=== PATIENT | female | born 1965 | race Caucasian/White ===

== ENCOUNTER 2021-08-15 10:28 | Day surgery (SDC) | payer MEDICARE, MEDICAID, SELFPAY ==
--- NOTE | 2021-08-14 10:44 | P.CONAN_ITS ---
Documented by User: Aidee Howard NP 08/14/21 10:45 HPI - Anesthesia Eval Consult details Narrative: 56yo F for Colonoscopy prison resident, Guardian for consents Overstim/loud noises can cause stress induced seizures PMFSH Active Problems Active Problems: All Active Problems (Updated 07/19/21 @ 14:20 by Magdalena Garrett RN) Cervical cancer screening (Acute) Adult general medical exam (Acute) Paronychia (Acute) Paronychia of fourth toe of left foot (Acute) Seizures (Acute) Anxiety (Acute) Chronic idiopathic constipation (Acute) Difficult bowel movements (Acute) Screening for breast cancer (Acute) Screening for colon cancer (Acute) Screening for diabetes mellitus (Acute) Screening for hyperlipidemia (Acute) Incontinence of urine in female (Acute) Conjunctivitis (Acute) Mentally challenged (Acute) Status epilepticus (Acute) Past Medical History Medical History Anxiety Chronic idiopathic constipation Conjunctivitis COVID-19 vaccine series completed Difficult bowel movements Incontinence of urine in female Mentally challenged Resides in extermination supervisor care facility Screening for breast cancer Screening for colon cancer Screening for diabetes mellitus Screening for hyperlipidemia Seizures Status epilepticus Family History Family History Father No problems noted. Mother Diabetes Cancer Surgical History Surgical History H/O tooth extraction Social History Social History Household Members Other:: resides in longterm Housing: Other Housing Other:: longterm Are you a primary career technical education teacher to a significant other at home: No Do you presently have visiting nurse or other home services: Yes (as above noted) Alcohol intake: never Patient Tobacco Use Status: Never used Tobacco e-Cigarette/Vaping Use: Never Used Second Hand Smoke Exposure: No Use of substances other than those prescribed or required for medical reasons: No Are you DNR?: No Advance Directives: No Advance Directives Information Provided: Yes service: No Current occupational status: disabled Meds Allergies Allergy/AdvReac Type Severity Reaction Status Date / Time No Known Allergies Allergy Verified 05/31/21 10:54 Home Medications Medication Instructions Recorded Confirmed Last Taken Type clonazepam 1 mg tablet 1 mg PO BEDTIME 03/20/20 07/19/21 Unknown History lamotrigine 200 mg tablet 200 mg PO BID 03/20/20 07/19/21 Unknown History phenobarbital 97.2 mg tablet 97.2 mg PO BEDTIME 03/20/20 07/19/21 Unknown History lacosamide 100 mg tablet (Vimpat) 100 mg PO BID 03/21/20 07/19/21 08/15/21 08:00 History fluoxetine 10 mg capsule 10 mg PO QAM 10/02/20 07/19/21 Unknown History lorazepam 0.5 mg tablet 0.5 mg PO BEDTIME PRN 10/02/20 07/19/21 Unknown History perampanel 2 mg tablet 2 mg PO BEDTIME 10/02/20 07/19/21 Unknown History Exam Exam Date and Time: August 14, 2021 1044 Assessment and Plan Assessment Anesthesia Assessment: Chart Reviewed Documented by User: Karlos Mojica MD 08/15/21 15:49 PMFSH Past Medical History Medical History Anxiety Chronic idiopathic constipation Conjunctivitis COVID-19 vaccine series completed Difficult bowel movements Incontinence of urine in female Mentally challenged Resides in extermination supervisor care facility Screening for breast cancer Screening for colon cancer Screening for diabetes mellitus Screening for hyperlipidemia Seizures Status epilepticus Family History Family History Father No problems noted. Mother Diabetes Cancer Family history of problems with anesthesia: No Surgical History Surgical History H/O tooth extraction History of Problems with Anesthesia: No Social History Social History Household Members Other:: resides in longterm Housing: Other Housing Other:: longterm Are you a primary career technical education teacher to a significant other at home: No Do you presently have visiting nurse or other home services: Yes (as above noted) Alcohol intake: never Patient Tobacco Use Status: Never used Tobacco e-Cigarette/Vaping Use: Never Used Second Hand Smoke Exposure: No Use of substances other than those prescribed or required for medical reasons: No Are you DNR?: No Advance Directives: No Advance Directives Information Provided: Yes service: No Current occupational status: disabled Meds Allergies Allergy/AdvReac Type Severity Reaction Status Date / Time No Known Allergies Allergy Verified 05/31/21 10:54 Home Medications Medication Instructions Recorded Confirmed Last Taken Type clonazepam 1 mg tablet 1 mg PO BEDTIME 03/20/20 07/19/21 Unknown History lamotrigine 200 mg tablet 200 mg PO BID 03/20/20 07/19/21 Unknown History phenobarbital 97.2 mg tablet 97.2 mg PO BEDTIME 03/20/20 07/19/21 Unknown History lacosamide 100 mg tablet (Vimpat) 100 mg PO BID 03/21/20 07/19/21 08/15/21 08:00 History fluoxetine 10 mg capsule 10 mg PO QAM 10/02/20 07/19/21 Unknown History lorazepam 0.5 mg tablet 0.5 mg PO BEDTIME PRN 10/02/20 07/19/21 Unknown History perampanel 2 mg tablet 2 mg PO BEDTIME 10/02/20 07/19/21 Unknown History Exam Airway Mallampati Class: IV (Patient not coperative for a proper airway exam ) Loose/Missing/Broken Teeth: Yes (NO teeth ) Heart: S1, S2 Lungs: b/l breath sounds Assessment and Plan Assessment Anesthesia Assessment: Anesthesia Plan Discussed Final Anesthetic Review Family History of Problems with Anesthesia: No History of Problems with Anesthesia: No NPO: Yes ASA Class: III Final Preanesthetic Review: Meds/Allgs Chart Reviewed, Consent Obtained/Reviewed and Anes Risks/Benef Reviewed Patient Risk: High Procedure Risk: Intermediate Anesthetic Plan Anesthetic Plan: MAC: Disposition: Standard PACU
[2021-08-15 11:23] VITALS: BP 126/72; PULSE 98; RESP 18; TEMP 36.6; O2SAT 98; BMI 20.1
[2021-08-15] MEDS: Lactated Ringers 1,000 ML 100 ML IVCONT (11:33)
[2021-08-15 12:35] VITALS: BP 111/51; PULSE 103; RESP 17; TEMP 36.5; O2SAT 98
--- NOTE | 2021-08-15 12:36 | P.BOP_ITS ---
Brief Operative Note Date of Service: 08/15/21 Pre-op diagnosis: Screening Post-op diagnosis: other (Colon polyps) Procedure: Colonoscopy to the cecum and TI with hot snare polypectomy x 2 Surgeon: Yusuf Barraza Anesthesia: MAC Was an Set Up Mechanic Automatic Line used for this Procedure?: No Estimated blood loss (mL): 0 Pathology: other (A. Cecal polyps x 2) Condition: stable Disposition: PACU
[2021-08-15 12:50] VITALS: BP 110/80; PULSE 90; RESP 16; TEMP 35.9; O2SAT 99
--- NOTE | 2021-08-16 00:37 | OP_ITS ---
SURGEON: Yusuf Barraza MD INDICATIONS: The patient presents for evaluation of colorectal cancer screening. Full consent has been obtained from her legal guardian, her brother, Buzz, including risks of bleeding and perforation. PREOPERATIVE DIAGNOSIS: Colorectal cancer screening. POSTOPERATIVE DIAGNOSIS: PROCEDURE PERFORMED: ESTIMATED BLOOD LOSS: COMPLICATIONS: ANESTHESIA: Monitored anesthesia care. ASSISTANTS: SPECIMENS: PROCEDURES: Colonoscopy to cecum and terminal ileum with hot snare polypectomy. POSTOPERATIVE DIAGNOSES: Colorectal cancer screening, colon polyps, diverticulosis, and internal hemorrhoids. DESCRIPTION OF PROCEDURE: The patient was placed in the left lateral decubitus position. The digital rectal exam revealed no abnormalities. The Olympus video pediatric colonoscope was entered into the rectum and advanced easily to the cecum. Once in the cecum, I did identify cecal pouch with appendiceal orifice and a normal-appearing ileocecal valve. The terminal ileum was cannulated and appeared normal. The scope was withdrawn back in the colon. The entire cecum was well visualized. In the cecum, there was an approximately 12 mm polyp and a 5 mm polyp. These were both removed with a hot snare polypectomy and recovered by suction. Both polypectomy sites appeared clean, without any sign of residual polyp nor bleeding. The remainder of the cecum appeared normal. The scope was then slowly withdrawn assessing all mucosal surfaces carefully. Preparation was excellent. I did not visualize any other polyps, colitis, or angiodysplasia. There was a mild amount of sigmoid diverticulosis. In the rectum, scope was retroflexed visualizing internal hemorrhoids, but no other pathology. The rectal mucosa appeared normal. The scope was straightened and withdrawn from the patient. She tolerated the procedure well and was returned to the recovery area in stable condition. IMPRESSION: 1. Colon polyps. 2. Diverticulosis. 3. Internal hemorrhoids. PLAN: The results of the pathology will be checked. Assuming these are tubular adenoma, I would recommend a followup colonoscopy in 3 years for further surveillance. She will otherwise see me on a p.r.n. basis. Instructions have been given that she should not use any aspirin and NSAIDs for 1 week. This has been discussed with her brother. MD MILLA Feng/GEOFF / [id number]
== END 2021-08-15 14:31 | disposition home or self-care (01) ==
PROVIDERS: PCP Internal Medicine; Visit Provider Internal Medicine
PROC: 0DJD8ZZ Inspection of Lower Intestinal Tract, Via Natural or Artificial Opening Endoscopic (ICD-10-PCS; CPT 45378; principal; 2021-08-15 11:20)
DX: Z12.11 Encounter for screening for malignant neoplasm of colon (principal); D12.0 Benign neoplasm of cecum; K57.30 Diverticulosis of large intestine without perforation or abscess without bleeding; K64.8 Other hemorrhoids; K59.00 Constipation, unspecified; R41.9 Unspecified symptoms and signs involving cognitive functions and awareness; G40.901 Epilepsy, unspecified, not intractable, with status epilepticus; Z79.899 Other long term (current) drug therapy
CPT/HCPCS: 45385; 88305; J2370

== ENCOUNTER 2021-11-13 14:00 | Outpatient (REF) | payer MEDICARE, MEDICAID, SELFPAY | END 2021-11-13 14:01 | disposition home or self-care (01) | LOC: HO.MAMMO 14:00 | PROVIDERS: PCP Internal Medicine; Visit Provider Internal Medicine | DX: Z13.89 Encounter for screening for other disorder (principal) ==

== ENCOUNTER 2022-11-21 15:57 | Outpatient (AMB) | payer MEDICARE, MEDICAID, SELFPAY ==
--- NOTE | 2022-11-21 16:44 | MHC.PC.OV ---
Vital Signs 11/21/22 16:45 Height 4 ft 8 in Weight 118 lb BMI 26.5 BP 118/72 Blood Pressure Location Rt brachial Position Sitting Pulse 99 Pulse Source Pulse Oximeter Pulse Oximetry (%) 97 Oxygen Delivery Method Room Air Intake Visit Reasons: [place] 11/12/22, fall on knees Intake Note: Patient is here to follow-up after a visit the emergency department at [facility] on 11/12/22 Soil Sampler Required: No Operating Theatre Technician: Present Accompanied by: staff Allergies No Known Allergies Allergy (Verified 11/21/22 16:52) Medication List - Last Reconciled 11/22/22 by Mago Baker MD clonazepam 1 mg PO BEDTIME diaper,brief,adult,disposable As directed fluoxetine 10 mg PO QAM Gait belt As directed lacosamide (Vimpat) 100 mg PO BID lamotrigine 200 mg PO BID miscellaneous medical supply HOSPITAL BED WITH MATTRESS perampanel 2 mg PO BEDTIME phenobarbital 97.2 mg PO BEDTIME Tobacco use date assessed: 11/21/22 Dental Screening Dental Screen Date: 11/21/22 Did you have a dental visit in the last 12 months?: Yes Did you have a dental problem in the last 6 months where you did not have access to dental care?: No Was dental information given to patient?: Patient has dentist HPI HPI Comments History of Present Illness Details This is a 57-year-old female mentally challenged with seizures and anxiety that comes today accompanied by staff member from her home due to any injury that happened 11/12/2022 and had to go to ER. Patient fell on her knees. Does not seem to be in pain or has any gait abnormality. Seizures stable with medications and this is follow by Neurology. Anxiety stable with benzodiazepines. No acute complaint. [facility] Medical History (Updated 11/22/22 @ 10:03 by Mago Baker MD) Anxiety Chronic idiopathic constipation Conjunctivitis COVID-19 vaccine series completed Difficult bowel movements Incontinence of urine in female Mentally challenged Resides in [facility] care facility Screening for breast cancer Screening for colon cancer Screening for diabetes mellitus Screening for hyperlipidemia Seizures Status epilepticus Surgical History H/O tooth extraction Family History Father No problems noted. Mother Diabetes Cancer Social History Household Members Other:: resides in skilled nursing Housing: Other Housing Other:: skilled nursing Are you a primary managed care coordinator to a significant other at home: No Do you presently have visiting nurse or other home services: Yes (as above noted) Alcohol intake: never Patient Tobacco Use Status: Never used Tobacco e-Cigarette/Vaping Use: Never Used Second Hand Smoke Exposure: No service: No Current occupational status: disabled Cognitive needs: No Hearing needs: No Vision needs: No Questionnaire Thrive Questionnaire Date Thrive assessed: 08/01/22 JAMES-7 AMB Questionnaire JAMES-7 Date JAMES - 7 assessed: 08/01/22 Source: Developed by Drs. Yusuf Landin, Abi Gallardo, Deyvi Lomeli and colleagues, with an educational javi from [employer]. Review of Systems Const All systems reviewed & are unremarkable except as noted in HPI and below Eyes Reports no additional complaints, Denies change in vision and Denies other visual disturbances Card Denies chest pain at rest, Denies chest pain with activity, Denies edema, Denies irregular heart rhythm, Denies claudication, Denies dyspnea, Denies dyspnea on exertion, Denies orthopnea, Denies paroxysmal nocturnal dyspnea and Denies slow heart rate Resp Denies cough, Denies dyspnea and Denies dyspnea on exertion GI Denies abdominal pain, Denies change in bowel habits, Denies excessive flatus, Denies nausea and Denies vomiting Denies urinary incontinence, Denies urinary hesitancy and Denies urinary urgency Musc Denies abnormal gait, Denies atrophy, Denies deformity and Denies limited range of motion Skin/Breast Denies bleeding lesions, Denies changing lesions and Denies rash Neuro Denies abnormal gait and Denies lack of coordination Physical exam (Primary Care) Vital Signs: Last Vital Signs Pulse 99 11/21/22 16:45 BP 118/72 11/21/22 16:45 Pulse Ox 97 11/21/22 16:45 Oxygen Delivery Method Room Air 11/21/22 16:45 BMI result Body Mass Index 26.5 Tobacco/Smoking Status: Tobacco use Status Tobacco use date assessed 11/21/22 11/21/22 16:45 Patient Tobacco Use Status Never used Tobacco 11/21/22 16:45 e-Cigarette/Vaping Use Never Used 11/21/22 16:45 Thrive Assessment: Date of Thrive Assessment Date Thrive assessed 08/01/22 11/21/22 16:45 Eyes General: appearance normal, both eyes and all related structures Eyelids: Yes eyelids normal Conjunctivae: conjunctivae normal Neck Neck: Yes normal visual inspection and Yes supple Resp Effort & Inspection: normal respiratory effort Auscultation: clear to auscultation bilaterally Cardio Jugular venous distension: no JVD Rate: regular rate Rhythm: regular rhythm Heart sounds: S1 normal heart sound present and S2 normal heart sound present Extrem General: Yes full ROM Assessment and Plan Assessment & Plan (1) Knee injury: Code(s): S89.90XA - Unspecified injury of unspecified lower leg, initial encounter Plan: Continue walking as before and doing her daily activities. (2) Seizures: Comment: last seizure 06/26/21-full body tremors-lasted 10 seconds Code(s): R56.9 - Unspecified convulsions Plan: Continue Vimpat and phenobarbital. Follow-up with Neurology. (3) Anxiety: Code(s): F41.9 - Anxiety disorder, unspecified Plan: Continue benzodiazepines. Orders: Orders Comprehensive [place]. Panel Fast 11/21/22 R56.9 - Unspecified convulsions Lipid Panel 11/21/22 Z00.00 - Encounter for general adult medical examination without abnormal findings Complete Blood Count Auto Diff 11/21/22 R56.9 - Unspecified convulsions Coding Level of Care Code Est Pt Level 3 (80572) Diagnoses Knee injury S89.90XA Seizures R56.9 Anxiety F41.9 Time Spent (min) 19
[2022-11-21 16:45] VITALS: BP 118/72; PULSE 99; O2SAT 97; BMI 26.5
== END 2022-11-21 16:58 | disposition home or self-care (01) ==
PROVIDERS: PCP Internal Medicine; Visit Provider Internal Medicine
DX: S89.90XA Unspecified injury of unspecified lower leg, initial encounter (principal); R56.9 Unspecified convulsions; F41.9 Anxiety disorder, unspecified
CPT/HCPCS: 99213

== ENCOUNTER 2022-12-17 09:59 | Outpatient (AMB) | payer MEDICARE, MEDICAID, SELFPAY ==
--- NOTE | 2022-12-17 10:08 | MHC.PC.OV ---
Vital Signs 12/17/22 10:09 Height 4 ft 8 in Weight 118 lb 9 oz BMI 26.6 BP 120/80 Blood Pressure Location Lt brachial Position Sitting Pulse 113 H Pulse Source Pulse Oximeter Pulse Oximetry (%) 95 Oxygen Delivery Method Room Air Intake Visit Reasons: physical exam Intake Note: Patient is here today for a physical. Graphic Design Intern Required: No Accompanied by: Crystal-Custodial Allergies No Known Allergies Allergy (Verified 12/17/22 10:28) Medication List - Last Reconciled 12/17/22 by Mago Baker MD clonazepam 1 mg PO BEDTIME diaper,brief,adult,disposable As directed fluoxetine 10 mg PO QAM Gait belt As directed lacosamide (Vimpat) 100 mg PO BID lamotrigine 200 mg PO BID miscellaneous medical supply HOSPITAL BED WITH MATTRESS perampanel 2 mg PO BEDTIME phenobarbital 97.2 mg PO BEDTIME Tobacco use date assessed: 11/21/22 Dental Screening Dental Screen Date: 12/17/22 Did you have a dental visit in the last 12 months?: No Did you have a dental problem in the last 6 months where you did not have access to dental care?: No Was dental information given to patient?: No HPI HPI Comments History of Present Illness Details This is a 57-year-old female with seizures that comes for her physical exam accompanied by 1 of the staff members from the home that she lives. Patient has developmental delay and keeps repeating same phrases such as hi, how are you? and good job . Seizures has happen the past month and last 10-20 seconds. This is follow by Neurology. Last colonoscopy was 2021 showing tubular adenoma. No acute complaint. [facility] Medical History Anxiety Chronic idiopathic constipation Conjunctivitis COVID-19 vaccine series completed Difficult bowel movements Incontinence of urine in female Mentally challenged Resides in terminal worker care facility Screening for breast cancer Screening for colon cancer Screening for diabetes mellitus Screening for hyperlipidemia Seizures Status epilepticus Surgical History H/O tooth extraction Family History Father No problems noted. Mother Diabetes Cancer Social History Household Members Other:: resides in prison Housing: Other Housing Other:: prison Are you a primary nurse healthcare manager to a significant other at home: No Do you presently have visiting nurse or other home services: Yes (as above noted) Alcohol intake: never Patient Tobacco Use Status: Never used Tobacco e-Cigarette/Vaping Use: Never Used Second Hand Smoke Exposure: No service: No Current occupational status: disabled Cognitive needs: No Hearing needs: No Vision needs: No Questionnaire Thrive Questionnaire Date Thrive assessed: 08/01/22 JAMES-7 AMB Questionnaire JAMES-7 Date JAMES - 7 assessed: 08/01/22 Source: Developed by Drs. Yusuf Landin, Abi Gallardo, Deyvi Lomeli and colleagues, with an educational javi from [employer]. Review of Systems Const All systems reviewed & are unremarkable except as noted in HPI and below Eyes Reports no additional complaints, Denies change in vision and Denies other visual disturbances Card Denies chest pain at rest, Denies chest pain with activity, Denies edema, Denies irregular heart rhythm, Denies claudication, Denies dyspnea, Denies dyspnea on exertion, Denies orthopnea, Denies paroxysmal nocturnal dyspnea and Denies slow heart rate Resp Denies cough, Denies dyspnea and Denies dyspnea on exertion GI Denies abdominal pain, Denies change in bowel habits, Denies excessive flatus, Denies nausea and Denies vomiting Denies urinary incontinence, Denies urinary hesitancy and Denies urinary urgency Musc Denies abnormal gait, Denies atrophy, Denies deformity and Denies limited range of motion Skin/Breast Denies bleeding lesions, Denies changing lesions and Denies rash Neuro Denies abnormal gait and Denies lack of coordination Physical exam (Primary Care) Vital Signs: Last Vital Signs Pulse 113 H 12/17/22 10:09 BP 120/80 12/17/22 10:09 Pulse Ox 95 12/17/22 10:09 Oxygen Delivery Method Room Air 12/17/22 10:09 BMI result Body Mass Index 26.6 Tobacco/Smoking Status: Tobacco use Status Tobacco use date assessed 11/21/22 12/17/22 10:09 Patient Tobacco Use Status Never used Tobacco 12/17/22 10:09 e-Cigarette/Vaping Use Never Used 12/17/22 10:09 Thrive Assessment: Date of Thrive Assessment Date Thrive assessed 08/01/22 12/17/22 10:09 Eyes General: appearance normal, both eyes and all related structures Eyelids: Yes eyelids normal Conjunctivae: conjunctivae normal Neck Neck: Yes normal visual inspection and Yes supple Resp Effort & Inspection: normal respiratory effort Auscultation: clear to auscultation bilaterally Cardio Jugular venous distension: no JVD Rate: regular rate Rhythm: regular rhythm Heart sounds: S1 normal heart sound present and S2 normal heart sound present Extrem General: Yes full ROM Assessment and Plan Assessment & Plan (1) Adult general medical exam: Code(s): Z00.00 - Encounter for general adult medical examination without abnormal findings Plan: Repeat in a year. (2) Seizures: Comment: last seizure 06/26/21-full body tremors-lasted 10 seconds Code(s): R56.9 - Unspecified convulsions Plan: Continue phenobarbial and lamictal. Follow up with neurology. Orders: Orders Comprehensive [place]. Panel Fast Today Z00.00 - Encounter for general adult medical examination without abnormal findings Lipid Panel Today Z00.00 - Encounter for general adult medical examination without abnormal findings Complete Blood Count Auto Diff Today R56.9 - Unspecified convulsions Phenobarbital Today R56.9 - Unspecified convulsions Lamotrigine Lamictal Today R56.9 - Unspecified convulsions Coding Level of Care Code Est Pt Prev Care 40-64y(04126) Diagnoses Adult general medical exam Z00.00 Seizures R56.9 Time Spent (min) 33
[2022-12-17 10:09] VITALS: BP 120/80; PULSE 113; O2SAT 95; BMI 26.6
== END 2022-12-17 10:40 | disposition home or self-care (01) ==
PROVIDERS: PCP Internal Medicine; Visit Provider Internal Medicine
DX: Z00.00 Encounter for general adult medical examination without abnormal findings (principal); R56.9 Unspecified convulsions
CPT/HCPCS: 99396

== ENCOUNTER 2022-12-19 08:45 | Outpatient (REF) | payer MEDICARE, MEDICAID, SELFPAY ==
[2022-12-19 09:00] LABS: MANUAL DIFF FLAG NO
[2022-12-19 09:47] LABS: Basophils Percent Auto 0.5 % (0-2); Eosinophils Absolute Auto 0.1 X10*3/uL (0.0-0.4); Eosinophils Percent Auto 1.4 % (0-4); Hematocrit 40.7 % (37.0-47.0); Hemoglobin 13.6 g/dl (12.0-16.0); Imm Gran Abs Auto 0.01 X10*3/uL (0.00-0.03); Imm Gran Pct Auto 0.1 % (0.0-0.4); Lymphocytes Absolute Auto 2.9 X10*3/uL (1.2-4.9); Lymphocytes Percent Auto 36.8 % (20-40); Mean Corpuscular HGB Conc 33.4 g/dl (31.0-35.0); Mean Corpuscular Hemoglobin 31.8 pg (27.0-33.0); Mean Corpuscular Volume 95.1 fL (80.0-98.0); Mean Platelet Volume 10.1 fL (9.4-12.3); Monocytes Absolute Auto 0.5 X10*3/uL (0.1-1.2); Monocytes Percent Auto 6.2 % (2-11); Neutrophils Absolute Auto 4.3 x10*3/uL (2.0-8.3); Platelet Count 328 X10*3/uL (160-400); Red Blood Count 4.28 X10*6/uL (4.20-5.50); White Blood Count 7.9 X10*3/uL (4.8-10.8)
[2022-12-19 10:33] LABS: Alanine Aminotransferase < 5 U/L (0-31); Albumin Level 4.2 g/dL (3.5-5.0); Alkaline Phosphatase 134 U/L (39-117); Anion Gap 15 (12-20); Aspartate Amino Transferase 19 U/L (5-31); Bilirubin Total 0.3 mg/dL (0.0-1.0); Blood Urea Nitrogen 12 mg/dL (9-16); Calcium 9.5 mg/dL (8.4-10.2); Carbon Dioxide 24 mmol/L (22-29); Chloride 106 mmol/L (96-108); Cholesterol 343 mg/dL (<200); Estimated Glomerular Filt Rate 49; Glucose Fasting 84 mg/dL (60-99); HDL Cholesterol 61 mg/dL (>40); LDL Cholesterol Calculated 263 mg/dL (<100); Potassium 4.3 mmol/L (3.3-5.1); Sodium 141 mmol/L (135-145); Total Protein 7.2 g/dL (6.5-8.0); Triglycerides 95 mg/dL (<150)
[2022-12-24 04:49] LABS: Lamotrigine Lamictal 7.2 mcg/mL (2.5-15.0)
== END 2022-12-19 08:46 | disposition home or self-care (01) ==
LOC: HO.LAB 08:45
PROVIDERS: PCP Internal Medicine; Visit Provider Internal Medicine
DX: Z00.00 Encounter for general adult medical examination without abnormal findings (principal); R56.9 Unspecified convulsions; Z79.899 Other long term (current) drug therapy
CPT/HCPCS: 36415; 80053; 80061; 80175; 80184; 85025

== ENCOUNTER 2023-02-03 11:08 | Outpatient (AMB) | payer MEDICARE, MEDICAID, SELFPAY ==
--- NOTE | 2023-02-03 11:10 | A.OFFPC_ITS ---
Vital Signs 3 02/03/23 11:11 Height 4 ft 8 in Weight 53.07 kg BMI 26.2 BP 122/82 Blood Pressure Location Lt brachial Position Sitting Intake Visit Reasons: ed 01/07/2023 fall & hit head Intake Note: Patient here for [facility] follow up 01/07/23 fall, hit head Disc Inspector Required: No Accompanied by: staff Allergies No Known Allergies Allergy (Verified 02/03/23 11:13) Tobacco use date assessed: 11/21/22 Dental Screening Dental Screen Date: 02/03/23 Did you have a dental visit in the last 12 months?: No Did you have a dental problem in the last 6 months where you did not have access to dental care?: No Was dental information given to patient?: Patient declined HPI HPI Comments 2 History of Present Illness0 Details 57-year-old female past medical history significant for status epilepticus, mental delay,anxiety, chronic idiopathic constipation. Patient of Dr. Sanches presents today for emergency room follow-up patient was being helped to bathroom by fdc staff she was sitting on the toilet she became over stimulated striking the back of her head on a railing. Patient was evaluated and [facility] Emergency Room. Patient was neurologically her baseline denies any seizure activity, no acute injury or hematoma noted to occiptal region. Patient reports today with fdc staff, fdc staff patient. For see report that patient jumped up from the couch this week and in her usual behavior and fell to the ground striking her left frontal region overhead, patient was evaluated a number [facility] Emergency Room again no acute injury does have lightened ecchymosis noted to left frontal region. Denied any loss of consciousness, seizure activity, per fdc staff patient neurologically at her baseline. During this appointment fdc staff noted that patient has left eye is clear appears red with for which she just started developing today and concerned over possible pinkeye. Will send erythromycin ointment for this. [facility]LY [facility], [facility] Medical History Anxiety Chronic idiopathic constipation Conjunctivitis COVID-19 vaccine series completed Difficult bowel movements Incontinence of urine in female Mentally challenged Resides in detention care facility Screening for breast cancer Screening for colon cancer Screening for diabetes mellitus Screening for hyperlipidemia Seizures Status epilepticus Surgical History H/O tooth extraction Family History Father No problems noted. Mother Diabetes Cancer Social History Household Members Other:: resides in fdc Housing: Other Housing Other:: fdc Are you a primary overnight caregiver to a significant other at home: No Do you presently have visiting nurse or other home services: Yes (as above noted) Alcohol intake: never Patient Tobacco Use Status: Never used Tobacco e-Cigarette/Vaping Use: Never Used Second Hand Smoke Exposure: No service: No Current occupational status: disabled Cognitive needs: No Hearing needs: No Vision needs: No Questionnaire Thrive Questionnaire Date Thrive assessed: 08/01/22 JAMES-7 AMB Questionnaire JAMES-7 Date JAMES - 7 assessed: 08/01/22 Source: Developed by Drs. Yusuf Landin, Abi Gallardo, Deyvi Lomeli and colleagues, with an educational javi from [employer]. Review of Systems Const Denies chills, Denies fatigue, Denies fever(s) and Denies poor appetite Eyes Denies no additional complaints ENT Reports Normal hearing present Card Denies chest pain, Denies syncope, Denies rapid heart rate and Denies dyspnea Resp Denies cough and Denies dyspnea GI Denies change in stool character, Denies constipation, Denies diarrhea, Denies nausea and Denies vomiting Denies urinary frequency, Denies dysuria and Denies urinary urgency Neuro Reports Normal hearing present, Denies confusion and Denies syncope Psych Denies confusion Endo Denies fatigue Physical exam (Primary Care) Vital Signs: Last Vital Signs BP 122/82 02/03/23 11:11 BMI result Body Mass Index 26.2 Tobacco/Smoking Status: Tobacco use Status Tobacco use date assessed 11/21/22 02/03/23 11:17 Patient Tobacco Use Status Never used Tobacco 02/03/23 11:17 e-Cigarette/Vaping Use Never Used 02/03/23 11:17 Thrive Assessment: Date of Thrive Assessment Date Thrive assessed 08/01/22 02/03/23 11:17 Const General: No confusion Orientation/consciousness: No confusion HENMT Head: Yes normocephalic and Yes atraumatic Head images: 2 1. lighting ecchymosis and scabbed superficial abrasion 0.25cmx0.25cm. Eyes Conjunctivae: conjunctivae normal Chest Chest palpation & inspection: normal inspection of the chest Resp Effort & Inspection: normal respiratory effort Auscultation: clear to auscultation bilaterally, no crackles, no rhonchi and no wheezes Cardio Rate: regular rate Rhythm: regular rhythm Heart sounds: S1 normal heart sound present and S2 normal heart sound present GI Inspection: Yes normal to inspection Neuro General: No confusion Cranial nerves: Yes Normal hearing present Extrem General: No edema Office Procedures Flu Questionnaire Does the patient have a severe egg allergy?: No Does the patient have severe life threatening allergies?: No Does the patient have a fever or illness today?: No Has the patient ever had Guillain-[place] Syndrome?: No Has the patient ever had any past reaction to a flu shot?: No Immunizations flu vacc [id number] 6mos up(PF) 60 mcg(15 mcgx4)/0.5 mL IM syringe Performing Provider: JAY Sumner Performing Location: [facility] Administered by: KIM Michelle on 02/03/23 11:46 2 Dose Route Admin Location Dispensed Lot Number Expiration Date [employer] Faculty Member 0.5 mL IM Left Deltoid 0.5 mL [id number] 10/12/23 [id number] [employer] 2 VIS Given Date VIS Provided VIS Publication Date 02/03/23 Single Vaccine 20 Eligibility Eligibility Date Funding Source Not [facility] Eligible 02/03/23 Private Assessment and Plan Assessment & Plan (1) Gait instability: Code(s): R26.81 - Unsteadiness on feet Plan: Referral entered to physical therapy given recent falls for gait instability. (2) Left conjunctivitis: Code(s): H10.9 - Unspecified conjunctivitis Plan: Erythromycin q.i.d. x7 days sent to patient's pharmacy. (3) Seizures: Comment: last seizure 06/26/21-full body tremors-lasted 10 seconds Code(s): R56.9 - Unspecified convulsions Plan: Continue on current medications. Continue to follow with Dr. Lovett Orders: Orders 2 PT Evaluation and Treatment Today R26.81 - Unsteadiness on feet Influenza [id number] Immunization Today Z23 - Encounter for immunization Medications: New 2 erythromycin x 7 days 0.5 inches ophthalmic (eye) QID 3.5 grams 0RF H10.9 - Unspecified conjunctivitis, R26.81 - Unsteadiness on feet Coding Level of Care Code Est Pt Level 4 (83903) Diagnoses Gait instability R26.81 Left conjunctivitis H10.9 Seizures R56.9
[2023-02-03 11:11] VITALS: BP 122/82; BMI 26.2
== END 2023-02-03 11:42 | disposition home or self-care (01) ==
PROVIDERS: PCP Internal Medicine; Visit Provider Nurse Practitioner Family
DX: Z23 Encounter for immunization (principal); R26.81 Unsteadiness on feet; R56.9 Unspecified convulsions; H10.32 Unspecified acute conjunctivitis, left eye
CPT/HCPCS: 90471; 90686; 99214

== ENCOUNTER 2023-02-19 12:32 | Outpatient (AMB) | payer MEDICARE, MEDICAID, SELFPAY ==
[2023-02-19 12:34] VITALS: BP 100/60; PULSE 94; O2SAT 98; BMI 25.4
--- NOTE | 2023-02-19 12:34 | MHC.PC.OV ---
Vital Signs 02/19/23 12:34 Height 4 ft 8 in Weight 113 lb 4 oz BMI 25.4 BP 100/60 Blood Pressure Location Lt brachial Position Sitting Pulse 94 Pulse Source Pulse Oximeter Pulse Oximetry (%) 98 Oxygen Delivery Method Room Air Intake Visit Reasons: Wing 02/04 hit head on back of toilet Emergency Planner Required: No Accompanied by: Self / Same As Patient Allergies No Known Allergies Allergy (Verified 02/19/23 12:53) Medication List - Last Reconciled 02/19/23 by Maximus Lanza MD clonazepam 1 mg PO BEDTIME diaper,brief,adult,disposable As directed erythromycin 0.5 inches ophthalmic (eye) QID fluoxetine 10 mg PO QAM Gait belt As directed lacosamide (Vimpat) 100 mg PO BID lamotrigine 200 mg PO BID miscellaneous medical supply HOSPITAL BED WITH MATTRESS perampanel 2 mg PO BEDTIME phenobarbital 97.2 mg PO BEDTIME polyethylene glycol 3350 (Miralax) 17 grams PO DAILY PRN 30 days Tobacco use date assessed: 02/19/23 Dental Screening Dental Screen Date: 02/19/23 Did you have a dental visit in the last 12 months?: No Did you have a dental problem in the last 6 months where you did not have access to dental care?: No Was dental information given to patient?: Patient has dentist HPI Wing 02/04 hit head on back of toilet HPI Details Patient was brought in today by longterm staff for her [facility] follow up She reportedly hit the back of her head on the toilet when she slipped while they were trying to help her get down onto the toilet back on 02/04/2023 Patient apparently sustained a superficial laceration injury over her occipital scalp area but after being examined in the ER, was determined that she did not require any wound closure as the injury was very syperficial and small alf staff states that patient has been doing well since her ER visit without any acute issues She denies any headaches or dizziness Denies any chest pains, no SOB No nausea/vomiting, no abdominal pain and no change in bowel habits noted FOR[facility] Medical History (Updated 02/19/23 @ 13:22 by Maximus Lanza MD) Obsessive compulsive disorder Chronic static encephalopathy Epilepsy 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 Mother Diabetes Cancer Social History Household Members Other:: resides in longterm Housing: Other Housing Other:: longterm Are you a primary field care advocate to a significant other at home: No Do you presently have visiting nurse or other home services: Yes (as above noted) Alcohol intake: never Patient Tobacco Use Status: Never used Tobacco e-Cigarette/Vaping Use: Never Used Second Hand Smoke Exposure: No service: No Current occupational status: disabled Cognitive needs: No Hearing needs: No Vision needs: No Questionnaire PHQ-9 Over the last 2 weeks, how often have you been bothered by any of the following problems? 1. Little interest or pleasure in doing things: not at all 2. Feeling down, depressed, or hopeless: not at all 3. Trouble falling or staying asleep, or sleeping too much: not at all 4. Feeling tired or having little energy: not at all 5. Poor appetite or overeating: not at all 6. Feeling bad about yourself - or that you are a failure or have let yourself or your family down: not at all 7. Trouble concentrating on things, such as reading the newspaper or watching television: not at all 8. Moving or speaking so slowly that other people could have noticed. Or the opposite - being so fidgety or restless that you have been moving around a lot more than usual: not at all 9. Thoughts that you would be better off or of hurting yourself in some way: not at all Total score: 0 Depression Screening Interpretation: Negative Depression Screening Done: Yes 20698 - PHQ-9 Billing: Yes Source: Developed by Drs. Yusuf Landin, Abi Gallardo, Deyvi Lomeli and colleagues, with an educational javi from [employer]. Thrive Questionnaire Date Thrive assessed: 02/19/23 I am a: Patient What is your living situation today?: I have a steady place to live Within the past 12 months, did the food you bought not last and you didn't have the money to get more?: Never true Within the past 12 months, did you worry whether your food would run out before you got money to buy more?: Never true Do you have trouble paying for medicines?: No Do you have trouble getting transportation to medical appointments?: No Do you have trouble paying your heating and electricity bill?: No Do you have trouble taking care of your child, family member or friend?: No Do you have trouble with day-to-day activities such as bathing, preparing meals, shopping, managing finances, etc.?: No Are you currently unemployed and looking for a job?: No Are you interested in more education?: No Please select the resources that you would like help with: None Currently or been in a relationship where the following occur: no concerns reported AUDIT C Alcohol Use Questionnaire (AUDIT-C) 1. How often do you have a drink containing alcohol?: Never Total Score: 0 Score Reviewed/Action Taken: Yes JAMES-7 AMB Questionnaire JAMES-7 Date JAMES - 7 assessed: 02/19/23 Feeling nervous, anxious, or on edge: 0 = Not at all Not being able to stop or control worryin = Not at all Worrying too much about different things: 0 = Not at all Trouble relaxin = Not at all Being so restless that it is hard to sit still: 0 = Not at all Becoming easily annoyed or irritable: 0 = Not at all Feeling afraid as if something awful might happen: 0 = Not at all Total JAMES-7 score (0-4 normal; 5-9 mild; 10-14 moderate; 15-21 severe): 0 Source: Developed by Drs. Yusuf Landin, Abi Gallardo, Deyvi Lomeli and colleagues, with an educational javi from [employer]. Review of Systems Const Denies fatigue, Denies fever(s) and Denies headache(s) ENT Denies dysphagia, Denies dizziness, Denies headache(s), Denies neck pain, Denies odynophagia and Denies sore throat Card Denies chest pain, Denies palpitations and Denies dyspnea Resp Denies cough and Denies dyspnea GI Denies abdominal pain, Denies constipation, Denies dysphagia, Denies diarrhea, Denies nausea, Denies odynophagia and Denies vomiting Denies difficulty voiding, Denies nocturia and Denies dysuria Musc Denies neck pain Skin/Breast Denies rash Neuro Denies dizziness and Denies headache(s) Endo Denies fatigue and Denies palpitations Physical exam (Primary Care) Vital Signs: Last Vital Signs Pulse 94 02/19/23 12:34 BP 100/60 02/19/23 12:34 Pulse Ox 98 02/19/23 12:34 Oxygen Delivery Method Room Air 02/19/23 12:34 BMI result Body Mass Index 25.4 Tobacco/Smoking Status: Tobacco use Status Tobacco use date assessed 02/19/23 02/19/23 12:41 Patient Tobacco Use Status Never used Tobacco 02/19/23 12:41 e-Cigarette/Vaping Use Never Used 02/19/23 12:41 PHQ-9: PHQ-9 Score PHQ-9: Total score 0 02/19/23 12:41 Depression Screening Interpretation: Negative Thrive Assessment: Date of Thrive Assessment Date Thrive assessed 02/19/23 02/19/23 12:41 Currently or been in a relationship where the following occur: no concerns reported Const General: no acute distress and alert HENMT Other: The superficial laceration over her occipital scalp area appears well-healed Head: No scalp tenderness Neck Neck: Yes no lymphadenopathy and Yes supple Resp Auscultation: clear to auscultation bilaterally, no rales and no wheezes Cardio Rate: regular rate Rhythm: regular rhythm Heart sounds: no murmurs GI Palpation (GI): Soft to palpation, nontender and No hepatosplenomegaly present Extrem General: Yes no clubbing, cyanosis or edema Assessment and Plan Assessment & Plan (1) Status post fall: Code(s): Z91.81 - History of falling Plan: Patient has Hx of frequent falls due to gait instability Have reinforced fall precautions to her longterm staff (2) Occipital scalp laceration: Code(s): S01.01XA - Laceration without foreign body of scalp, initial encounter Qualifiers: Encounter type: sequela Qualified Code(s): S01.01XS - Laceration without foreign body of scalp, sequela Plan: Injury was superficial and after examination by ER staff, was determined to NOT require wound closure Her occipital scalp wound currently appears completely healed with no other issues (3) Epilepsy: Code(s): G40.909 - Epilepsy, unspecified, not intractable, without status epilepticus Qualifiers: Epilepsy type: unspecified Intractability: not intractable Status epilepticus: without status epilepticus Qualified Code(s): G40.909 - Epilepsy, unspecified, not intractable, without status epilepticus Plan: No seizures recently Continue Vimpat 100 mg BID, Lamotrigine 200 mg BID, Phenobarbital 97.2 mg Q HS and Fycompa 2 mg Q HS Follow up with neurology as scheduled (4) Chronic static encephalopathy: Code(s): G93.49 - Other encephalopathy Plan: Patient currently resides in a longterm and has assistance with most of her ADLs and medication management (5) Obsessive compulsive disorder: Code(s): F42.9 - Obsessive-compulsive disorder, unspecified Qualifiers: Obsessive-compulsive disorder type: unspecified Qualified Code(s): F42.9 - Obsessive-compulsive disorder, unspecified Plan: Continue Fluoxetine 10 mg QD and Clonazepam 1 mg Q HS Follow up with neurology (Dr. Lovett) as scheduled Plan To return as scheduled on 12/23/2023 for her annual physical examination with her PCP Coding Level of Care Code Est Pt Level 3 (84210) Diagnoses Status post fall Z91.81 Laceration of occipital scalp, sequela S01.01XS Encounter type: sequela Nonintractable epilepsy without status epilepticus, unspecified epilepsy type G40.909 Epilepsy type: unspecified Intractability: not intractable Status epilepticus: without status epilepticus Chronic static encephalopathy G93.49 Obsessive-compulsive disorder, unspecified type F42.9 Obsessive-compulsive disorder type: unspecified
== END 2023-02-19 13:10 | disposition home or self-care (01) ==
PROVIDERS: PCP Internal Medicine; Visit Provider Internal Medicine
DX: Z91.81 History of falling (principal); S01.01XS Laceration without foreign body of scalp, sequela; G40.909 Epilepsy, unspecified, not intractable, without status epilepticus; G93.49 Other encephalopathy; F42.9 Obsessive-compulsive disorder, unspecified
CPT/HCPCS: 99213

== ENCOUNTER 2023-04-01 08:05 | Outpatient (AMB) | payer MEDICARE, MEDICAID, SELFPAY ==
--- NOTE | 2023-04-01 08:08 | A.OFFPC_ITS ---
Vital Signs 04/01/23 08:09 Height 4 ft 8 in Weight 111 lb BMI 24.9 BP 122/80 Blood Pressure Location Lt brachial Position Sitting Intake Visit Reasons: [facility]/03-19/ Hit head Intake Note: Patient here for [facility] ED follow up 03/19 Hit Head Commercial Stripper Required: No Accompanied by: Staff Allergies No Known Allergies Allergy (Verified 04/01/23 08:22) Medication List - Last Reconciled 04/01/23 by Mago Baker MD clonazepam 1 mg PO BEDTIME diaper,brief,adult,disposable As directed erythromycin 0.5 inches ophthalmic (eye) QID fluoxetine 10 mg PO QAM Gait belt As directed lacosamide (Vimpat) 100 mg PO BID lactulose 20 grams (30 mL) PO ONCE lamotrigine 200 mg PO BID miscellaneous medical supply HOSPITAL BED WITH MATTRESS perampanel 2 mg PO BEDTIME phenobarbital 97.2 mg PO BEDTIME polyethylene glycol 3350 (Miralax) 17 grams PO DAILY PRN 30 days Tobacco use date assessed: 02/19/23 Dental Screening Dental Screen Date: 04/01/23 Did you have a dental visit in the last 12 months?: No Did you have a dental problem in the last 6 months where you did not have access to dental care?: No Was dental information given to patient?: Patient declined HPI HPI Comments History of Present Illness Details This is a 58-year-old female with seizures, chronic idiopathic constipation and anxiety that comes accompanied by staff member from the home that she lives has hospital discharge follow-up due to close head injury with discharge date 03/19/2023. She was seen at [facility] after hitting herself in the head in the right and left side. She is mentally challenged and is used to hit her head. No loss of consciousness. She has her usual self. Seizures well control with phenobarbital and Vimpat. Constipation stable with lactulose as needed. Anxiety stable with clonazepam. No head tenderness on palpation. [facility] Medical History (Updated 04/01/23 @ 08:30 by Mago Baker MD) Obsessive compulsive disorder Chronic static encephalopathy Epilepsy Resides in intermediate manager care facility COVID-19 vaccine series completed Seizures Anxiety Chronic idiopathic constipation Difficult bowel movements Screening for breast cancer Screening for colon cancer Screening for diabetes mellitus Screening for hyperlipidemia Incontinence of urine in female Conjunctivitis Mentally challenged Status epilepticus Surgical History H/O tooth extraction Family History Father No problems noted. Mother Diabetes Cancer Social History Household Members Other:: resides in alf Housing: Other Housing Other:: alf Are you a primary home care physical therapist to a significant other at home: No Do you presently have visiting nurse or other home services: Yes (as above noted) Alcohol intake: never Patient Tobacco Use Status: Never used Tobacco e-Cigarette/Vaping Use: Never Used Second Hand Smoke Exposure: No service: No Current occupational status: disabled Cognitive needs: No Hearing needs: No Vision needs: No Questionnaire Thrive Questionnaire Date Thrive assessed: 02/19/23 JAMES-7 AMB Questionnaire JAMES-7 Date JAMES - 7 assessed: 02/19/23 Source: Developed by Drs. Yusuf Landin, Abi Gallardo, Deyvi Lomeli and colleagues, with an educational javi from [employer]. Review of Systems Const All systems reviewed & are unremarkable except as noted in HPI and below Eyes Reports no additional complaints, Denies change in vision and Denies other visual disturbances Card Denies chest pain at rest, Denies chest pain with activity, Denies edema, Denies irregular heart rhythm, Denies claudication, Denies dyspnea, Denies dyspnea on exertion, Denies orthopnea, Denies paroxysmal nocturnal dyspnea and Denies slow heart rate Resp Denies cough, Denies dyspnea and Denies dyspnea on exertion GI Denies abdominal pain, Denies change in bowel habits, Denies excessive flatus, Denies nausea and Denies vomiting Denies urinary incontinence, Denies urinary hesitancy and Denies urinary urgency Musc Denies abnormal gait, Denies atrophy, Denies deformity and Denies limited range of motion Skin/Breast Denies bleeding lesions, Denies changing lesions and Denies rash Neuro Denies abnormal gait, Denies behavioral changes and Denies lack of coordination Psych Denies behavioral changes Physical exam (Primary Care) Vital Signs: Last Vital Signs BP 122/80 04/01/23 08:09 BMI result Body Mass Index 24.9 Tobacco/Smoking Status: Tobacco use Status Tobacco use date assessed 02/19/23 04/01/23 08:14 Patient Tobacco Use Status Never used Tobacco 04/01/23 08:14 e-Cigarette/Vaping Use Never Used 04/01/23 08:14 Thrive Assessment: Date of Thrive Assessment Date Thrive assessed 02/19/23 04/01/23 08:14 Eyes General: appearance normal, both eyes and all related structures Eyelids: Yes eyelids normal Conjunctivae: conjunctivae normal Neck Neck: Yes normal visual inspection and Yes supple Resp Effort & Inspection: normal respiratory effort Auscultation: clear to auscultation bilaterally Cardio Jugular venous distension: no JVD Rate: regular rate Rhythm: regular rhythm Heart sounds: S1 normal heart sound present and S2 normal heart sound present Neuro General: no focal motor deficits Extrem General: Yes full ROM Assessment and Plan Assessment & Plan (1) Hospital discharge follow-up: Code(s): Z09 - Encounter for follow-up examination after completed treatment for conditions other than malignant neoplasm Plan: Discharge date 03/19/2023 due to closed head injury. No head tenderness on palpation at the moment. No loss of consciousness. (2) Head injury: Code(s): S09.90XA - Unspecified injury of head, initial encounter Qualifiers: Encounter type: subsequent encounter Qualified Code(s): S09.90XD - Unspecified injury of head, subsequent encounter Plan: No head tenderness. No loss of consciousness. Been her usual self. (3) Seizures: Comment: last seizure 06/26/21-full body tremors-lasted 10 seconds Code(s): R56.9 - Unspecified convulsions Plan: Continue phenobarbital and Vimpat. (4) Anxiety: Code(s): F41.9 - Anxiety disorder, unspecified Plan: Continue clonazepam. (5) Chronic idiopathic constipation: Code(s): K59.04 - Chronic idiopathic constipation Plan: Continue MiraLax and lactulose as needed for constipation. Coding Level of Care Code TCM Mod MDM <= 14 Days Diagnoses Hospital discharge follow-up Z09 Injury of head, subsequent encounter S09.90XD Encounter type: subsequent encounter Seizures R56.9 Anxiety F41.9 Chronic idiopathic constipation K59.04 Time Spent (min) 22
[2023-04-01 08:09] VITALS: BP 122/80; BMI 24.9
== END 2023-04-01 08:29 | disposition home or self-care (01) ==
PROVIDERS: PCP Internal Medicine; Visit Provider Internal Medicine
DX: S09.90XA Unspecified injury of head, initial encounter (principal); R56.9 Unspecified convulsions; F41.9 Anxiety disorder, unspecified; K59.04 Chronic idiopathic constipation
CPT/HCPCS: 99214

== ENCOUNTER 2023-04-29 13:12 | Outpatient (AMB) | payer MEDICARE, MEDICAID, SELFPAY ==
--- NOTE | 2023-04-29 13:12 | A.OFFPC_ITS ---
Intake Visit Reasons: ED Follow up/wing Head [phone] Wind Energy Mechanic Required: No Accompanied by: caregiver Allergies No Known Allergies Allergy (Verified 04/29/23 13:54) Medication List - Last Reconciled 04/29/23 by Mago Baker MD clonazepam 1 mg PO BEDTIME diaper,brief,adult,disposable As directed fluoxetine 10 mg PO QAM Gait belt As directed lacosamide (Vimpat) 100 mg PO BID lamotrigine 200 mg PO BID miscellaneous medical supply HOSPITAL BED WITH MATTRESS perampanel 2 mg PO BEDTIME phenobarbital 97.2 mg PO BEDTIME polyethylene glycol 3350 (Miralax) 17 grams PO DAILY PRN 30 days Tobacco use date assessed: 04/29/23 Dental Screening Dental Screen Date: 04/29/23 Did you have a dental visit in the last 12 months?: No Did you have a dental problem in the last 6 months where you did not have access to dental care?: No Was dental information given to patient?: No HPI HPI Comments History of Present Illness Details This is a 58-year-old female with seizures, chronic idiopathic constipation, developmental delay and anxiety that has tele health visit by video for hospital discharge follow-up with discharge date 04/24/2023 from [facility] due to a fall in which she hit her head but did not loss any consciousness. Had a head CT which was normal as per historian which is a staff member. Does not has any new neurological deficit. Seizures stable and has not had 1 in over a month and this is follow by Neurology. Constipation well controlled with medications. Anxiety also stable with benzodiazepines and follow by Psychiatry. [facility] Medical History (Updated 04/29/23 @ 14:17 by Mago Baker MD) Obsessive compulsive disorder Chronic static encephalopathy Epilepsy Resides in detention care facility COVID-19 vaccine series completed Seizures Anxiety Chronic idiopathic constipation Difficult bowel movements Screening for breast cancer Screening for colon cancer Screening for diabetes mellitus Screening for hyperlipidemia Incontinence of urine in female Conjunctivitis Mentally challenged Status epilepticus Surgical History H/O tooth extraction Family History Father No problems noted. Mother Diabetes Cancer Social History Household Members Other:: resides in [facility] Housing: Other Housing Other:: [facility] Are you a primary care consultant to a significant other at home: No Do you presently have visiting nurse or other home services: Yes (as above noted) Alcohol intake: never Patient Tobacco Use Status: Never used Tobacco e-Cigarette/Vaping Use: Never Used Second Hand Smoke Exposure: No service: No Current occupational status: disabled Cognitive needs: No Hearing needs: No Vision needs: No Questionnaire PHQ-9 Over the last 2 weeks, how often have you been bothered by any of the following problems? 1. Little interest or pleasure in doing things: not at all 2. Feeling down, depressed, or hopeless: not at all 3. Trouble falling or staying asleep, or sleeping too much: not at all 4. Feeling tired or having little energy: not at all 5. Poor appetite or overeating: not at all 6. Feeling bad about yourself - or that you are a failure or have let yourself or your family down: not at all 7. Trouble concentrating on things, such as reading the newspaper or watching television: not at all 8. Moving or speaking so slowly that other people could have noticed. Or the opposite - being so fidgety or restless that you have been moving around a lot more than usual: not at all 9. Thoughts that you would be better off or of hurting yourself in some way: not at all Total score: 0 Depression Screening Interpretation: Negative Depression Screening Done: Yes 25464 - PHQ-9 Billing: Yes Source: Developed by Drs. Yusuf Landin, Abi Gallardo, Deyvi Lomeli and colleagues, with an educational javi from [employer]. Thrive Questionnaire Date Thrive assessed: 04/29/23 I am a: Patient What is your living situation today?: I have a steady place to live Within the past 12 months, did the food you bought not last and you didn't have the money to get more?: Never true Within the past 12 months, did you worry whether your food would run out before you got money to buy more?: Never true Do you have trouble paying for medicines?: No Do you have trouble getting transportation to medical appointments?: No Do you have trouble paying your heating and electricity bill?: No Do you have trouble taking care of your child, family member or friend?: No Do you have trouble with day-to-day activities such as bathing, preparing meals, shopping, managing finances, etc.?: No Are you currently unemployed and looking for a job?: No Are you interested in more education?: No Please select the resources that you would like help with: None AUDIT C Alcohol Use Questionnaire (AUDIT-C) 1. How often do you have a drink containing alcohol?: Never Total Score: 0 Score Reviewed/Action Taken: Yes JAMES-7 AMB Questionnaire JAMES-7 Date JAMES - 7 assessed: 04/29/23 Feeling nervous, anxious, or on edge: 0 = Not at all Not being able to stop or control worryin = Not at all Worrying too much about different things: 0 = Not at all Trouble relaxin = Not at all Being so restless that it is hard to sit still: 0 = Not at all Becoming easily annoyed or irritable: 0 = Not at all Feeling afraid as if something awful might happen: 0 = Not at all Total JAMES-7 score (0-4 normal; 5-9 mild; 10-14 moderate; 15-21 severe): 0 Source: Developed by Drs. Yusuf Landin, Abi Gallardo, Deyvi Lomeli and colleagues, with an educational javi from [employer]. JAMES-7 Assessment Billing JAMES-7 Assessment Tool: JAMES-7 Assessment 13385 Review of Systems Const All systems reviewed & are unremarkable except as noted in HPI and below Eyes Reports no additional complaints, Denies change in vision and Denies other visual disturbances Card Denies chest pain at rest, Denies chest pain with activity, Denies edema, Denies irregular heart rhythm, Denies claudication, Denies dyspnea, Denies dyspnea on exertion, Denies orthopnea, Denies paroxysmal nocturnal dyspnea and Denies slow heart rate Resp Denies cough, Denies dyspnea and Denies dyspnea on exertion GI Denies abdominal pain, Denies change in bowel habits, Denies excessive flatus, Denies nausea and Denies vomiting Denies urinary incontinence, Denies urinary hesitancy and Denies urinary urgency Musc Denies abnormal gait, Denies atrophy, Denies deformity and Denies limited range of motion Skin/Breast Denies bleeding lesions, Denies changing lesions and Denies rash Neuro Denies abnormal gait, Denies behavioral changes and Denies lack of coordination Psych Denies behavioral changes Physical exam (Primary Care) Tobacco/Smoking Status: Tobacco use Status Tobacco use date assessed 04/29/23 04/29/23 13:15 Patient Tobacco Use Status Never used Tobacco 04/29/23 13:15 e-Cigarette/Vaping Use Never Used 04/29/23 13:15 PHQ-9: PHQ-9 Score PHQ-9: Total score 0 04/29/23 13:59 Depression Screening Interpretation: Negative Thrive Assessment: Date of Thrive Assessment Date Thrive assessed 04/29/23 04/29/23 13:15 Const General: comfortable, alert and Physically active Telehealth Telehealth Location of provider rendering services: practice address Location of patient: address on file Patient Identification confirmed using: Name, : Yes Telehealth method: video (Iphone) Patient verbally consented to treatment: Yes Patient verbally consented to billing insurance company: Yes Patient informed of any privacy concerns related to visit: Yes Minutes spent on Phone/Video with Pt.: 15 Assessment and Plan Assessment & Plan (1) Hospital discharge follow-up: Code(s): Z09 - Encounter for follow-up examination after completed treatment for conditions other than malignant neoplasm Plan: Discharge date generally 03/03/2024 due to fall hitting her head. Head CT done with no no abnormality. Doing well. (2) Seizures: Comment: last seizure 06/26/21-full body tremors-lasted 10 seconds Code(s): R56.9 - Unspecified convulsions Plan: Continue phenobarbital and Vimpat. Follow-up with Neurology. (3) Chronic idiopathic constipation: Code(s): K59.04 - Chronic idiopathic constipation Plan: Continue MiraLax as needed. (4) Anxiety: Code(s): F41.9 - Anxiety disorder, unspecified Plan: Continue benzodiazepines as needed. Follow-up with psychiatry. Coding Level of Care Code Tele Est Pt Level 4 (98260) Diagnoses Hospital discharge follow-up Z09 Seizures R56.9 Chronic idiopathic constipation K59.04 Anxiety F41.9 Additional Codes JAMES-7 Assessment Billing - JAMES-7 Assessment Tool: JAMES-7 Assessment 29259 ([id number]) Time Spent (min) 15
== END 2023-04-29 15:00 | disposition home or self-care (01) ==
LOC: HO.HMGH 13:12
PROVIDERS: PCP Internal Medicine; Visit Provider Internal Medicine
DX: R56.9 Unspecified convulsions (principal); K59.04 Chronic idiopathic constipation; F41.9 Anxiety disorder, unspecified; Z09 Encounter for follow-up examination after completed treatment for conditions other than malignant neoplasm
CPT/HCPCS: 99214

== ENCOUNTER 2023-07-30 09:56 | Outpatient (AMB) | payer MEDICARE, MEDICAID, SELFPAY ==
--- NOTE | 2023-07-30 09:59 | AM.OFFWIN_ITS ---
Intake Vital Signs 3 07/30/23 10:01 Height 4 ft 8 in Weight 112 lb BMI 25.1 BP 122/74 Blood Pressure Location Lt brachial Position Sitting Pulse 76 Pulse Source Pulse Oximeter Pulse Oximetry (%) 98 Oxygen Delivery Method Room Air Intake Visit Reasons: EP ?Bite LT arm Patient Tobacco Use Status: Never used Tobacco Allergies No Known Allergies Allergy (Verified 07/30/23 10:02) Medication List - Last Reconciled 07/30/23 by Karina Lovett MD clonazepam 1 mg PO BEDTIME diaper,brief,adult,disposable As directed fluoxetine 10 mg PO QAM Gait belt As directed lacosamide (Vimpat) 100 mg PO BID lamotrigine 200 mg PO BID miscellaneous medical supply HOSPITAL BED WITH MATTRESS perampanel 2 mg PO BEDTIME phenobarbital 97.2 mg PO BEDTIME polyethylene glycol 3350 (Miralax) 17 grams PO DAILY PRN 30 days Do you need a note to return to daycare/school/sports/work: Yes HPI EP ?Bite LT arm 2 HPI0 Details Patient is 58-year-old female who lives in a long term , intellectually limited Came in with a children's zoo caretaker, staff has noticed redness on her left forearm anteriorly on Friday They feel that it has gotten slightly worse. There is no fever no chills no nausea vomiting On examination left forearm anterior aspect has patch of erythema There is no fluctuation there is no indication of any pus Staff has not noted any ticks Patient do go out sometimes with staff I am treating her with Augmentin b.i.d. for 7 days Instructions given to staff to keep an eye on the area if it gets worse they should come back. [facility] Medical History Obsessive compulsive disorder Chronic static encephalopathy Epilepsy Resides in bed bug exterminator care facility COVID-19 vaccine series completed Seizures Anxiety Chronic idiopathic constipation Difficult bowel movements Screening for breast cancer Screening for colon cancer Screening for diabetes mellitus Screening for hyperlipidemia Incontinence of urine in female Conjunctivitis Mentally challenged Status epilepticus Surgical History H/O tooth extraction Family History Father No problems noted. Mother Diabetes Cancer Social History Household Members Other:: resides in long term Housing: Other Housing Other:: long term Are you a primary youth care worker to a significant other at home: No Do you presently have visiting nurse or other home services: Yes (as above noted) Alcohol intake: never Patient Tobacco Use Status: Never used Tobacco e-Cigarette/Vaping Use: Never Used Second Hand Smoke Exposure: No service: No Current occupational status: disabled Cognitive needs: No Hearing needs: No Vision needs: No Review of Systems Const All systems reviewed & are unremarkable except as noted in HPI and below Physical Exam Vital Signs: Last Vital Signs Pulse 76 07/30/23 10:01 BP 122/74 07/30/23 10:01 Pulse Ox 98 07/30/23 10:01 Oxygen Delivery Method Room Air 07/30/23 10:01 BMI result Body Mass Index 25.1 Const General: no acute distress Resp Effort & Inspection: normal respiratory effort and able to speak in complete sentences Auscultation: clear to auscultation bilaterally Cardio Other: S1 S2 Extrem Elbow/forearm/wrist images: 2 1. Site of erythematous patch size of 5 in x 3 in Psych Mental Status: mental status grossly normal Assessment & Plan Assessment & Plan (1) Cellulitis of arm, left: Code(s): L03.114 - Cellulitis of left upper limb Plan Patient is 58-year-old female who lives in a long term , intellectually limited Came in with a children's zoo caretaker, staff has noticed redness on her left forearm anteriorly on Friday They feel that it has gotten slightly worse. There is no fever no chills no nausea vomiting On examination left forearm anterior aspect has patch of erythema There is no fluctuation there is no indication of any pus Staff has not noted any ticks Patient do go out sometimes with staff I am treating her with Augmentin b.i.d. for 7 days Instructions given to staff to keep an eye on the area if it gets worse they should come back. Medications: New 2 amoxicillin-pot clavulanate 875-125 mg 1 tab PO BID 14 tabs 0RF 7 days Coding Level of Care Code Est Pt Level 3 (88309) Diagnoses Cellulitis of arm, left L03.114
[2023-07-30 10:01] VITALS: BP 122/74; PULSE 76; O2SAT 98; BMI 25.1
== END 2023-07-30 10:47 | disposition home or self-care (01) ==
PROVIDERS: PCP Internal Medicine; Visit Provider Internal Medicine
DX: L03.114 Cellulitis of left upper limb (principal)
CPT/HCPCS: 99213

== ENCOUNTER 2023-09-10 15:22 | Outpatient (AMB) | payer MEDICARE, MEDICAID, SELFPAY ==
[2023-09-10 15:25] VITALS: BP 130/72; BMI 24.2
--- NOTE | 2023-09-10 15:25 | A.OFFPC_ITS ---
Vital Signs 09/10/23 15:25 Height 4 ft 8 in Weight 108 lb BMI 24.2 BP 130/72 Blood Pressure Location Lt brachial Position Sitting Intake Visit Reasons: Hit head Food Expeditor Required: No Accompanied by: staff Allergies No Known Allergies Allergy (Verified 09/10/23 15:38) Medication List - Last Reconciled 09/10/23 by Mago Baker MD clonazepam 1 mg PO BEDTIME diaper,brief,adult,disposable As directed fluoxetine 10 mg PO QAM Gait belt As directed lacosamide (Vimpat) 100 mg PO BID lamotrigine 200 mg PO BID miscellaneous medical supply HOSPITAL BED WITH MATTRESS perampanel 2 mg PO BEDTIME phenobarbital 97.2 mg PO BEDTIME polyethylene glycol 3350 (Miralax) 17 grams PO DAILY PRN 30 days Tobacco use date assessed: 04/29/23 Dental Screening Dental Screen Date: 04/29/23 HPI HPI Comments History of Present Illness Details This is a 58-year-old female with seizures, chronic idiopathic constipation, anxiety and mixed hyperlipidemia that comes today accompanied by staff member from the home that she lives for follow-up on her conditions. She has had 3 seizures this month and this is follow by neurologist. Constipation had seen stable with MiraLax as needed. Anxiety well controlled with SSRIs and this is follow by Psychiatry. She did had elevated cholesterol and triglycerides in her last lipid panel and this will be repeated. Denies any chest pain or shortness on breath. No acute complaints. [facility] Medical History (Updated 09/10/23 @ 16:59 by Maog Baker MD) Obsessive compulsive disorder Chronic static encephalopathy Epilepsy Resides in [facility] care facility COVID-19 vaccine series completed Seizures Anxiety Chronic idiopathic constipation Difficult bowel movements Screening for breast cancer Screening for colon cancer Screening for diabetes mellitus Screening for hyperlipidemia Incontinence of urine in female Conjunctivitis Mentally challenged Status epilepticus Surgical History H/O tooth extraction Family History Father No problems noted. Mother Diabetes Cancer Social History Household Members Other:: resides in shelter Housing: Other Housing Other:: shelter Are you a primary career technical education teacher to a significant other at home: No Do you presently have visiting nurse or other home services: Yes (as above noted) Alcohol intake: never Patient Tobacco Use Status: Never used Tobacco e-Cigarette/Vaping Use: Never Used Second Hand Smoke Exposure: No service: No Current occupational status: disabled Cognitive needs: No Hearing needs: No Vision needs: No Questionnaire Thrive Questionnaire Date Thrive assessed: 04/29/23 JAMES-7 AMB Questionnaire JAMES-7 Date JAMES - 7 assessed: 04/29/23 Source: Developed by Drs. Yusuf Landin, Abi Gallardo, Deyvi Lomeli and colleagues, with an educational javi from [employer]. Review of Systems Const All systems reviewed & are unremarkable except as noted in HPI and below Card Denies chest pain at rest, Denies chest pain with activity, Denies edema, Denies irregular heart rhythm, Denies claudication, Denies dyspnea, Denies dyspnea on exertion, Denies orthopnea, Denies paroxysmal nocturnal dyspnea and Denies slow heart rate Resp Denies cough, Denies dyspnea and Denies dyspnea on exertion Physical exam (Primary Care) Vital Signs: Last Vital Signs BP 130/72 09/10/23 15:25 BMI result Body Mass Index 24.2 Tobacco/Smoking Status: Tobacco use Status Tobacco use date assessed 04/29/23 09/10/23 15:35 Patient Tobacco Use Status Never used Tobacco 09/10/23 15:35 e-Cigarette/Vaping Use Never Used 09/10/23 15:35 Thrive Assessment: Date of Thrive Assessment Date Thrive assessed 04/29/23 09/10/23 15:35 Resp Effort & Inspection: normal respiratory effort Auscultation: clear to auscultation bilaterally Cardio Jugular venous distension: no JVD Rate: regular rate Rhythm: regular rhythm Heart sounds: S1 normal heart sound present and S2 normal heart sound present Extrem General: Yes full ROM Assessment and Plan Assessment & Plan (1) Seizures: Comment: last seizure 06/26/21-full body tremors-lasted 10 seconds Code(s): R56.9 - Unspecified convulsions Plan: Continue phenobarbital. Follow-up with Neurology. (2) Anxiety: Code(s): F41.9 - Anxiety disorder, unspecified Plan: Continue sertraline. Follow-up with psychiatry. (3) Chronic idiopathic constipation: Code(s): K59.04 - Chronic idiopathic constipation Plan: Continue MiraLax as needed. (4) Mixed hyperlipidemia: Code(s): E78.2 - Mixed hyperlipidemia Plan: Repeat lipid panel. Orders: Orders Phenobarbital 4 Months G40.909 - Epilepsy, unspecified, not intractable, without status epilepticus Complete Blood Count Auto Diff 4 Months G40.909 - Epilepsy, unspecified, not intractable, without status epilepticus Lipid Panel 4 Months E78.5 - Hyperlipidemia, unspecified Comprehensive [place]. Panel Fast 4 Months G40.909 - Epilepsy, unspecified, not intractable, without status epilepticus Coding Level of Care Code Est Pt Level 4 (39075) Complex EM visit Add On G2211 Diagnoses Seizures R56.9 Anxiety F41.9 Chronic idiopathic constipation K59.04 Mixed hyperlipidemia E78.2 Time Spent (min) 23
== END 2023-09-10 15:51 | disposition home or self-care (01) ==
PROVIDERS: PCP Internal Medicine; Visit Provider Internal Medicine
DX: R56.9 Unspecified convulsions (principal); F41.9 Anxiety disorder, unspecified; K59.04 Chronic idiopathic constipation; E78.2 Mixed hyperlipidemia
CPT/HCPCS: 99214; G2211

== ENCOUNTER 2023-11-11 16:32 | Outpatient (AMB) | payer MEDICARE, MEDICAID, SELFPAY ==
--- NOTE | 2023-11-11 16:43 | MHC.PC.OV ---
Vital Signs 11/11/23 16:46 Height 4 ft 8 in Weight 104 lb BMI 23.3 BP 120/72 Blood Pressure Location Rt brachial Position Sitting Intake Visit Reasons: weight loss Intake Note: Patient here for weight loss, loss of appetite, sleeping more, bug bit right arm Planer Off Bearer Required: No Accompanied by: staff Allergies No Known Allergies Allergy (Verified 11/11/23 17:00) Medication List - Last Reconciled 11/11/23 by Mago Baker MD clonazepam 1 mg PO BEDTIME diaper,brief,adult,disposable As directed diphenhydramine HCl (Banophen) 25 mg PO TID PRN fluoxetine 10 mg PO QAM Gait belt As directed lacosamide (Vimpat) 100 mg PO BID lactulose 10 grams (15 mL) PO BID PRN 10 days lamotrigine 200 mg PO BID levetiracetam 500 mg PO BID miscellaneous medical supply HOSPITAL BED WITH MATTRESS phenobarbital 97.2 mg PO BEDTIME polyethylene glycol 3350 (Miralax) 17 grams PO DAILY PRN 30 days Tobacco use date assessed: 04/29/23 Dental Screening Dental Screen Date: 04/29/23 HPI HPI Comments History of Present Illness Details This is a 58-year-old female with intellectual disability that comes today complaining of weight loss that started for about a month or 2 accompanied by daytime sleepiness and fatigue and tiredness. Has a decrease in appetite. No abdominal pain. No change in bowel or bladder habits. No fever. She is accompanied by staff member today which is the main historian due to patient not able to answer any questions. Has not had a seizure in over 2 weeks and this is follow by Neurology. Has chronic idiopathic constipation and has not had a bowel movement in 2 days and I did change MiraLax from p.r.n. to daily. Also has anxiety stable with SSRIs and this is follow by Psychiatry. [facility] Medical History (Updated 11/11/23 @ 17:13 by Mago Baker MD) Obsessive compulsive disorder Chronic static encephalopathy Epilepsy Resides in group home care facility COVID-19 vaccine series completed Seizures Anxiety Chronic idiopathic constipation Difficult bowel movements Screening for breast cancer Screening for colon cancer Screening for diabetes mellitus Screening for hyperlipidemia Incontinence of urine in female Conjunctivitis Mentally challenged Status epilepticus Surgical History H/O tooth extraction Family History Father No problems noted. Mother Diabetes Cancer Social History Household Members Other:: resides in intermediate Housing: Other Housing Other:: intermediate Are you a primary health care facilities inspector to a significant other at home: No Do you presently have visiting nurse or other home services: Yes (as above noted) Alcohol intake: never Patient Tobacco Use Status: Never used Tobacco e-Cigarette/Vaping Use: Never Used Second Hand Smoke Exposure: No service: No Current occupational status: disabled Cognitive needs: No Hearing needs: No Vision needs: No Questionnaire Thrive Questionnaire Date Thrive assessed: 04/29/23 JAMES-7 AMB Questionnaire JAMES-7 Date JAMES - 7 assessed: 04/29/23 Source: Developed by Drs. Yusuf Landin, Abi Gallardo, Deyvi Lomeli and colleagues, with an educational javi from [employer]. Review of Systems Const All systems reviewed & are unremarkable except as noted in HPI and below Reports daytime sleepiness, Reports fatigue and Reports weight loss Card Denies chest pain at rest, Denies chest pain with activity, Denies edema, Denies irregular heart rhythm, Denies claudication, Denies dyspnea, Denies dyspnea on exertion, Denies orthopnea, Denies paroxysmal nocturnal dyspnea and Denies slow heart rate Resp Denies cough, Denies dyspnea and Denies dyspnea on exertion GI Denies abdominal pain, Denies change in bowel habits, Denies excessive flatus, Denies nausea and Denies vomiting Denies urinary incontinence, Denies urinary hesitancy and Denies urinary urgency Musc Denies atrophy, Denies deformity and Denies limited range of motion Skin/Breast Denies bleeding lesions, Denies changing lesions and Denies rash Endo Reports fatigue Physical exam (Primary Care) Vital Signs: Last Vital Signs BP 120/72 11/11/23 16:46 BMI result Body Mass Index 23.3 Tobacco/Smoking Status: Tobacco use Status Tobacco use date assessed 04/29/23 11/11/23 16:44 Patient Tobacco Use Status Never used Tobacco 11/11/23 16:44 e-Cigarette/Vaping Use Never Used 11/11/23 16:44 Thrive Assessment: Date of Thrive Assessment Date Thrive assessed 04/29/23 11/11/23 16:44 Resp Effort & Inspection: normal respiratory effort Auscultation: clear to auscultation bilaterally Cardio Jugular venous distension: no JVD Rate: regular rate Rhythm: regular rhythm Heart sounds: S1 normal heart sound present and S2 normal heart sound present GI Inspection: Yes normal to inspection Palpation (GI): Soft to palpation and nontender Auscultation: normal bowel sounds Assessment and Plan Assessment & Plan (1) Weight loss: Code(s): R63.4 - Abnormal weight loss Plan: Labs ordered. (2) Seizures: Comment: last seizure 06/26/21-full body tremors-lasted 10 seconds Code(s): R56.9 - Unspecified convulsions Plan: Continue phenobarbital, Keppra and Lamictal. Follow-up with Neurology. (3) Chronic idiopathic constipation: Code(s): K59.04 - Chronic idiopathic constipation Plan: Change MiraLax from as needed to daily. (4) Anxiety: Code(s): F41.9 - Anxiety disorder, unspecified Plan: Continue SSRIs. Follow-up with psychiatry. Orders: Orders Vitamin D 25-OH Total Today E55.9 - Vitamin D deficiency, unspecified Vitamin B12 and Folate Today E53.8 - Deficiency of other specified B group vitamins Lipid Panel Today E78.5 - Hyperlipidemia, unspecified Complete Blood Count Auto Diff Today R63.4 - Abnormal weight loss Comprehensive [place]. Panel Fast Today R63.4 - Abnormal weight loss Thyroid Stimulating Hormone Today R63.4 - Abnormal weight loss Lamotrigine Lamictal Today R56.9 - Unspecified convulsions Levetiracetam Keppra Today R56.9 - Unspecified convulsions Phenobarbital Today R56.9 - Unspecified convulsions Coding Level of Care Code Est Pt Level 4 (65361) Complex EM visit Add On G2211 Diagnoses Weight loss R63.4 Seizures R56.9 Chronic idiopathic constipation K59.04 Anxiety F41.9 Time Spent (min) 24
[2023-11-11 16:46] VITALS: BP 120/72; BMI 23.3
== END 2023-11-11 17:10 | disposition home or self-care (01) ==
PROVIDERS: PCP Internal Medicine; Visit Provider Internal Medicine
DX: R63.4 Abnormal weight loss (principal); R56.9 Unspecified convulsions; K59.04 Chronic idiopathic constipation; F41.9 Anxiety disorder, unspecified
CPT/HCPCS: 99214; G2211

== ENCOUNTER 2023-11-14 10:46 | Outpatient (REF) | payer MEDICARE, MEDICAID, SELFPAY | END 2023-11-14 10:47 | disposition home or self-care (01) | LOC: HO.LAB 10:46 | PROVIDERS: PCP Internal Medicine; Visit Provider Internal Medicine | DX: Z13.89 Encounter for screening for other disorder (principal) ==

== ENCOUNTER 2023-11-17 13:26 | Outpatient (REF) | payer MEDICARE, MEDICAID, SELFPAY ==
[2023-11-17 13:44] LABS: MANUAL DIFF FLAG NO
[2023-11-17 14:27] LABS: Basophils Absolute Auto 0.1 X10*3/uL (0.0-0.2); Basophils Percent Auto 0.8 % (0-2); Eosinophils Absolute Auto 0.1 X10*3/uL (0.0-0.4); Eosinophils Percent Auto 1.7 % (0-4); Hematocrit 40.8 % (37.0-47.0); Hemoglobin 13.8 g/dl (12.0-16.0); Imm Gran Abs Auto 0.02 X10*3/uL (0.00-0.03); Imm Gran Pct Auto 0.3 % (0.0-0.4); Lymphocytes Absolute Auto 3.4 X10*3/uL (1.2-4.9); Lymphocytes Percent Auto 43.2 % (20-40); Mean Corpuscular HGB Conc 33.8 g/dl (31.0-35.0); Mean Corpuscular Hemoglobin 32.2 pg (27.0-33.0); Mean Corpuscular Volume 95.3 fL (80.0-98.0); Mean Platelet Volume 9.9 fL (9.4-12.3); Monocytes Absolute Auto 0.5 X10*3/uL (0.1-1.2); Monocytes Percent Auto 6.3 % (2-11); Neutrophils Absolute Auto 3.7 x10*3/uL (2.0-8.3); Neutrophils Percent Auto 47.7 % (45-73); Platelet Count 313 X10*3/uL (160-400); Red Blood Count 4.28 X10*6/uL (4.20-5.50); Red Cell Distribution Width 11.9 % (11.0-16.0); White Blood Count 7.8 X10*3/uL (4.8-10.8)
[2023-11-17 14:56] LABS: Alanine Aminotransferase 7 U/L (0-31); Albumin Level 4.5 g/dL (3.5-5.0); Alkaline Phosphatase 108 U/L (39-117); Anion Gap 16 (12-20); Aspartate Amino Transferase 20 U/L (5-31); Bilirubin Total 0.3 mg/dL (0.0-1.0); Blood Urea Nitrogen 14 mg/dL (9-16); Calcium 9.9 mg/dL (8.4-10.2); Carbon Dioxide 25 mmol/L (22-29); Chloride 106 mmol/L (96-108); Cholesterol 346 mg/dL (<200); Estimated Glomerular Filt Rate 52; Glucose Fasting 82 mg/dL (60-99); HDL Cholesterol 61 mg/dL (>40); LDL Cholesterol Calculated 261 mg/dL (<100); Sodium 143 mmol/L (135-145); Total Protein 7.6 g/dL (6.5-8.0); Triglycerides 122 mg/dL (<150)
[2023-11-17 15:12] LABS: Thyroid Stimulating Hormone 2.09 uIU/mL (0.32-4.0); Vitamin D 25-OH Total 17.4 ng/mL (>30)
[2023-11-17 15:21] LABS: Folate 11.3 ng/mL (> or = 4.0); Vitamin B12 502 pg/mL (200-900)
[2023-11-19 22:07] LABS: Levetiracetam Keppra 26.5 mcg/mL (6.0-46.0)
[2023-11-20 20:23] LABS: Lamotrigine Lamictal 7.8 mcg/mL (2.5-15.0)
== END 2023-11-17 13:27 | disposition home or self-care (01) ==
LOC: HO.LAB 13:26
PROVIDERS: PCP Internal Medicine; Visit Provider Internal Medicine
DX: Z00.00 Encounter for general adult medical examination without abnormal findings (principal); R56.9 Unspecified convulsions; R63.4 Abnormal weight loss; E55.9 Vitamin D deficiency, unspecified; E53.8 Deficiency of other specified B group vitamins
CPT/HCPCS: 36415; 80053; 80061; 80175; 80177; 80184; 82306; 82607; 82746; 84443; 85025

== ENCOUNTER 2023-12-23 10:06 | Outpatient (AMB) | payer MEDICARE, MEDICAID, SELFPAY ==
--- NOTE | 2023-12-23 10:08 | A.OFFPC_ITS ---
Vital Signs 12/23/23 10:12 Height 4 ft 8 in Weight 106 lb BMI 23.8 BP 122/76 Blood Pressure Location Lt brachial Position Sitting Intake Visit Reasons: pe Intake Note: Patient here for a physical exam Rehab Rn Required: No Accompanied by: staff Allergies No Known Allergies Allergy (Verified 12/23/23 10:24) Medication List - Last Reconciled 12/23/23 by Mago Baker MD atorvastatin 40 mg PO BEDTIME 90 days cholecalciferol (vitamin D3) 50 mcg PO DAILY 90 days clonazepam 1 mg PO BEDTIME diaper,brief,adult,disposable As directed diphenhydramine HCl (Banophen) 25 mg PO TID PRN fluoxetine 10 mg PO QAM Gait belt As directed lacosamide (Vimpat) 100 mg PO BID lactulose 10 grams (15 mL) PO BID PRN 10 days lamotrigine 200 mg PO BID levetiracetam 500 mg PO BID miscellaneous medical supply HOSPITAL BED WITH MATTRESS phenobarbital 97.2 mg PO BEDTIME polyethylene glycol 3350 (Miralax) 17 grams PO DAILY PRN 30 days Tobacco use date assessed: 04/29/23 Dental Screening Dental Screen Date: 12/23/23 Did you have a dental visit in the last 12 months?: No Did you have a dental problem in the last 6 months where you did not have access to dental care?: No Was dental information given to patient?: Patient declined HPI HPI Comments History of Present Illness Details This is a 58-year-old female with seizures that is mentally challenged and accompanied by staff member from the house that she lives in for her physical exam. Has not had a seizure in over a month and is follow by Neurology. 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 Not able to do mammograms or Pap smear. She can not answer any question. Staff members have noticed some and GERD and depression while being home and I will increase fluoxetine from 10 mg to 20 mg due to that matter. [facility] Medical History (Updated 12/23/23 @ 10:41 by Mago Baker MD) Obsessive compulsive disorder Chronic static encephalopathy Epilepsy Resides in skilled nursing care facility COVID-19 vaccine series completed Seizures Anxiety Chronic idiopathic constipation Difficult bowel movements Screening for breast cancer Screening for colon cancer Screening for diabetes mellitus Screening for hyperlipidemia Incontinence of urine in female Conjunctivitis Mentally challenged Status epilepticus Surgical History H/O tooth extraction Family History Father No problems noted. Mother Diabetes Cancer Social History Household Members Other:: resides in retirement Housing: Other Housing Other:: retirement Are you a primary health care marketing manager to a significant other at home: No Do you presently have visiting nurse or other home services: Yes (as above noted) Alcohol intake: never Patient Tobacco Use Status: Never used Tobacco e-Cigarette/Vaping Use: Never Used Second Hand Smoke Exposure: No service: No Current occupational status: disabled Cognitive needs: No Hearing needs: No Vision needs: No Questionnaire PHQ-9 Over the last 2 weeks, how often have you been bothered by any of the following problems? 1. Little interest or pleasure in doing things: not at all 2. Feeling down, depressed, or hopeless: not at all 3. Trouble falling or staying asleep, or sleeping too much: not at all 4. Feeling tired or having little energy: not at all 5. Poor appetite or overeating: several days 6. Feeling bad about yourself - or that you are a failure or have let yourself or your family down: not at all 7. Trouble concentrating on things, such as reading the newspaper or watching television: not at all 8. Moving or speaking so slowly that other people could have noticed. Or the opposite - being so fidgety or restless that you have been moving around a lot more than usual: not at all 9. Thoughts that you would be better off or of hurting yourself in some way: not at all Total score: 1 Depression Screening Interpretation: Positive Depression Screening Follow-up: Existing condition, Change in Medication and Follow-up Visit Requested Depression Screening Done: Yes 84615 - PHQ-9 Billing: Yes Source: Developed by Drs. Yusuf Landin, Abi Gallardo, Deyvi Lomeli and colleagues, with an educational javi from [employer]. Thrive Questionnaire Date Thrive assessed: 12/23/23 I am a: Parent/Caregiver What is your living situation today?: I have a steady place to live Within the past 12 months, did the food you bought not last and you didn't have the money to get more?: Never true Within the past 12 months, did you worry whether your food would run out before you got money to buy more?: Never true Do you have trouble paying for medicines?: No Do you have trouble getting transportation to medical appointments?: No Do you have trouble paying your heating and electricity bill?: No Do you have trouble taking care of your child, family member or friend?: No Do you have trouble with day-to-day activities such as bathing, preparing meals, shopping, managing finances, etc.?: No Are you currently unemployed and looking for a job?: No Are you interested in more education?: No Please select the resources that you would like help with: None Currently or been in a relationship where the following occur: No concerns reported THRIVE Score: 0 AUDIT C Alcohol Use Questionnaire (AUDIT-C) 1. How often do you have a drink containing alcohol?: Never Total Score: 0 Score Reviewed/Action Taken: No JAMES-7 AMB Questionnaire JAMES-7 Date JAMES - 7 assessed: 12/23/23 Feeling nervous, anxious, or on edge: 3 = Nearly every day Not being able to stop or control worryin = Not at all Worrying too much about different things: 0 = Not at all Trouble relaxin = Several days Being so restless that it is hard to sit still: 0 = Not at all Becoming easily annoyed or irritable: 3 = Nearly every day Feeling afraid as if something awful might happen: 0 = Not at all Total JAMES-7 score (0-4 normal; 5-9 mild; 10-14 moderate; 15-21 severe): 7 Source: Developed by Drs. Yusuf Landin, Abi Gallardo, Deyvi Lomeli and colleagues, with an educational javi from [employer]. JAMES-7 Assessment Billing JAMES-7 Assessment Tool: JAMES-7 Assessment 91115 Review of Systems Const All systems reviewed & are unremarkable except as noted in HPI and below Card Denies chest pain at rest, Denies chest pain with activity, Denies edema, Denies irregular heart rhythm, Denies claudication, Denies dyspnea, Denies dyspnea on exertion, Denies orthopnea, Denies paroxysmal nocturnal dyspnea and Denies slow heart rate Resp Denies cough, Denies dyspnea and Denies dyspnea on exertion GI Denies abdominal pain, Denies change in bowel habits, Denies excessive flatus, Denies nausea and Denies vomiting Denies urinary incontinence, Denies urinary hesitancy and Denies urinary urgency Musc Denies atrophy, Denies deformity and Denies limited range of motion Skin/Breast Denies bleeding lesions, Denies changing lesions and Denies rash Physical exam (Primary Care) Vital Signs: Last Vital Signs BP 122/76 12/23/23 10:12 BMI result Body Mass Index 23.8 BMI Assessment/Plan discussion: Low BMI Low, Plan discussed: lifestyle, increase calorie intake and dietary Tobacco/Smoking Status: Tobacco use Status Tobacco use date assessed 04/29/23 12/23/23 10:11 Patient Tobacco Use Status Never used Tobacco 12/23/23 10:11 e-Cigarette/Vaping Use Never Used 12/23/23 10:11 PHQ-9: PHQ-9 Score PHQ-9: Total score 1 12/23/23 10:31 Depression Screening Interpretation: Positive Depression Screening Follow-up: Existing condition, Change in Medication and Follow-up Visit Requested Thrive Assessment: Date of Thrive Assessment Date Thrive assessed 12/23/23 12/23/23 10:11 Currently or been in a relationship where the following occur: No concerns reported [facility] Head: Yes normal to inspection, Yes normocephalic and Yes atraumatic Ears: external ears normal Eyes General: appearance normal, both eyes and all related structures Eyelids: Yes eyelids normal Conjunctivae: conjunctivae normal Neck Neck: Yes normal visual inspection and Yes supple Resp Effort & Inspection: normal respiratory effort Auscultation: clear to auscultation bilaterally Cardio Jugular venous distension: no JVD Rate: regular rate Rhythm: regular rhythm Heart sounds: S1 normal heart sound present and S2 normal heart sound present GI Inspection: Yes normal to inspection Palpation (GI): Soft to palpation and nontender Auscultation: normal bowel sounds Skin General skin exam: no rashes or lesions noted Neuro General: no focal motor deficits Extrem General: Yes full ROM Assessment and Plan Assessment & Plan (1) Adult general medical exam: Code(s): Z00.00 - Encounter for general adult medical examination without abnormal findings Plan: Repeat in a year. (2) Seizures: Comment: last seizure 06/26/21-full body tremors-lasted 10 seconds Code(s): R56.9 - Unspecified convulsions Plan: Continue Keppra and phenobarbital. Follow-up with Neurology. Orders: Orders Comprehensive [place]. Panel Fast 6 Months E78.2 - Mixed hyperlipidemia Lipid Panel 6 Months E78.5 - Hyperlipidemia, unspecified Referrals Gastroenterology Referral D12.6 - Benign neoplasm of colon, unspecified Medications: New fluoxetine 20 mg PO DAILY 90 tabs 2RF 90 days Coding Level of Care Code Est Pt Prev Care 40-64y(36383) Diagnoses Adult general medical exam Z00.00 Seizures R56.9 Additional Codes JAMES-7 Assessment Billing - JAMES-7 Assessment Tool: JAMES-7 Assessment 55132 ([id number]) Time Spent (min) 30
[2023-12-23 10:12] VITALS: BP 122/76; BMI 23.8
== END 2023-12-23 10:42 | disposition home or self-care (01) ==
PROVIDERS: PCP Internal Medicine; Visit Provider Internal Medicine
DX: Z00.00 Encounter for general adult medical examination without abnormal findings (principal); R56.9 Unspecified convulsions; Z86.010 Personal history of colon polyps
CPT/HCPCS: 99396

== ENCOUNTER 2023-12-25 09:16 | Outpatient (REF) | payer MEDICARE, MEDICAID, SELFPAY ==
[2023-12-25 09:36] LABS: MANUAL DIFF FLAG NO
[2023-12-25 09:54] LABS: Basophils Absolute Auto 0.1 X10*3/uL (0.0-0.2); Basophils Percent Auto 0.9 % (0-2); Eosinophils Absolute Auto 0.2 X10*3/uL (0.0-0.4); Eosinophils Percent Auto 2.1 % (0-4); Hemoglobin 13.6 g/dl (12.0-16.0); Imm Gran Abs Auto 0.02 X10*3/uL (0.00-0.03); Imm Gran Pct Auto 0.3 % (0.0-0.4); Lymphocytes Absolute Auto 3.2 X10*3/uL (1.2-4.9); Lymphocytes Percent Auto 39.8 % (20-40); Mean Corpuscular HGB Conc 33.2 g/dl (31.0-35.0); Mean Corpuscular Hemoglobin 32.5 pg (27.0-33.0); Mean Corpuscular Volume 97.9 fL (80.0-98.0); Mean Platelet Volume 9.4 fL (9.4-12.3); Monocytes Absolute Auto 0.5 X10*3/uL (0.1-1.2); Monocytes Percent Auto 5.9 % (2-11); Platelet Count 337 X10*3/uL (160-400); Red Blood Count 4.19 X10*6/uL (4.20-5.50); Red Cell Distribution Width 12.3 % (11.0-16.0); White Blood Count 7.9 X10*3/uL (4.8-10.8)
[2023-12-25 10:53] LABS: Alanine Aminotransferase 16 U/L (0-31); Albumin Level 4.4 g/dL (3.5-5.0); Alkaline Phosphatase 134 U/L (39-117); Anion Gap 14 (12-20); Aspartate Amino Transferase 29 U/L (5-31); Bilirubin Total 0.3 mg/dL (0.0-1.0); Blood Urea Nitrogen 16 mg/dL (9-16); Calcium 9.6 mg/dL (8.4-10.2); Carbon Dioxide 27 mmol/L (22-29); Chloride 106 mmol/L (96-108); Cholesterol 216 mg/dL (<200); Estimated Glomerular Filt Rate 51; Glucose Fasting 86 mg/dL (60-99); HDL Cholesterol 64 mg/dL (>40); LDL Cholesterol Calculated 126 mg/dL (<100); Potassium 4.2 mmol/L (3.3-5.1); Sodium 143 mmol/L (135-145); Total Protein 7.6 g/dL (6.5-8.0); Triglycerides 134 mg/dL (<150)
== END 2023-12-25 09:17 | disposition home or self-care (01) ==
LOC: HO.LAB 09:16
PROVIDERS: PCP Internal Medicine; Visit Provider Internal Medicine
DX: G40.909 Epilepsy, unspecified, not intractable, without status epilepticus (principal); E78.5 Hyperlipidemia, unspecified
CPT/HCPCS: 36415; 80053; 80061; 80184; 85025

== ENCOUNTER 2024-01-22 15:44 | Outpatient (AMB) | payer MEDICARE, MEDICAID, SELFPAY ==
[2024-01-22 15:56] VITALS: BP 120/70; BMI 24.2
--- NOTE | 2024-01-22 15:56 | A.OFFPC_ITS ---
Vital Signs 01/22/24 15:56 Height 4 ft 8 in Weight 108 lb BMI 24.2 BP 120/70 Blood Pressure Location Lt brachial Position Sitting Intake Visit Reasons: Constipation PRN Consumer Education Specialist Required: No Accompanied by: staff Allergies No Known Allergies Allergy (Verified 01/22/24 16:09) Medication List - Last Reconciled 01/22/24 by Mago Baker MD atorvastatin 40 mg PO BEDTIME 90 days cholecalciferol (vitamin D3) 50 mcg PO DAILY 90 days clonazepam 1 mg PO BEDTIME diaper,brief,adult,disposable As directed diphenhydramine HCl (Banophen) 25 mg PO TID PRN fluoxetine 20 mg PO DAILY 90 days Gait belt As directed lacosamide (Vimpat) 100 mg PO BID lactulose 10 grams (15 mL) PO BID PRN 10 days lamotrigine 200 mg PO BID levetiracetam 500 mg PO BID miscellaneous medical supply HOSPITAL BED WITH MATTRESS phenobarbital 97.2 mg PO BEDTIME polyethylene glycol 3350 (Miralax) 17 grams PO DAILY PRN 30 days Tobacco use date assessed: 04/29/23 Dental Screening Dental Screen Date: 12/23/23 HPI HPI Comments History of Present Illness Details This is a 58-year-old male with chronic idiopathic constipation, seizures, dyslipidemia and low vitamin-D that comes today accompanied by staff member complaining of occasional constipation. She does use MiraLax as needed and needs lactulose when MiraLax does not work. Seizures happen stable and has not had a seizure in over a month. Cholesterol has improved with statins. On vitamin-D supplements for her low vitamin-D. No chest pain or shortness on breath. Patient is mentally challenged and is not able to answer any question. [facility] Medical History (Updated 01/23/24 @ 11:33 by Mago Baker MD) Obsessive compulsive disorder Chronic static encephalopathy Epilepsy Resides in [facility] facility COVID-19 vaccine series completed Seizures Anxiety Chronic idiopathic constipation Difficult bowel movements Screening for breast cancer Screening for colon cancer Screening for diabetes mellitus Screening for hyperlipidemia Incontinence of urine in female Conjunctivitis Mentally challenged Status epilepticus Surgical History H/O tooth extraction Family History Father No problems noted. Mother Diabetes Cancer Social History Household Members Other:: resides in fpc Housing: Other Housing Other:: fpc Are you a primary district manager primary care sales to a significant other at home: No Do you presently have visiting nurse or other home services: Yes (as above noted) Alcohol intake: never Patient Tobacco Use Status: Never used Tobacco e-Cigarette/Vaping Use: Never Used Second Hand Smoke Exposure: No service: No Current occupational status: disabled Cognitive needs: No Hearing needs: No Vision needs: No Questionnaire Thrive Questionnaire Date Thrive assessed: 12/16/23 I am a: Parent/Caregiver What is your living situation today?: I have a steady place to live Within the past 12 months, did the food you bought not last and you didn't have the money to get more?: Never true Within the past 12 months, did you worry whether your food would run out before you got money to buy more?: Never true Do you have trouble paying for medicines?: No Do you have trouble getting transportation to medical appointments?: No Do you have trouble paying your heating and electricity bill?: No Do you have trouble taking care of your child, family member or friend?: No Do you have trouble with day-to-day activities such as bathing, preparing meals, shopping, managing finances, etc.?: No Are you currently unemployed and looking for a job?: No Are you interested in more education?: No Please select the resources that you would like help with: None Currently or been in a relationship where the following occur: No concerns reported THRIVE Score: 0 JAMES-7 AMB Questionnaire JAMES-7 Date JAMES - 7 assessed: 12/23/23 Source: Developed by Drs. Yusuf Landin, Abi Gallardo, Deyvi Lomeli and colleagues, with an educational javi from [employer]. Review of Systems Const All systems reviewed & are unremarkable except as noted in HPI and below Card Denies chest pain at rest, Denies chest pain with activity, Denies edema, Denies irregular heart rhythm, Denies claudication, Denies dyspnea, Denies dyspnea on exertion, Denies orthopnea, Denies paroxysmal nocturnal dyspnea and Denies slow heart rate Resp Denies cough, Denies dyspnea and Denies dyspnea on exertion GI Denies abdominal pain, Denies change in bowel habits, Denies excessive flatus, Denies nausea and Denies vomiting Denies urinary incontinence, Denies urinary hesitancy and Denies urinary urgency Musc Denies atrophy, Denies deformity and Denies limited range of motion Skin/Breast Denies bleeding lesions, Denies changing lesions and Denies rash Physical exam (Primary Care) Vital Signs: Last Vital Signs BP 120/70 01/22/24 15:56 BMI result Body Mass Index 24.2 Tobacco/Smoking Status: Tobacco use Status Tobacco use date assessed 04/29/23 01/22/24 16:00 Patient Tobacco Use Status Never used Tobacco 01/22/24 16:00 e-Cigarette/Vaping Use Never Used 01/22/24 16:00 Thrive Assessment: Date of Thrive Assessment Date Thrive assessed 12/16/23 01/22/24 16:00 Currently or been in a relationship where the following occur: No concerns reported Resp Effort & Inspection: normal respiratory effort Auscultation: clear to auscultation bilaterally Cardio Jugular venous distension: no JVD Rate: regular rate Rhythm: regular rhythm Heart sounds: S1 normal heart sound present and S2 normal heart sound present Extrem General: Yes full ROM Office Procedures Flu Questionnaire Does the patient have a severe egg allergy?: No Immunizations Fluarix Triv [id number] (PF) 45 mcg (15 mcg x 3)/0.5 mL IM syringe Performing Provider: Mago Baker MD Performing Location: [facility] Documented (not given) by: KIM Michelle on 01/22/24 16:24 Reason Not Given: Not Given Coding Level of Care Code Est Pt Level 4 (15495) Complex EM visit Add On G2211 Diagnoses Dyslipidemia E78.5 Seizures R56.9 Chronic idiopathic constipation K59.04 Hypovitaminosis D E55.9 Time Spent (min) 21 Assessment & Plan Assessment & Plan (1) Dyslipidemia: Code(s): E78.5 - Hyperlipidemia, unspecified Category: Medical Plan: Continue statins. Follow a low-cholesterol diet. (2) Seizures: Comment: last seizure 06/26/21-full body tremors-lasted 10 seconds Code(s): R56.9 - Unspecified convulsions Category: Medical Plan: Continue phenobarbital. Follow-up with Neurology. (3) Chronic idiopathic constipation: Code(s): K59.04 - Chronic idiopathic constipation Category: Medical Plan: Continue MiraLax as needed. Use lactulose when MiraLax does not work. (4) Hypovitaminosis D: Code(s): E55.9 - Vitamin D deficiency, unspecified Category: Medical Plan: Continue vitamin-D supplements. Orders: Orders Influenza [id number] Immunization 01/22/24 Z23 - Encounter for immunization Medications: Changed From lactulose 10 grams (15 mL) PO BID 10 days PRN 237 mL 0RF constipation To lactulose 10 grams (15 mL) PO BID PRN 237 mL 6RF constipation if Miralx does not work 30 days
== END 2024-01-22 16:20 | disposition home or self-care (01) ==
PROVIDERS: PCP Internal Medicine; Visit Provider Internal Medicine
DX: E78.5 Hyperlipidemia, unspecified (principal); R56.9 Unspecified convulsions; K59.04 Chronic idiopathic constipation; E55.9 Vitamin D deficiency, unspecified

== ENCOUNTER → 2024-01-22 15:44 | Outpatient (BNVA) | payer MEDICARE, MEDICAID, SELFPAY | PROVIDERS: PCP Internal Medicine; Visit Provider Internal Medicine | DX: K59.04 Chronic idiopathic constipation (principal); E78.5 Hyperlipidemia, unspecified; R56.9 Unspecified convulsions; E55.9 Vitamin D deficiency, unspecified | CPT/HCPCS: 90471; 99212 ==

== ENCOUNTER 2024-03-02 11:22 | Outpatient (AMB) | payer MEDICARE, MEDICAID, SELFPAY ==
[2024-03-02 11:32] VITALS: BP 106/70; PULSE 90; O2SAT 94; BMI 23.8
--- NOTE | 2024-03-02 11:32 | A.OFFPC_ITS ---
Vital Signs 3 03/02/24 11:32 Height 4 ft 8 in Weight 106 lb BMI 23.8 BP 106/70 Blood Pressure Location Rt brachial Position Sitting Pulse 90 Pulse Source Pulse Oximeter Pulse Oximetry (%) 94 Oxygen Delivery Method Room Air Intake Visit Reasons: Wing 02/22 head injury Dinkey Locomotive Engineer Required: No Accompanied by: Self / Same As Patient Allergies No Known Allergies Allergy (Verified 03/02/24 11:33) Tobacco use date assessed: 04/29/23 Dental Screening Dental Screen Date: 12/23/23 HPI HPI Comments 2 History of Present Illness0 Details 58 y/o female patient who presents to [facility] for EDF. She was admitted at [facility] due to Fall and hit head. CT head negative. No available hospital notes for review. [facility] Medical History Obsessive compulsive disorder Chronic static encephalopathy Epilepsy Resides in halfway care facility COVID-19 vaccine series completed Seizures Anxiety Chronic idiopathic constipation Difficult bowel movements Screening for breast cancer Screening for colon cancer Screening for diabetes mellitus Screening for hyperlipidemia Incontinence of urine in female Conjunctivitis Mentally challenged Status epilepticus Surgical History H/O tooth extraction Family History Father No problems noted. Mother Diabetes Cancer Social History Household Members Other:: resides in [facility] Housing: Other Housing Other:: [facility] Are you a primary occasional caregiver to a significant other at home: No Do you presently have visiting nurse or other home services: Yes (as above noted) Alcohol intake: never Patient Tobacco Use Status: Never used Tobacco e-Cigarette/Vaping Use: Never Used Second Hand Smoke Exposure: No service: No Current occupational status: disabled Cognitive needs: No Hearing needs: No Vision needs: No Questionnaire Thrive Questionnaire Date Thrive assessed: 12/16/23 I am a: Parent/Caregiver What is your living situation today?: I have a steady place to live Within the past 12 months, did the food you bought not last and you didn't have the money to get more?: Never true Within the past 12 months, did you worry whether your food would run out before you got money to buy more?: Never true Do you have trouble paying for medicines?: No Do you have trouble getting transportation to medical appointments?: No Do you have trouble paying your heating and electricity bill?: No Do you have trouble taking care of your child, family member or friend?: No Do you have trouble with day-to-day activities such as bathing, preparing meals, shopping, managing finances, etc.?: No Are you currently unemployed and looking for a job?: No Are you interested in more education?: No Please select the resources that you would like help with: None Currently or been in a relationship where the following occur: No concerns reported THRIVE Score: 0 JAMES-7 AMB Questionnaire JAMES-7 Date JAMES - 7 assessed: 12/23/23 Source: Developed by Drs. Yusuf Landin, Abi Gallardo, Deyvi Lomeli and colleagues, with an educational javi from [employer]. Review of Systems Const All systems reviewed & are unremarkable except as noted in HPI and below Physical exam (Primary Care) Vital Signs: Last Vital Signs Pulse 90 03/02/24 11:32 BP 106/70 03/02/24 11:32 Pulse Ox 94 03/02/24 11:32 Oxygen Delivery Method Room Air 03/02/24 11:32 BMI result Body Mass Index 23.8 Tobacco/Smoking Status: Tobacco use Status Tobacco use date assessed 04/29/23 03/02/24 11:33 Patient Tobacco Use Status Never used Tobacco 03/02/24 11:33 e-Cigarette/Vaping Use Never Used 03/02/24 11:33 Thrive Assessment: Date of Thrive Assessment Date Thrive assessed 12/16/23 03/02/24 11:33 Currently or been in a relationship where the following occur: No concerns reported Const General: no acute distress Limitations: behavioral limitations HENMT Head: Yes hematoma Head images: 2 1. Small abrasion left frontal. Small hematoma/contusion. Resp Effort & Inspection: normal respiratory effort Auscultation: clear to auscultation bilaterally Cardio Heart sounds: S1 normal heart sound present and S2 normal heart sound present Coding Level of Care Code Est Pt Level 4 (22910) Diagnoses Injury of head, subsequent encounter S09.90XD Encounter type: subsequent encounter Time Spent (min) 20 Assessment & Plan Assessment & Plan (1) Head injury: Code(s): S09.90XA - Unspecified injury of head, initial encounter Category: Medical Qualifiers: Encounter type: subsequent encounter Qualified Code(s): S09.90XD - Unspecified injury of head, subsequent encounter Plan: Stable. Acetaminophen for pain relief.
== END 2024-03-02 12:08 | disposition home or self-care (01) ==
PROVIDERS: PCP Internal Medicine; Visit Provider Nurse Practitioner Family
DX: S09.90XA Unspecified injury of head, initial encounter (principal)

== ENCOUNTER → 2024-03-02 11:22 | Outpatient (BNVA) | payer MEDICARE, MEDICAID, SELFPAY | PROVIDERS: PCP Internal Medicine; Visit Provider Nurse Practitioner Family | DX: S09.90XD Unspecified injury of head, subsequent encounter (principal) | CPT/HCPCS: 99212 ==

== ENCOUNTER 2024-04-12 14:16 | Outpatient (AMB) | payer MEDICARE, MEDICAID, SELFPAY ==
--- NOTE | 2024-04-12 14:38 | MHC.PC.OV ---
Vital Signs 04/12/24 14:39 Height 4 ft 8 in Weight 107 lb BMI 24.0 BP 130/60 Blood Pressure Location Lt brachial Position Sitting Intake Visit Reasons: [facility] 04/07 Intake Note: Patient is here to follow up on 04/07/24. Senior Technical Support Analyst Required: No Unemployment Specialist: Present Accompanied by: staff Allergies No Known Allergies Allergy (Verified 04/12/24 14:39) Tobacco use date assessed: 04/12/24 Dental Screening Dental Screen Date: 12/23/23 HPI [facility] 04/07 HPI Details 59-year-old female with history of developmental difficulties and living in a halfway come for a post ER visit. She is accompanied by her caregiver. Patient by herself can not give any history. She had a fall and was seen at the local emergency room. Patient had a CT scan of the head done which was report read negative. She is back at her baseline state of health. [facility] Medical History Obsessive compulsive disorder Chronic static encephalopathy Epilepsy Resides in retirement care facility COVID-19 vaccine series completed Seizures Anxiety Chronic idiopathic constipation Difficult bowel movements Screening for breast cancer Screening for colon cancer Screening for diabetes mellitus Screening for hyperlipidemia Incontinence of urine in female Conjunctivitis Mentally challenged Status epilepticus Surgical History H/O tooth extraction Family History Father No problems noted. Mother Diabetes Cancer Social History Household Members Other:: resides in halfway Housing: Other Housing Other:: halfway Are you a primary professional healthcare representative to a significant other at home: No Do you presently have visiting nurse or other home services: Yes (as above noted) Alcohol intake: never Patient Tobacco Use Status: Never used Tobacco e-Cigarette/Vaping Use: Never Used Second Hand Smoke Exposure: No service: No Current occupational status: disabled Cognitive needs: No Hearing needs: No Vision needs: No Questionnaire Thrive Questionnaire Date Thrive assessed: 12/16/23 I am a: Parent/Caregiver What is your living situation today?: I have a steady place to live Within the past 12 months, did the food you bought not last and you didn't have the money to get more?: Never true Within the past 12 months, did you worry whether your food would run out before you got money to buy more?: Never true Do you have trouble paying for medicines?: No Do you have trouble getting transportation to medical appointments?: No Do you have trouble paying your heating and electricity bill?: No Do you have trouble taking care of your child, family member or friend?: No Do you have trouble with day-to-day activities such as bathing, preparing meals, shopping, managing finances, etc.?: No Are you currently unemployed and looking for a job?: No Are you interested in more education?: No Please select the resources that you would like help with: None Currently or been in a relationship where the following occur: No concerns reported THRIVE Score: 0 JAMES-7 AMB Questionnaire JAMES-7 Date JAMES - 7 assessed: 12/23/23 Source: Developed by Drs. Yusuf Landin, Abi Gallardo, Deyvi Lomeli and colleagues, with an educational javi from [employer]. Physical exam (Primary Care) Vital Signs: Last Vital Signs BP 130/60 04/12/24 14:39 BMI result Body Mass Index 24.0 Tobacco/Smoking Status: Tobacco use Status Tobacco use date assessed 04/12/24 04/12/24 14:57 Patient Tobacco Use Status Never used Tobacco 04/12/24 14:57 e-Cigarette/Vaping Use Never Used 04/12/24 14:57 Thrive Assessment: Date of Thrive Assessment Date Thrive assessed 12/16/23 04/12/24 14:57 Currently or been in a relationship where the following occur: No concerns reported Const General: cooperative and healthy appearing Nutritional Appearance: well nourished Orientation/consciousness: patient oriented x3 Limitations: no limitations HENMT Head: Yes normal to inspection Eyes General: appearance normal, both eyes and all related structures Neck Neck: Yes normal visual inspection Chest Chest palpation & inspection: normal palpation of entire chest wall Resp Effort & Inspection: normal respiratory effort Neuro General: patient oriented x3 Coding Level of Care Code Est Pt Level 3 (46432) Complex EM visit Add On G2211 Diagnoses Status post fall Z91.81 Assessment & Plan Assessment & Plan (1) Status post fall: Code(s): Z91.81 - History of falling Category: Medical Plan: Hospital ER visit reviewed. Reassurance.
[2024-04-12 14:39] VITALS: BP 130/60; BMI 24.0
== END 2024-04-12 15:10 | disposition home or self-care (01) ==
PROVIDERS: PCP Internal Medicine; Visit Provider Internal Medicine
DX: Z91.81 History of falling (principal)

== ENCOUNTER → 2024-04-12 14:16 | Outpatient (BNVA) | payer MEDICARE, MEDICAID, SELFPAY | PROVIDERS: PCP Internal Medicine; Visit Provider Internal Medicine | DX: Z91.81 History of falling (principal); R62.50 Unspecified lack of expected normal physiological development in childhood | CPT/HCPCS: 99212 ==

== ENCOUNTER 2024-04-15 15:22 | Outpatient (AMB) | payer MEDICARE, MEDICAID, SELFPAY ==
--- NOTE | 2024-04-15 15:24 | A.OFFPC_ITS ---
Vital Signs 04/15/24 15:29 Height 4 ft 8 in Weight 110 lb 8 oz BMI 24.8 BP 120/80 Blood Pressure Location Lt brachial Position Sitting Pulse 80 Pulse Source Pulse Oximeter Pulse Oximetry (%) 97 Oxygen Delivery Method Room Air Intake Visit Reasons: staple removal Intake Note: Patient is here to follow up on staple removal. Developer Trading Systems Required: No Senior Marketing Specialist: Not Required per policy Accompanied by: Self / Same As Patient Allergies No Known Allergies Allergy (Verified 04/15/24 16:04) Medication List - Last Reconciled 04/15/24 by Kendy Randhawa PA-C atorvastatin 40 mg PO BEDTIME 90 days cholecalciferol (vitamin D3) 50 mcg PO DAILY 90 days clonazepam 1 mg PO BEDTIME diaper,brief,adult,disposable As directed diphenhydramine HCl (Banophen) 25 mg PO TID PRN fluoxetine 20 mg PO DAILY 90 days Gait belt As directed lacosamide (Vimpat) 100 mg PO BID lactulose 10 grams (15 mL) PO BID PRN 30 days lamotrigine 200 mg PO BID levetiracetam 500 mg PO BID miscellaneous medical supply HOSPITAL BED WITH MATTRESS phenobarbital 97.2 mg PO BEDTIME polyethylene glycol 3350 (Miralax) 17 grams PO DAILY PRN 30 days Tobacco use date assessed: 04/15/24 Dental Screening Dental Screen Date: 04/15/24 Did you have a dental visit in the last 12 months?: No Did you have a dental problem in the last 6 months where you did not have access to dental care?: No Was dental information given to patient?: No HPI staple removal HPI Details Patient was seen at the urgent care on 03/02/2024 for a fall and sustained a head injury and required 2 duane to the left side of her scalp parietal aspect. She is at bedside with her VETERINARY POULTRY INSPECTOR requesting for the duane to be removed. They deny any drainage, pain or any other symptoms complaints or concerns. They report that she is at her normal state of health and at her baseline. [facility] Medical History Obsessive compulsive disorder Chronic static encephalopathy Epilepsy Resides in terminal manager care facility COVID-19 vaccine series completed Seizures Anxiety Chronic idiopathic constipation Difficult bowel movements Screening for breast cancer Screening for colon cancer Screening for diabetes mellitus Screening for hyperlipidemia Incontinence of urine in female Conjunctivitis Mentally challenged Status epilepticus Surgical History H/O tooth extraction Family History Father No problems noted. Mother Diabetes Cancer Social History Household Members Other:: resides in retirement Housing: Other Housing Other:: retirement Are you a primary health care marketing specialist to a significant other at home: No Do you presently have visiting nurse or other home services: Yes (as above noted) Alcohol intake: never Patient Tobacco Use Status: Never used Tobacco e-Cigarette/Vaping Use: Never Used Second Hand Smoke Exposure: No service: No Current occupational status: disabled Cognitive needs: No Hearing needs: No Vision needs: No Questionnaire PHQ-9 Over the last 2 weeks, how often have you been bothered by any of the following problems? 1. Little interest or pleasure in doing things: not at all 2. Feeling down, depressed, or hopeless: not at all 3. Trouble falling or staying asleep, or sleeping too much: not at all 4. Feeling tired or having little energy: not at all 5. Poor appetite or overeating: not at all 6. Feeling bad about yourself - or that you are a failure or have let yourself or your family down: not at all 7. Trouble concentrating on things, such as reading the newspaper or watching television: not at all 8. Moving or speaking so slowly that other people could have noticed. Or the opposite - being so fidgety or restless that you have been moving around a lot more than usual: not at all 9. Thoughts that you would be better off or of hurting yourself in some way: not at all Total score: 0 Depression Screening Interpretation: Negative Depression Screening Done: Yes Source: Developed by Drs. Yusuf Landin, Abi Gallardo, Deyvi Lomeli and colleagues, with an educational javi from [employer]. Thrive Questionnaire Date Thrive assessed: 04/15/24 I am a: Patient What is your living situation today?: I have a steady place to live Within the past 12 months, did the food you bought not last and you didn't have the money to get more?: Never true Within the past 12 months, did you worry whether your food would run out before you got money to buy more?: Never true Do you have trouble paying for medicines?: No Do you have trouble getting transportation to medical appointments?: No Do you have trouble paying your heating and electricity bill?: No Do you have trouble taking care of your child, family member or friend?: No Do you have trouble with day-to-day activities such as bathing, preparing meals, shopping, managing finances, etc.?: No Are you currently unemployed and looking for a job?: No Are you interested in more education?: No Currently or been in a relationship where the following occur: No concerns reported THRIVE Score: 0 AUDIT C Alcohol Use Questionnaire (AUDIT-C) 1. How often do you have a drink containing alcohol?: Never Total Score: 0 JAMES-7 AMB Questionnaire JAMES-7 Date JAMES - 7 assessed: 04/15/24 Feeling nervous, anxious, or on edge: 0 = Not at all Not being able to stop or control worryin = Not at all Worrying too much about different things: 0 = Not at all Trouble relaxin = Not at all Being so restless that it is hard to sit still: 0 = Not at all Becoming easily annoyed or irritable: 0 = Not at all Feeling afraid as if something awful might happen: 0 = Not at all Total JAMES-7 score (0-4 normal; 5-9 mild; 10-14 moderate; 15-21 severe): 0 Source: Developed by Drs. Yusuf Landin, Abi Gallardo, Deyvi Lomeli and colleagues, with an educational javi from [employer]. Review of Systems Const Details: They deny any drainage or pain to the site. VETERINARY POULTRY INSPECTOR at bedside with the patient who is main historian All systems reviewed & are unremarkable except as noted in HPI and below Physical exam (Primary Care) Vital Signs: Last Vital Signs Pulse 80 04/15/24 15:29 BP 120/80 04/15/24 15:29 Pulse Ox 97 04/15/24 15:29 Oxygen Delivery Method Room Air 04/15/24 15:29 BMI result Body Mass Index 24.8 Tobacco/Smoking Status: Tobacco use Status Tobacco use date assessed 04/15/24 04/15/24 15:36 Patient Tobacco Use Status Never used Tobacco 04/15/24 15:36 e-Cigarette/Vaping Use Never Used 04/15/24 15:36 PHQ-9: PHQ-9 Score PHQ-9: Total score 0 04/15/24 15:36 Depression Screening Interpretation: Negative Thrive Assessment: Date of Thrive Assessment Date Thrive assessed 04/15/24 04/15/24 15:36 Currently or been in a relationship where the following occur: No concerns reported Const Other: Patient is alert. Appears healthy. In no acute distress. Left parietal scalp with [address] with well-healing wound with overlying scab. There are no drainage, purulent or foul odor, spreading or advancing erythema, streaking, induration, fluctuance or signs of active infection. Coding Level of Care Code Est Pt Level 3 (49686) Complex EM visit Add On G2211 Diagnoses Removal of staple Z48.02 Assessment & Plan Assessment & Plan (1) Removal of staple: Code(s): Z48.02 - Encounter for removal of sutures Category: Medical Plan: Two duane were removed to the left parietal scalp. Well-healing scab. No signs of infection. No complications. Patient tolerated procedure well. Plan Duane were removed. No complications. Patient to follow-up with PCP and continue taking medications as prescribed. VETERINARY POULTRY INSPECTOR worker at bedside with walking gait attached to the patient for safety.
[2024-04-15 15:29] VITALS: BP 120/80; PULSE 80; O2SAT 97; BMI 24.8
== END 2024-04-15 17:15 | disposition home or self-care (01) ==
PROVIDERS: PCP Internal Medicine; Visit Provider Internal Medicine
DX: Z48.02 Encounter for removal of sutures (principal)

== ENCOUNTER → 2024-04-15 15:22 | Outpatient (BNVA) | payer MEDICARE, MEDICAID, SELFPAY | PROVIDERS: PCP Internal Medicine; Visit Provider Internal Medicine | DX: Z48.02 Encounter for removal of sutures (principal) | CPT/HCPCS: 96127; 99212 ==

== ENCOUNTER 2024-09-22 10:01 | Outpatient (AMB) | payer MEDICARE, MEDICAID, SELFPAY ==
--- NOTE | 2024-09-22 10:03 | MHC.PC.OV ---
Vital Signs 09/22/24 10:06 Height 4 ft 8 in Weight 97 lb BMI 21.7 BP 118/70 Blood Pressure Location Lt brachial Position Sitting Intake Visit Reasons: seizures,lipids Intake Note: Patient here for a follow up seizures, lipids Correctional Casework Specialist Required: No Accompanied by: staff Allergies No Known Allergies Allergy (Verified 09/22/24 10:15) Medication List - Last Reconciled 09/22/24 by Mago Baker MD acetaminophen 500 mg PO Q6H PRN 30 days atorvastatin 40 mg PO BEDTIME 90 days cholecalciferol (vitamin D3) 50 mcg PO DAILY 90 days clonazepam 1 mg PO BEDTIME diaper,brief,adult,disposable As directed diphenhydramine HCl (Banophen) 25 mg PO TID PRN 30 days fluoxetine 20 mg PO DAILY 90 days Gait belt As directed lacosamide (Vimpat) 100 mg PO BID lactulose 10 grams (15 mL) PO BID PRN 30 days lamotrigine 200 mg PO BID levetiracetam 500 mg PO BID miscellaneous medical supply HOSPITAL BED WITH MATTRESS phenobarbital 97.2 mg PO BEDTIME polyethylene glycol 3350 (Miralax) 17 grams PO DAILY PRN 30 days Tobacco use date assessed: 04/15/24 Dental Screening Dental Screen Date: 04/15/24 HPI HPI Comments History of Present Illness Details The patient is a 59-year-old female presenting with developmental delay and seizure disorder management. The developmental delay involves repetitive speech and difficulty with commands, while her seizures are controlled with Keppra and phenobarbital under neurological supervision. She has pure hypercholesterolemia managed with statins, with blood work planned for her December physical exam. The patient reports a weight loss of 12 to 13 pounds since April, prompting labs to rule out diabetes and thyroid issues. Anxiety and obsessive-compulsive tendencies are noted, with no current psychiatric care. [facility] Medical History (Updated 09/22/24 @ 10:24 by Mago Baker MD) Obsessive compulsive disorder Chronic static encephalopathy Epilepsy [facility] in [facility] COVID-19 vaccine series completed Seizures Anxiety Chronic idiopathic constipation Difficult bowel movements Screening for breast cancer Screening for colon cancer Screening for diabetes mellitus Screening for hyperlipidemia Incontinence of urine in female Conjunctivitis Mentally challenged Status epilepticus Surgical History H/O tooth extraction Family History Father No problems noted. Mother Diabetes Cancer Social History Household Members Other:: resides in [facility] Housing: Other Housing Other:: [facility] Are you a primary urgent care technician to a significant other at home: No Do you presently have visiting nurse or other home services: Yes (as above noted) Alcohol intake: never Patient Tobacco Use Status: Never used Tobacco e-Cigarette/Vaping Use: Never Used Second Hand Smoke Exposure: No service: No Current occupational status: disabled Cognitive needs: No Hearing needs: No Vision needs: No Questionnaire PHQ-9 Over the last 2 weeks, how often have you been bothered by any of the following problems? 1. Little interest or pleasure in doing things: not at all 2. Feeling down, depressed, or hopeless: not at all 3. Trouble falling or staying asleep, or sleeping too much: not at all 4. Feeling tired or having little energy: not at all 5. Poor appetite or overeating: not at all 6. Feeling bad about yourself - or that you are a failure or have let yourself or your family down: not at all 7. Trouble concentrating on things, such as reading the newspaper or watching television: not at all 8. Moving or speaking so slowly that other people could have noticed. Or the opposite - being so fidgety or restless that you have been moving around a lot more than usual: not at all 9. Thoughts that you would be better off or of hurting yourself in some way: not at all Total score: 0 Depression Screening Interpretation: Negative Depression Screening Done: Yes 55444 - PHQ-9 Billing: Yes Source: Developed by Drs. Yusuf Landin, Abi Gallardo, Deyvi Lomeli and colleagues, with an educational javi from [employer] Thrive Questionnaire Date Thrive assessed: 09/22/24 I am a: Parent/Caregiver What is your living situation today?: I have a steady place to live Within the past 12 months, did the food you bought not last and you didn't have the money to get more?: I choose not to answer this question Within the past 12 months, did you worry whether your food would run out before you got money to buy more?: I choose not to answer this question Do you have trouble paying for medicines?: I choose not to answer this question Do you have trouble getting transportation to medical appointments?: I choose not to answer this question Do you have trouble paying your heating and electricity bill?: I choose not to answer this question Do you have trouble taking care of your child, family member or friend?: I choose not to answer this question Do you have trouble with day-to-day activities such as bathing, preparing meals, shopping, managing finances, etc.?: I choose not to answer this question Are you currently unemployed and looking for a job?: I choose not to answer this question Are you interested in more education?: I choose not to answer this question Please select the resources that you would like help with: None Currently or been in a relationship where the following occur: I choose not to answer THRIVE Score: 0 AUDIT C Alcohol Use Questionnaire (AUDIT-C) 1. How often do you have a drink containing alcohol?: Never Total Score: 0 JAMES-7 AMB Questionnaire JAMES-7 Date JAMES - 7 assessed: 09/22/24 Feeling nervous, anxious, or on edge: 0 = Not at all Not being able to stop or control worryin = Not at all Worrying too much about different things: 0 = Not at all Trouble relaxin = Not at all Being so restless that it is hard to sit still: 0 = Not at all Becoming easily annoyed or irritable: 0 = Not at all Feeling afraid as if something awful might happen: 0 = Not at all Total JAMES-7 score (0-4 normal; 5-9 mild; 10-14 moderate; 15-21 severe): 0 Source: Developed by Drs. Yusuf Landin, Abi Gallardo, Deyvi Lomeli and colleagues, with an educational javi from [employer] JAMES-7 Assessment Billing JAMES-7 Assessment Tool: JAMES-7 Assessment 63559 Review of Systems Const All systems reviewed & are unremarkable except as noted in HPI and below Card Denies chest pain at rest, Denies chest pain with activity, Denies edema, Denies irregular heart rhythm, Denies claudication, Denies dyspnea, Denies dyspnea on exertion, Denies orthopnea, Denies paroxysmal nocturnal dyspnea and Denies slow heart rate Resp Denies cough, Denies dyspnea and Denies dyspnea on exertion GI Denies abdominal pain, Denies change in bowel habits, Denies excessive flatus, Denies nausea and Denies vomiting Denies urinary incontinence, Denies urinary hesitancy and Denies urinary urgency Musc Denies abnormal gait, Denies atrophy, Denies deformity and Denies limited range of motion Skin/Breast Denies bleeding lesions, Denies changing lesions and Denies rash Neuro Denies abnormal gait, Denies behavioral changes and Denies lack of coordination Psych Denies behavioral changes Physical exam (Primary Care) Vital Signs: Last Vital Signs BP 118/70 09/22/24 10:06 BMI result Body Mass Index 21.7 Tobacco/Smoking Status: Tobacco use Status Tobacco use date assessed 04/15/24 09/22/24 10:04 Patient Tobacco Use Status Never used Tobacco 09/22/24 10:04 e-Cigarette/Vaping Use Never Used 09/22/24 10:04 PHQ-9: PHQ-9 Score PHQ-9: Total score 0 09/22/24 10:18 Depression Screening Interpretation: Negative Thrive Assessment: Date of Thrive Assessment Date Thrive assessed 09/22/24 09/22/24 10:04 Currently or been in a relationship where the following occur: I choose not to answer Resp Effort & Inspection: normal respiratory effort Auscultation: clear to auscultation bilaterally Cardio Jugular venous distension: no JVD Rate: regular rate Rhythm: regular rhythm Heart sounds: S1 normal heart sound present and S2 normal heart sound present Extrem General: Yes full ROM Coding Level of Care Code Est Pt Level 4 (19550) Complex EM visit Add On G2211 Diagnoses OCD (obsessive compulsive disorder) F42.9 Dyslipidemia E78.5 Weight loss R63.4 Seizures R56.9 Anxiety F41.9 Additional Codes JAMES-7 Assessment Billing - JAMES-7 Assessment Tool: JAMES-7 Assessment 40862 ([id number]) PHQ-9 - 41988 - PHQ-9 Billing: Yes ([id number]) Time Spent (min) 21 Assessment & Plan Assessment & Plan (1) OCD (obsessive compulsive disorder): Code(s): F42.9 - Obsessive-compulsive disorder, unspecified Category: Medical (2) Dyslipidemia: Code(s): E78.5 - Hyperlipidemia, unspecified Category: Medical (3) Weight loss: Code(s): R63.4 - Abnormal weight loss Category: Medical (4) Seizures: Comment: last seizure 06/26/21-full body tremors-lasted 10 seconds Code(s): R56.9 - Unspecified convulsions Category: Medical (5) Anxiety: Code(s): F41.9 - Anxiety disorder, unspecified Category: Medical Plan The patient will continue her current regimen of Keppra and phenobarbital for seizure management. Blood tests are planned to assess cholesterol levels and investigate the cause of weight loss, specifically ruling out diabetes and thyroid dysfunction. Anxiety and obsessive-compulsive symptoms are noted, with ibuprofen initiated for relief, though psychiatric consultation is not currently pursued. Patient was informed and verbally consented to the use of an ambient scribe for clinic note documentation during this visit. Orders: Orders Vitamin D 25-OH Total 3 Months E55.9 - Vitamin D deficiency, unspecified Complete Blood Count Auto Diff 3 Months R63.4 - Abnormal weight loss Phenobarbital 3 Months R56.9 - Unspecified convulsions Lipid Panel 3 Months E78.5 - Hyperlipidemia, unspecified Comprehensive [place]. Panel Fast 3 Months E78.5 - Hyperlipidemia, unspecified Thyroid Stimulating Hormone 3 Months R63.4 - Abnormal weight loss Vitamin B12 and Folate 3 Months E53.8 - Deficiency of other specified B group vitamins Levetiracetam Keppra 3 Months R56.9 - Unspecified convulsions Medications: New imipramine HCl 20 mg (2 x 10 mg) PO BID 120 tabs 6RF 30 days F42.9 - Obsessive-compulsive disorder, unspecified guaifenesin (Litzy-Tussin) 200 mg (10 mL) PO Q4H PRN 1,500 mL 11RF cough 30 days
[2024-09-22 10:06] VITALS: BP 118/70; BMI 21.7
--- OUTSIDE RECORDS SUMMARY | 2024-09-22 11:15 | XMS_ITS | Clinical Summary ---
Author Organization 175 [facility] Address [address] [place] [address] Phone Care Team Providers Care Tier And Detonator Name Role Phone Mago Baker MD Primary Care Provider [phone] Allergies No known active allergies Medications atorvastatin (LIPITOR) 40 mg tablet 5 Active clonazePAM (KlonoPIN) 1 mg tablet 5 Active Vitamin D3 50 mcg (2,000 unit) capsule 5 Active Banophen 25 mg capsule 5 Active FLUoxetine (PROzac) 10 mg capsule 4 Active lacosamide (VIMPAT) 100 mg tablet 5 Active lamoTRIgine (LaMICtal) 200 mg tablet 5 Active lactulose (CHRONULAC) solution 4 Active levETIRAcetam (KEPPRA) 500 mg tablet 5 Active PHENobarbitaL 97.2 mg tablet 5 Active polyethylene glycol (PEG) 17 gram/dose oral powder 5 Active ofloxacin (OCUFLOX) 0.3 % ophthalmic solution 5 Active FLUoxetine (PROzac) 20 mg capsule 5 Active acetaminophen (TYLENOL) 500 mg tablet 4 Active ammonium lactate (AmLactin) 12 % lotionIndicatio ns:Dermatophyto sis, nail Apply topically if needed for dry skin. 400 g 2 5 08/26/19 26 Active ammonium lactate (AmLactin) 12 % lotion Apply topically if needed for dry skin. 400 g 2 5 05/14/20 25 Discontinu ed(Reorder ) Active Problems Problem Noted Date Diagnosed Date Seizure ([facility] V24, [facility] V28) 08/20/2024 Anxiety 08/20/2024 Difficult bowel movements 08/20/2024 Acute conjunctivitis 08/20/2024 History of status epilepticus 08/20/2024 Urine incontinence 08/20/2024 Encounters Date Type Department Care Team Description 08/24/2024 Telephone Orthopedic Surgery [place] [address] [phone] Blayne Castillo DPM Medication 08/20/2024 10:30 AM EDT Consult Orthopedic Surgery [place] [address] [phone] Blayne Castillo DPM Cellulitis of left toe (Primary Dx); Arthritis of both feet; Hammertoes of both feet; Dermatophytosis, nail from Last 3 Months Social History Tobacco Use Types Packs/Day Years Used Date Smoking Tobacco: Never Assessed Comments Unknown Sex and Gender Information Value Date Recorded Sex Assigned at Not on file Legal Sex Female 11:21 AM EDT Gender Identity Not on file Sexual Orientation Not on file Last Filed Vital Signs Vital Sign Reading Time Taken Comments Blood Pressure - - Pulse - - Temperature - - Respiratory Rate - - Oxygen Saturation - - Inhaled Oxygen Concentration - - Weight 65.8 kg (145 lb) 08/20/2024 10:58 AM EDT Height 165.1 cm (5' 5 ) 08/20/2024 10:58 AM EDT Body Mass Index 24.13 08/20/2024 10:58 AM EDT Plan of Treatment Upcoming Encounters Date Type Department Care Team (Late st Contact Info) Description 11/23/2024 11:00 AM EDT Office Visit Orthopedic Surgery [facility] [address] [phone] Blayne Castillo DPM [address] [address] Health Maintenance Due Date Last Done Comments Breast Cancer Screening 1965 Cervical Cancer Screening: Pap Smear 1985 Pneumococcal Vaccine: 50+ Years (1 of 1 - PCV) 2014 DTaP,Tdap,and Td Vaccines (2 - Td or Tdap) 09/09/2022 09/09/2012 Zoster Vaccines (2 of 2) 10/21/2023 08/26/2023 COVID-19 Vaccine (3 - season) 2023 06/08/2020, 05/11/2020 Colorectal Cancer Screening: Colonoscopy 08/04/2024 Depression Screening 08/04/2024 HIV Screening 08/04/2024 Hepatitis C Screening 08/04/2024 Medicare Annual Wellness Visit 08/04/2024 Social Influencers of Health Screening 08/04/2024 RSV Immunization Adult Patients (1 - 1-dose 75+ series) 2039 Influenza Vaccine Completed 02/17/2024, , 02/20/2022, Additional history exists HIB Vaccines Aged Out No longer eligi ble based on patient's age to complete this topic HPV Vaccines Aged Out No longer eligi ble based on patient's age to complete this topic Hepatitis A Vaccines Aged Out No long er eligible based on patient's age to complete this topic Hepatitis B Vaccines Aged Out No long er eligible based on patient's age to complete this topic IPV Vaccines Aged Out No longer eligi ble based on patient's age to complete this topic MMR Vaccines Aged Out No longer eligi ble based on patient's age to complete this topic Meningococcal ACWY Vaccine Aged Out N o longer eligible based on patient's age to complete this topic Meningococcal B Vaccine Aged Out No l onger eligible based on patient's age to complete this topic Pneumococcal Vaccine: Pediatrics (0 to 5 Years) and At-Risk Patients (6 to 64 Years) Aged Out No longer eligible based on patient's age to complete this topic RSV Immunization Patients Under 20 months Aged Out No longer eligible based on patient's age to complete this topic Varicella Vaccines Aged Out No longer eligible based on patient's age to complete this topic Insurance MEDICARE MEDICAID - [place] Care Teams Tier And Detonator Relationship Specialty Start Date End Date Mago Baker MD [address] [facility] , [address] [facility] Physician Associ D/B/A: [facility] [place] PCP - General Internal Medicine 08/03/24
== END 2024-09-22 10:35 | disposition home or self-care (01) ==
LOC: HO.HMCH 10:02
PROVIDERS: PCP Internal Medicine; Visit Provider Internal Medicine
DX: F42.9 Obsessive-compulsive disorder, unspecified (principal); E78.5 Hyperlipidemia, unspecified; R63.4 Abnormal weight loss; R56.9 Unspecified convulsions; F41.9 Anxiety disorder, unspecified

== ENCOUNTER → 2024-09-22 10:01 | Outpatient (BNVA) | payer MEDICARE, MEDICAID, SELFPAY | PROVIDERS: PCP Internal Medicine; Visit Provider Internal Medicine | DX: F42.9 Obsessive-compulsive disorder, unspecified (principal); E78.5 Hyperlipidemia, unspecified; R63.4 Abnormal weight loss; R56.9 Unspecified convulsions; F41.9 Anxiety disorder, unspecified | CPT/HCPCS: 96127; 99212 ==

== ENCOUNTER 2024-10-13 11:17 | Outpatient (AMB) | payer MEDICARE, MEDICAID, SELFPAY ==
--- NOTE | 2024-10-13 11:21 | A.OFFVIS_ITS ---
Vital Signs 10/13/24 11:22 Height 4 ft 8 in Intake Visit Reasons: 5M epilepsy Accompanied by: Staff member Allergies No Known Allergies Allergy (Verified 10/13/24 11:29) Medication List - Last Reconciled 10/13/24 by Katia Patel CNP acetaminophen 500 mg PO Q6H PRN 30 days atorvastatin 40 mg PO BEDTIME 90 days cholecalciferol (vitamin D3) 50 mcg PO DAILY 90 days clonazepam 1 mg PO BEDTIME diaper,brief,adult,disposable As directed diphenhydramine HCl (Banophen) 25 mg PO TID PRN 30 days fluoxetine 20 mg PO DAILY 90 days Gait belt As directed guaifenesin (Litzy-Tussin) 200 mg (10 mL) PO Q4H PRN 30 days imipramine HCl 20 mg (2 x 10 mg) PO BID 30 days lacosamide (Vimpat) 100 mg PO BID lactulose 10 grams (15 mL) PO BID PRN 30 days lamotrigine 200 mg PO BID levetiracetam 500 mg PO BID 30 days miscellaneous medical supply HOSPITAL BED WITH MATTRESS phenobarbital 97.2 mg PO BEDTIME polyethylene glycol 3350 (Miralax) 17 grams PO DAILY PRN 30 days HPI Comments Details: 59 y/o woman with 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 She was here with staff member from [facility]. She was doing okay. No seizures in the last 6 months. Sleep was okay. [facility] Medical History (Updated 10/13/24 @ 11:35 by Katia Patel CNP) Epilepsy Insomnia OCD (obsessive compulsive disorder) Obsessive compulsive disorder Chronic static encephalopathy Resides in [facility] COVID-19 vaccine series completed Seizures Anxiety Chronic idiopathic constipation Difficult bowel movements Screening for breast cancer Screening for colon cancer Screening for diabetes mellitus Screening for hyperlipidemia Incontinence of urine in female Conjunctivitis Mentally challenged Status epilepticus Surgical History H/O tooth extraction Family History Father No problems noted. Mother Diabetes Cancer Social History Household Members Other:: resides in [facility] Housing: Other Housing Other:: [facility] Are you a primary career technical supervisor to a significant other at home: No Do you presently have visiting nurse or other home services: Yes (as above noted) Alcohol intake: never Patient Tobacco Use Status: Never used Tobacco e-Cigarette/Vaping Use: Never Used Second Hand Smoke Exposure: No service: No Current occupational status: disabled Cognitive needs: No Hearing needs: No Vision needs: No Review of Systems Const Denies chills, Denies daytime sleepiness, Denies difficulty sleeping, Denies fatigue, Denies fever(s), Denies frequent falls, Denies headache(s), Denies increased appetite, Denies poor appetite, Denies snoring, Denies weakness, Denies weight gain and Reports weight loss Eyes Denies loss of vision ENT Reports Normal hearing present, Denies vertigo, Denies dizziness and Denies headache(s) Card Denies chest pain at rest, Denies chest pain with activity, Denies leg edema and Denies palpitations Resp Denies snoring GI Denies constipation, Denies heartburn, Denies diarrhea and Denies nausea Denies urinary frequency, Denies urinary incontinence and Denies urinary urgency Musc Denies abnormal gait, Denies numbness and Denies tingling Skin/Breast Denies dry skin and Denies rash Neuro Reports Normal hearing present, Denies abnormal gait, Denies vertigo, Denies dizziness, Denies frequent falls, Denies headache(s), Denies lack of coordination, Denies loss of vision, Denies memory loss, Denies numbness, Denies restless legs, Reports seizure-like activity (None recently), Denies tingling, Denies paresthesias, Denies tremor(s) and Denies weakness Psych Reports anxiety, Denies depression, Denies auditory hallucinations, Denies memory loss, Denies visual hallucinations and Denies suicidal ideation Endo Denies fatigue and Denies palpitations Physical Exam Const Other: General Appearance:? normal, in no acute distress. Skin:? no rashes, no significant birthmarks. Heart:? S1, S2 normal, no murmurs. Lungs:? clear anteriorly and posteriorly. Extremities:? no edema. Psych:? alert, oriented, cognitive function intact, cooperative with exam. Neuro Other: Mental Status:?Alert and awake. Often avoids eye contact. Has difficulty following instructions. Repetitive. Cranial Nerves:?Pupils are equal, round and reactive to light. Face is symmetrical. Tongue is midline. Palate elevates symmetrically. Hearing to bedside conversation is normal. Motor Examination:?Normal muscle tone.?Deep tendon reflexes are 2+ Gait Exam: Slow and cautious. Extrapyramidal System:?No tremor, rigidity with normal facial expressions.? Pronator Drift:?Not present.? Involuntary Movements:?No tremors seen.? Speech:?Normal.? Cranial nerves: Yes Normal hearing present Assessment & Plan Assessment & Plan (1) Epilepsy: Code(s): G40.909 - Epilepsy, unspecified, not intractable, without status epilepticus Category: Medical Qualifiers: Epilepsy type: unspecified Intractability: not intractable Status epilepticus: without status epilepticus Qualified Code(s): G40.909 - Epilepsy, unspecified, not intractable, without status epilepticus Plan: She was here with staff member from [facility]. Seizures were controlled with current medications. Continue levetiracetam 500mg 1 tablet orally twice a day Continue lamotrigine 200mg 1 tablet orally twice a day Continue Vimpat 100mg 1 tablet orally twice a day Continue phenobarbital 97.2mg 1 tablet orally once a day Continue clonazepam 1mg 1 tablet orally at bedtime (2) Chronic static encephalopathy: Code(s): G93.49 - Other encephalopathy Category: Medical Plan: . Plan . Medications: New levetiracetam 500 mg PO BID 60 tabs 5RF 30 days Coding Level of Care Code Est Pt Level 3 (40095) Diagnoses Nonintractable epilepsy without status epilepticus, unspecified epilepsy type G40.909 Epilepsy type: unspecified Intractability: not intractable Status epilepticus: without status epilepticus Chronic static encephalopathy G93.49
--- OUTSIDE RECORDS SUMMARY | 2024-10-13 12:03 | XMS_ITS | Clinical Summary ---
Author Organization 175 [facility] Address [address] [place] [address] Phone Care Team Providers Care Design Maker Name Role Phone Mago Baker MD Primary Care Provider [phone] Allergies No known active allergies Medications atorvastatin [...] 400 g 2 5 08/26/19 26 Active Active Problems Problem Noted Date Diagnosed Date Seizure (CMS/HCC V24, CMS/HCC V28) 08/20/2024 Anxiety 08/20/2024 Difficult bowel movements 08/20/2024 Acute conjunctivitis 08/20/2024 History of status epilepticus 08/20/2024 Urine incontinence 08/20/2024 Encounters Date Type Department Care Team Description 08/24/2024 Telephone Orthopedic Surgery [facility] [address] [phone] Blayne Castillo DPM Medication 08/20/2024 10:30 AM EDT Consult Orthopedic Surgery [facility] [address] [phone] Blayne Castillo DPM Cellulitis of left toe [...] 11:00 AM EDT Office Visit Orthopedic Surgery [facility] [address] [phone] Blayne Castillo DPM [address] [address] Health Maintenance Due Date Last Done Comments [...] Insurance MEDICARE MEDICAID - [place] Care Teams Design Maker Relationship Specialty Start Date End Date Mago Baker MD [address] [place] [address] , [address] [facility] Physician Associ D/B/A: [facility] [place] PCP - General Internal Medicine 08/03/24
--- OUTSIDE RECORDS SUMMARY | 2024-10-13 12:04 | XMS_ITS | Patient Health Record ---
Author Organization [facility] Address [address] [place] [address] Care Team Providers Care Inking Machine Tender Name Role Phone Bony JUAREZ, Asma Primary Care Provider Yusuf Bains [phone] Allergies No Known Allergies Reason For Referral No Information Medications Medication SIG (Take, Route, Frequency, Duration) Notes Start Date End Date Status Lactulose 10 GM 1 packet as needed O rally Once a day Active clonazePAM 1 MG Oral for 30 Ac tive lamoTRIgine 200 MG 1 tablet Orally twic e a day Active Ensure - as directed Orally A ctive Acetaminophen 500 MG 1 capsule as needed Orally every 6 hrs Active Vitamin D-3 25 MCG (1000 UT) 1 capsule Orally Once a day Active Ammonium Lactate 12 % 1 application Exte rnally Twice a day Active Vimpat 100 MG Oral for 30 Acti ve Banophen 25 MG 1 tablet at bedtime as needed Orally Once a day Active PHENobarbital 97.2 MG Oral for 30 Active MiraLax (colon prep) 17 GM/SCOOP 1 238 Gm bottle mixed with Gatorade or Crystal Light orally begin at 5:00 p.m. the day before the procedure for 1 days 10/09/2024 Active Fycompa 2 MG Oral for 30 Activ e levETIRAcetam ER 500 MG 1 tablet Orally Once a day Active Dulcolax (colon prep) 5 MG take 2 tablet s at 3:00 p.m and 7:00p.m. Orally two tablets twice a day for one day for 1 days 10/09/2024 Active Lacosamide 100 MG 1 tablet Orally Twic e a day Active Atorvastatin Calcium 40 MG 1 tablet Oral ly Once a day Active LORazepam 0.5 MG Oral for 30 A ctive Polyethylene Glycol - as directed Active FLUoxetine HCl 10 MG Oral for 30 Active Immunizations Vaccine Route Administration Date Status Comme nts Influenza Unknown 12/13/2020 Administered Influenza Unknown 01/06/2024 Administered Social History Tobacco Use: Social History Observation Description Date Details (start date - stop date) Never Smoker NA - NA Tobacco Use/Smoking Question Answer Notes Patient is a nonsmoker Alcohol Screen Question Answer Notes Did you have a drink containing alcohol in the p ast year? No Points 0 Interpretation Negative Section Notes: Nonsmoker; no alcohol Buzz Rojas, brother [phone] Tori Escobedo Direct Marketing Representative [phone] Nonsmoker; no alcohol mike Valdezer [phone] Lesley Eden Direct Marketing Representative [phone] Problems Problem Type SNOMED Code ICD Code Onset Dates Problem Status W/U Status Risk Notes Problem 013092329 Encounter for screening for malignant neoplasm of colon (Z12.11) Active confirmed Problem 026049462503071 Preprocedural examination (Z01.818) Active confirmed Problem 42763969 Constipation, unspecified constipation type (K59.00) Active confirmed Problem Diverticulosis of colon (429928724) Diverticulosis of colon (K57.30) Active confirmed Problem Tubulovillous adenoma of colon (3821543358) Tubulovillous adenoma of colon (D12.6) Active confirmed Vital Signs Temperature 97.5 degrees Fahrenheit 09/30/2024 Blood pressure diastolic 01 mm Hg 09/30/2024 Height 58 in 09/30/2024 Blood pressure systolic 001 mm Hg 09/30/2024 Weight 120 lbs 09/30/2024 BMI 25.08 kg/m2 09/30/2024 Procedures Procedure Date Ordered Date Performed Result Body Sit e COLONOSCOPY 09/30/2024 N/A Encounters Encounter Location Date Provider Diagnosis [facility] [address] [place] [address] 09/30/2024 Yusuf Barraza Preprocedural examination Z01.818 ; Encounter for screening for malignant neoplasm of colon Z12.11 and Tubulovillous adenoma of colon D12.6 [facility] [address] [place] [address] 05/26/2024 Yusuf Barraza [facility] [address] [place] [address] 09/30/2024 Yusuf Barraza Assessments Encounter Date Diagnosis (ICD Code) Assessment Notes Treatment Notes Treatment Clinical Notes Section Notes 09/30/2024 Encounter for screening for malignant neoplasm of colon (ICD-10 - Z12.11) Overall, Graeme appears quite well. She is not having any new or worrisome GI complaints. Given the previous history of tubulovillous adenomas removed from the cecum 3 years ago, I did recommend a follow-up colonoscopy for further screening purposes. Full consent will be obtained from her brother Buzz, as it had been in the past, as he is her legal guardian in relation to her cognitive issues. The procedure will be done with monitored anesthesia care. Thank you again for allowing me to participate in Graeme's care. I shall continue to keep you advised of her progress. 09/30/2024 Preprocedural examination (ICD-10 - Z01.818) Overall, Graeme appears quite well. She is not having any new or worrisome GI complaints. Given the previous history of tubulovillous adenomas removed from the cecum 3 years ago, I did recommend a follow-up colonoscopy for further screening purposes. Full consent will be obtained from her brother Buzz, as it had been in the past, as he is her legal guardian in relation to her cognitive issues. The procedure will be done with monitored anesthesia care. Thank you again for allowing me to participate in Graeme's care. I shall continue to keep you advised of her progress. 09/30/2024 Tubulovillous adenoma of colon (ICD-10 - D12.6) Overall, Graeme appears quite well. She is not having any new or worrisome GI complaints. Given the previous history of tubulovillous adenomas removed from the cecum 3 years ago, I did recommend a follow-up colonoscopy for further screening purposes. Full consent will be obtained from her brother Buzz, as it had been in the past, as he is her legal guardian in relation to her cognitive issues. The procedure will be done with monitored anesthesia care. Thank you again for allowing me to participate in Gramee's care. I shall continue to keep you advised of her progress. Plan Of Treatment Pending Test Test Name Order Date COLONOSCOPY 09/30/2024 Future Test Test Name Order Date COLONOSCOPY 06/26/2021 Next Appt Details Provider Name:Yusuf Barraza , 12/22/2024 11:30:00 AM, [address] [facility] , [place], [place], [id number], Provider Name:Yusuf Barraza , 01/12/2025 02:00:00 PM, [address] [place] [address], [address], [place], [address], Insurance Providers Payer Name Payer Address Payer Phone Subscriber Number Group Number Insured Name Patient Relationship to Insured Coverage Start Date Coverage End Date MEDICARE OF [place] [address] [place] [address] [id number] GRAEME ROJAS Self - patient is the insured MEDICAID OF [facility] [address] [place] [address] [id number] GRAEME ROJAS Self - patient is the insured Medical (General) History Medical History History ICD Code Cognitive delay Seizures OCD Insomnia Screening colonoscopy in August 2021--2 tubulovillous adenomas removed from the cecum. Consent have been obtained from her brother Buzz, who is her legal guardian Surgical History Surgery Date(Month/Year) Oral surgery
== END 2024-10-13 11:42 | disposition home or self-care (01) ==
PROVIDERS: PCP Internal Medicine; Referring Provider Internal Medicine; Visit Provider Registered Nurse
DX: G40.909 Epilepsy, unspecified, not intractable, without status epilepticus (principal); G93.49 Other encephalopathy
CPT/HCPCS: 99213

== ENCOUNTER → 2024-10-13 11:17 | Outpatient (BNVA) | payer MEDICARE, MEDICAID, SELFPAY | PROVIDERS: PCP Internal Medicine; Referring Provider Internal Medicine; Visit Provider Registered Nurse | DX: G40.804 Other epilepsy, intractable, without status epilepticus (principal); G93.49 Other encephalopathy; Z79.899 Other long term (current) drug therapy | CPT/HCPCS: 99212 ==

== ENCOUNTER 2024-11-01 08:54 | Outpatient (AMB) | payer MEDICARE, MEDICAID, SELFPAY ==
--- NOTE | 2024-11-01 08:56 | A.OFFPC_ITS ---
Vital Signs 11/01/24 08:58 Height 4 ft 8 in Weight 101 lb 10.13 oz BMI 22.8 BP 118/78 Blood Pressure Location Lt brachial Position Sitting Intake Visit Reasons: [facility] [place] 09/27 Double Cut Off Saw Operator Required: No Accompanied by: Self / Same As Patient Allergies No Known Allergies Allergy (Verified 11/01/24 09:37) Medication List - Last Reconciled 11/01/24 by Mago Baker MD acetaminophen 500 mg PO Q6H PRN 30 days atorvastatin 40 mg PO BEDTIME 90 days cholecalciferol (vitamin D3) 50 mcg PO DAILY 90 days clonazepam 1 mg PO BEDTIME diaper,brief,adult,disposable As directed diphenhydramine HCl (Banophen) 25 mg PO TID PRN 30 days fluoxetine 20 mg PO DAILY 90 days Gait belt As directed guaifenesin (Litzy-Tussin) 200 mg (10 mL) PO Q4H PRN 30 days imipramine HCl 20 mg (2 x 10 mg) PO BID 30 days lacosamide (Vimpat) 100 mg PO BID lactulose 10 grams (15 mL) PO BID PRN 30 days lamotrigine 200 mg PO BID levetiracetam 500 mg PO BID 30 days miscellaneous medical supply HOSPITAL BED WITH MATTRESS phenobarbital 97.2 mg PO BEDTIME polyethylene glycol 3350 (Miralax) 17 grams PO DAILY PRN 30 days Tobacco use date assessed: 04/15/24 Dental Screening Dental Screen Date: 04/15/24 HPI HPI Comments History of Present Illness Details The patient is a 59-year-old female presenting with a follow-up after a fall. She fell about a month ago but denies any neurological deficit. Did not lost consciousness. Went to urgent care and physical exam was within normal limits. She has a history of seizure disorder, which is managed with Vimpat, Lamictal, Keppra, and phenobarbital, and she has not experienced any seizures recently, marking the longest period without seizures in four years. She does have intellectual disability and all he she says is how are you, wonderful and good job. Lives in a home and is accompanied by staff member. The patient also has a history of constipation, for which she uses lactulose and MiraLAX as needed. She is on atorvastatin for hyperlipidemia and takes clonazepam and fluoxetine for anxiety management. She does not smoke or consume alcohol. The fall occurred approximately one month ago when she was pulling on a blanket, causing her to fall backward and make contact with the bed, but she did not sustain any significant injuries. [facility] Medical History Epilepsy Insomnia OCD (obsessive compulsive disorder) Obsessive compulsive disorder Chronic static encephalopathy Resides in halfway care facility COVID-19 vaccine series completed Seizures Anxiety Chronic idiopathic constipation Difficult bowel movements Screening for breast cancer Screening for colon cancer Screening for diabetes mellitus Screening for hyperlipidemia Incontinence of urine in female Conjunctivitis Mentally challenged Status epilepticus Surgical History H/O tooth extraction Family History Father No problems noted. Mother Diabetes Cancer Social History Household Members Other:: resides in skilled nursing Housing: Other Housing Other:: skilled nursing Are you a primary care director to a significant other at home: No Do you presently have visiting nurse or other home services: Yes (as above noted) Alcohol intake: never Patient Tobacco Use Status: Never used Tobacco e-Cigarette/Vaping Use: Never Used Second Hand Smoke Exposure: No service: No Current occupational status: disabled Cognitive needs: No Hearing needs: No Vision needs: No Questionnaire Thrive Questionnaire Date Thrive assessed: 09/22/24 I am a: Parent/Caregiver What is your living situation today?: I have a steady place to live Within the past 12 months, did the food you bought not last and you didn't have the money to get more?: I choose not to answer this question Within the past 12 months, did you worry whether your food would run out before you got money to buy more?: I choose not to answer this question Do you have trouble paying for medicines?: I choose not to answer this question Do you have trouble getting transportation to medical appointments?: I choose not to answer this question Do you have trouble paying your heating and electricity bill?: I choose not to answer this question Do you have trouble taking care of your child, family member or friend?: I choose not to answer this question Do you have trouble with day-to-day activities such as bathing, preparing meals, shopping, managing finances, etc.?: I choose not to answer this question Are you currently unemployed and looking for a job?: I choose not to answer this question Are you interested in more education?: I choose not to answer this question Please select the resources that you would like help with: None Currently or been in a relationship where the following occur: I choose not to answer THRIVE Score: 0 JAMES-7 AMB Questionnaire JAMES-7 Date JAMES - 7 assessed: 09/22/24 Source: Developed by Drs. Yusuf Landin, Abi Gallardo, Deyvi Lomeli and colleagues, with an educational javi from [employer]. Review of Systems Const All systems reviewed & are unremarkable except as noted in HPI and below Card Denies chest pain at rest, Denies chest pain with activity, Denies edema, Denies irregular heart rhythm, Denies claudication, Denies dyspnea, Denies dyspnea on exertion, Denies orthopnea, Denies paroxysmal nocturnal dyspnea and Denies slow heart rate Resp Denies cough, Denies dyspnea and Denies dyspnea on exertion GI Denies abdominal pain, Denies change in bowel habits, Denies excessive flatus, Denies nausea and Denies vomiting Denies urinary incontinence, Denies urinary hesitancy and Denies urinary urgency Neuro Denies lack of coordination Physical exam (Primary Care) Vital Signs: Last Vital Signs BP 118/78 11/01/24 08:58 BMI result Body Mass Index 22.8 Tobacco/Smoking Status: Tobacco use Status Tobacco use date assessed 04/15/24 11/01/24 09:01 Patient Tobacco Use Status Never used Tobacco 11/01/24 09:01 e-Cigarette/Vaping Use Never Used 11/01/24 09:01 Thrive Assessment: Date of Thrive Assessment Date Thrive assessed 09/22/24 11/01/24 09:01 Currently or been in a relationship where the following occur: I choose not to answer HENNC Head: Yes normal to inspection, Yes normocephalic and Yes atraumatic Resp Effort & Inspection: normal respiratory effort Auscultation: clear to auscultation bilaterally Cardio Jugular venous distension: no JVD Rate: regular rate Rhythm: regular rhythm Heart sounds: S1 normal heart sound present and S2 normal heart sound present Extrem General: Yes full ROM Coding Level of Care Code Est Pt Level 4 (36460) Complex EM visit Add On G2211 Diagnoses Status post fall Z91.81 Anxiety F41.9 Dyslipidemia E78.5 Seizures R56.9 Chronic idiopathic constipation K59.04 Time Spent (min) 21 Assessment & Plan Assessment & Plan (1) Status post fall: Code(s): Z91.81 - History of falling Category: Medical (2) Anxiety: Code(s): F41.9 - Anxiety disorder, unspecified Category: Medical (3) Dyslipidemia: Code(s): E78.5 - Hyperlipidemia, unspecified Category: Medical (4) Seizures: Comment: last seizure 06/26/21-full body tremors-lasted 10 seconds Code(s): R56.9 - Unspecified convulsions Category: Medical (5) Chronic idiopathic constipation: Code(s): K59.04 - Chronic idiopathic constipation Category: Medical Plan The patient will continue her current medication regimen for seizure disorder, including Vimpad, Lamictal, Keppra, and phenobarbital, as she has not experienced any recent seizures. She will also maintain her use of lactulose and MiraLAX for constipation management. For anxiety, she will continue taking clonazepam and fluoxetine. Her atorvastatin therapy for hyperlipidemia will be ongoing. She is scheduled for a physical examination and blood work in December to monitor her overall health status. Patient was informed and verbally consented to the use of an ambient scribe for clinic note documentation during this visit.
[2024-11-01 08:58] VITALS: BP 118/78; BMI 22.8
--- OUTSIDE RECORDS SUMMARY | 2024-11-01 09:04 | XMS_ITS | Clinical Summary ---
Author Organization [address] [facility] Address [address] [place] [address] Phone Care Team Providers Care Manager Bridge Name Role Phone Mago Baker MD Primary Care Provider [phone] Allergies No known active allergies Medications atorvastatin [...] Care Team Description 08/24/[address] [facility] [address] [address] Blayne Castillo DPM Medication 08/20/2024 10:30 AM EDT Consult Orthopedic Surgery [facility] [address] [address] Blayne Castillo DPM Cellulitis of left toe [...] 11:00 AM EDT Office Visit Orthopedic Surgery [facility] [address] [address] Blayne Castillo DPM [address] [address] Health Maintenance Due Date Last Done Comments [...] 08/04/2024 Social Influencers of Health Screening 08/04/2024 Influenza Vaccine (#1) 2024 , 02/03/2023, 02/20/2022, Additional history exists RSV Immunization Adult Patients (1 - 1-dose 75+ series) 2039 HIB Vaccines Aged Out No longer eligi [...] Insurance MEDICARE MEDICAID - [place] Care Teams Manager Bridge Relationship Specialty Start Date End Date Mago Baker MD [address] [facility] , [address] [facility] D/B/A: [facility] ANICETO Cook PCP - General Internal Medicine 08/03/24
--- OUTSIDE RECORDS SUMMARY | 2024-11-01 09:05 | XMS_ITS | Patient Health Record ---
Author Organization [facility] Address [address] [place] [address] Care Team Providers Care Drag Out Man Name Role Phone Bony JUAREZ, [facility] Primary Care Provider Yusuf Bains [phone] Allergies No Known Allergies Reason For Referral [...] Notes: Nonsmoker; no alcohol Buzz Rojas, brother [phone] Lesley Eden Crane Chaser [phone] Nonsmoker; no alcohol Buzz Rojas brother [phone] Tori Escobedo Crane Chaser [phone] Problems Problem Type SNOMED Code ICD Code Onset Dates Problem Status W/U Status Risk Notes Problem 518773698 Encounter for screening for malignant neoplasm of colon (Z12.11) Active confirmed Problem 046324275873468 Preprocedural examination (Z01.818) Active confirmed Problem 09134271 Constipation, unspecified constipation type (K59.00) Active confirmed Problem Diverticulosis of colon (022610064) Diverticulosis of colon (K57.30) Active confirmed Problem Tubulovillous adenoma of colon (D12.6) Active confirmed Vital Signs Temperature 97.5 degrees Fahrenheit 09/30/2024 Blood pressure diastolic 01 mm Hg 09/30/2024 Height 58 in 09/30/2024 Blood pressure systolic 001 mm Hg 09/30/2024 Weight 120 lbs 09/30/2024 BMI 25.08 kg/m2 09/30/2024 Procedures Procedure Date Ordered Date Performed Result Body Sit e COLONOSCOPY 09/30/2024 N/A Encounters Encounter Location Date Provider Diagnosis [facility] [address] [place] [address] 09/30/2024 Yusuf Barraza Preprocedural examination Z01.818 ; Tubulovillous adenoma of colon D12.6 and Encounter for screening for malignant neoplasm of colon Z12.11 [facility] [address] [place] [address] 05/26/[address] [facility] [address] [place] [address] 09/30/2024 Yusuf Barraza Assessments Encounter Date Diagnosis (ICD Code) Assessment Notes Treatment Notes Treatment Clinical Notes Section Notes 09/30/2024 Preprocedural examination (ICD-10 - Z01.818) Overall, [...] keep you advised of her progress. 09/30/2024 Encounter for screening for malignant neoplasm [...] Name:Yusuf Barraza , 12/22/2024 11:30:00 AM, [address] [facility] , [place], [place], [id number], Provider Name:Yusuf Barraza , 01/12/2025 02:00:00 PM, [address] [place] [address], [address], [place], [address], Insurance Providers Payer Name Payer Address Payer Phone Subscriber Number Group Number Insured Name Patient Relationship to Insured Coverage Start Date Coverage End Date MEDICARE OF [place] [address] [place] [address] [id number] GRAEME ROJAS Self - patient is the insured MEDICAID OF [facility] [address] [place] [address] [id number] GRAEME ROJAS Self - patient is the insured Medical (General) History Medical History History ICD Code Cognitive delay Seizures OCD Insomnia Screening colonoscopy in August 2021--2 tubulovillous adenomas removed from the cecum. Consent have been obtained from her brother Buzz, who is her legal guardian Surgical History Surgery Date(Month/Year) Oral surgery
== END 2024-11-01 09:43 | disposition home or self-care (01) ==
LOC: HO.HMCH 08:55
PROVIDERS: PCP Internal Medicine; Visit Provider Internal Medicine
DX: Z91.81 History of falling (principal); F41.9 Anxiety disorder, unspecified; E78.5 Hyperlipidemia, unspecified; R56.9 Unspecified convulsions; K59.04 Chronic idiopathic constipation

== ENCOUNTER → 2024-11-01 08:54 | Outpatient (BNVA) | payer MEDICARE, MEDICAID, SELFPAY | PROVIDERS: PCP Internal Medicine; Visit Provider Internal Medicine | DX: Z91.81 History of falling (principal); F41.9 Anxiety disorder, unspecified; E78.5 Hyperlipidemia, unspecified; R56.9 Unspecified convulsions; K59.04 Chronic idiopathic constipation | CPT/HCPCS: 99212 ==

== ENCOUNTER 2024-11-03 10:18 | Outpatient (REF) | payer MEDICARE, MEDICAID, SELFPAY ==
--- NOTE | ~2024-11-03 | FL_ITS ---
EXAMINATION: Modified Barium Swallow CLINICAL INFORMATION: Dysphagia. COMPARISON: None. TECHNIQUE: Modified barium swallow was performed under lateral fluoroscopy with patient in standing position. Barium mixed with solids and liquids of different consistencies was administered by the speech pathologist. Examination was recorded in the fluoroscopy suite. FINDINGS: There was flash penetration without aspiration noted on thin liquids. No aspiration was evident on any consistency. FLUOROSCOPY TIME: 1 minute, 13 seconds Number of Spot Images: N/A DOSE AREA PRODUCT: 917.7 uGy-m2 (microgray-meter squared) FL/FL Modified Barium Swallow IMPRESSION: Flash penetration without aspiration noted on thin liquids. Refer to the full speech therapy report to follow for further detail. Electronically signed by: Santiago Barrera MD 11/03/2024 10:58 AM EDT
--- OUTSIDE RECORDS SUMMARY | 2024-11-03 11:18 | XMS_ITS | Clinical Summary ---
Author Organization [address] [facility] Address [address] [place] [address] Phone Care Team Providers Care Director Of Sales Support Name Role Phone Mago Baker MD Primary Care Provider [phone] Allergies No known active allergies Medications atorvastatin [...] Care Team Description 08/24/2024 Telephone Orthopedic Surgery [facility] [address] [address] Blayne Castillo DPM Medication 08/20/2024 10:30 AM EDT Consult Orthopedic Surgery [facility] [address] [address] Blayne Castillo DPM Cellulitis of left toe [...] 11:00 AM EDT Office Visit Orthopedic Surgery [facility] [address] [address] Blayne Castillo DPM [address] [address] Health Maintenance Due Date Last Done Comments Breast Cancer Screening 1965 Cervical Cancer Screening: Pap Smear 1985 Pneumococcal Vaccine: 50+ Years (1 of 1 - PCV) 2014 DTaP,Tdap,and Td Vaccines (2 - Td or Tdap) 09/09/2022 09/09/2012 Zoster Vaccines (2 of 2) 10/21/2023 08/26/2023 COVID-19 Vaccine (3 - season) 2023 06/08/2020, 05/11/2020 Depression Screening 04/14/2024 Colorectal Cancer Screening: Colonoscopy 08/04/2024 HIV Screening 08/04/2024 Hepatitis C Screening [...] Insurance MEDICARE MEDICAID - [place] Care Teams Director Of Sales Support Relationship Specialty Start Date End Date Mago Baker MD [address] [facility] , [address] [facility] D/B/A: [facility] ANICETO Cook PCP - General Internal Medicine 08/03/24
--- OUTSIDE RECORDS SUMMARY | 2024-11-03 11:19 | XMS_ITS | Patient Health Record ---
Author Organization [facility] Address [address] [place] [id number] Care Team Providers Care Installation Technician Name Role Phone Bony JUAREZ, Asma Primary Care Provider Yusuf Bains [phone] Allergies No Known Allergies Reason For Referral [...] Notes: Nonsmoker; no alcohol Buzz Rojas, brother [phone] Lesley Eden Stacker And Sorter Operator [phone] Nonsmoker; no alcohol Buzz Rojas, brother [phone] Tori Escobedo Stacker And Sorter Operator [phone] Problems Problem Type SNOMED Code ICD Code Onset Dates Problem Status W/U Status Risk Notes Problem 756264216 Encounter for screening for malignant neoplasm of colon (Z12.11) Active confirmed Problem 129134208762140 Preprocedural examination (Z01.818) Active confirmed Problem 40087773 Constipation, unspecified constipation type (K59.00) Active confirmed Problem Diverticulosis of colon (982327717) Diverticulosis of colon (K57.30) Active confirmed Problem Tubulovillous adenoma of colon (3474850047) Tubulovillous adenoma of colon (D12.6) Active confirmed Vital Signs Temperature 97.5 degrees Fahrenheit 09/30/2024 Blood pressure diastolic 01 mm Hg 09/30/2024 Height 58 in 09/30/2024 Blood pressure systolic 001 mm Hg 09/30/2024 Weight 120 lbs 09/30/2024 BMI 25.08 kg/m2 09/30/2024 Procedures Procedure Date Ordered Date Performed Result Body Sit e COLONOSCOPY 09/30/2024 N/A Encounters Encounter Location Date Provider Diagnosis [facility] [address] [place] [address] 09/30/2024 Yusuf Barraza Preprocedural examination Z01.818 ; Tubulovillous adenoma of colon D12.6 and Encounter for screening for malignant neoplasm of colon Z12.11 [facility] [address] [place] [address] 05/26/2024 Yusuf Barraza [facility] [address] [place] [address] 09/30/2024 Yusuf Barraza Assessments Encounter Date Diagnosis [...] Name:Yusuf Barraza , 12/22/2024 11:30:00 AM, [address] [facility] , [place], [place], [id number], Provider Name:Yusuf Barraza , 01/12/2025 02:00:00 PM, [address] [place] [address], [address], [place], [address], Insurance Providers Payer Name Payer Address Payer Phone Subscriber Number Group Number Insured Name Patient Relationship to Insured Coverage Start Date Coverage End Date [place]ARE OF [place] [address] [place] [address] [phone] [id number] GRAEME ROJAS Self - patient is the insured MEDICAID OF [facility] [address] [place] [address] [id number] GRAEME ROJAS Self - patient is the insured Medical (General) History Medical History History ICD Code Cognitive delay Seizures OCD Insomnia Screening colonoscopy in August 2021--2 tubulovillous adenomas removed from the cecum. Consent have been obtained from her brother Buzz, who is her legal guardian Surgical History Surgery Date(Month/Year) Oral surgery
--- NOTE | 2024-11-03 13:23 | MHC.SL.IMP ---
Date of Plan of Treatment: 11/03/24 Onset of Symptoms/Illness: 08/09/24 Date Treatment Started: 11/03/24 Admitting Diagnosis: Intellectual disability Primary Speech & Language Diagnosis: R13.12 Oropharyngeal Phase Dysphagia Reason for Today's Visit: 68866 Modified Barium Swallow Study Pre-evaluation Dietary Consistencies: Cut up Pre-evaluation Liquid Consistency: Thin Pre-evaluation Medication Administration: Whole with Liquid Medical History: Modified Barium Swallow Study Fluoroscopic Evaluation of Swallowing Function CPT Code 00336 Evaluation Year: 2024 Reason for Study: Difficulty swallowing Referring Physician: Mago Baker MD Evaluating Clinician: Kim Hankins MA, CCC-TEXTILE TECHNICAL OFFICER Study Number: 1 Patient Name: Mary Beth Rojas Status: Outpatient, Ambulatory/Assisted Age: 59 Sex: Female Medical History Medical History Epilepsy Insomnia OCD (obsessive compulsive disorder) Obsessive compulsive disorder Chronic static encephalopathy 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 Liquid Consistencies: Thin Pre-Study Functional Oral Intake Scale (FOIS): 5- Total oral intake of multiple consistencies requiring special preparation Pain: None reported at time of study SUBJECTIVE: Patient is a 59 year old female with intellectual disability and history of epilepsy, OCD, chronic static encephalopathy, and chronic constipation. Patient resides in a LTC facility in [place] and was accompanied to this exam by a staff member from the facility. This staff member reports that patient drinks regular thin liquids and has all her food cut up into small pea-size pieces. She reportedly does well feeding herself, but needs some assistance with tray set up and at times throughout meal time. Staff does not report any concerning overt symptoms related to patient?s swallow and believes patient may have had an MBSS done in the past. Patient reportedly takes her pills whole with liquid without issue. Oral Motor Exam Facial Symmetry: Symmetrical Mouth Occlusion: Normal Oral-Facial Teeth Characteristics: Edentulous Oral-Facial Teeth Miscellaneous Observation: Per staff, patient does not have dentures Oral-Facial Smile (Lips) Description: Normal Tongue Size: Normal Is patient able to manage secretions?: Yes Food and Liquid Trials: Oral Impairment: Lip Closure: 0=No labial escape Oral Impairment: Tongue Control During Bolus Hold: 0=Cohesive bolus between tongue to palatal seal Oral Impairment: Bolus Preparation/Mastication: 2=Disorganized chewing/mashing with solid pieces of bolus Oral Impairment: Bolus Transport/Lingual Motion: 1= Delayed initiation of tongue motion Oral Impairment: Oral Residue: 2=Residue collection on oral structures Oral Impairment:Initiation of Pharyngeal Swallow: 2=Bolus head at posterior laryngeal surface of epiglottis Pharyngeal Impairment: Soft Palate Elevation: 1=Trace column of contrast or air between SP and PW Pharyngeal Impairment: Laryngeal Elevation: 1=Partial thyroid cartilage/arytenoids to epiglottic petiole movement Pharyngeal Impairment: Anterior Hyoid Excursion: 1=Partial anterior movement Pharyngeal Impairment: Epiglottic Movement: 0=Complete inversion Pharyngeal Impairment: Laryngeal Vestibular Closure:: 1=Incomplete: narrow column air/contrast in laryngeal vestibule Pharyngeal Impairment: Pharyngeal Stripping Wave: 0=Present: complete Pharyngeal Impairment: Pharyngeal Contraction: Did not test Pharyngeal Impairment: Pharyngoesophageal Segment Openin=Complete distension and complete duration: no obstruction of flow Pharyngeal Impairment: Tongue Base (TB) Retraction: 0=No contrast between tongue base and posterior pharyngeal wall Pharyngeal Impairment: Pharyngeal Residue: 1=Trace residue within or on pharyngeal structures Pharyngeal Impairment: Esophageal Clearance Upright Position: Did not test Impressions and Recommendations OBJECTIVE: Time-out: performed at 10:45 Evaluation Start: 10:30; Stop: 10:40 Patient Positioning: Seated 70-90 degrees Viewing Planes: LATERAL ONLY Contrast: MBSImP? Standardized Protocol using commercially prepared, standardized Barium viscosities, including: Varibar? THIN LIQUID (40% w/v, <15 cps) , Varibar? PUDDING (40% w/v, <5347-1268 cps) , 1/2 Shortbread Cookie (1 x1 x.25 ) MBSImP ID: [id number] MBSImP Results: Lip closure for intraoral bolus containment resulted in no labial escape. Tongue control during bolus hold maintained a cohesive bolus held between tongue to palate seal. Bolus preparation and mastication demonstrated disorganized chewing/mashing with solid pieces of the bolus unchewed. Bolus transport/lingual motion demonstrated delayed initiation of tongue motion. Oral residue was a collection on oral structures. Initiation of the pharyngeal swallow occurred as the bolus head was at the posterior laryngeal surface of the epiglottis. Soft palate elevation allowed a trace column of contrast or air between the soft palate and the pharyngeal wall. Laryngeal elevation was decreased, with partial superior movement of the thyroid cartilage/partial approximation of the arytenoids to the epiglottic petiole. Anterior hyoid excursion demonstrated partial anterior movement. Epiglottic movement resulted in complete inversion. Laryngeal vestibular closure was incomplete, with a narrow column of air/contrast noted within the laryngeal vestibule at the height of the swallow. Pharyngeal stripping wave was present and complete. Pharyngeal contraction could not be determined due to logistical reasons not related to physiologic impairment. Pharyngoesophageal segment opening was completely distended for complete duration with no obstruction of bolus flow. Tongue base retraction allowed no contrast between the retracted tongue base and the posterior pharyngeal wall. Pharyngeal residue was a trace within or on pharyngeal structures. Esophageal clearance in the upright position could not be assessed due to logistical reasons not related to physiologic impairment. Oral Impairment Score: 7 Pharyngeal Impairment Score: 4 (absence of score, component 13) Esophageal Impairment Score: --- (absence of score, component 17) Laryngeal Penetration and Aspiration: Neither penetration nor aspiration was observed in today's study with Cookie, Pudding-thick. Penetration was observed in today's study. Thin Contrast entered the airway, remained above the vocal folds, and was ejected from the airway. ASSESSMENT: This exam was performed by the radiologist and the speech pathologist. Patient was seated upright in a chair for lateral view only. Patient fed herself when handed utensils and trialed the following consistencies: Thin liquid (via rapid, sequential cup sips) Puree (mixture applesauce w/ barium pudding) Regular solid (shortbread cookie coated in barium pudding) Adequate lip closure and good lingual control with good oral containment of bolus. AP transport was mildly delayed. Mastication was disorganized on regular solid, note solid, partially chewed pieces of bolus which were swallowed whole. Also note piece meal clearing of the oral cavity. Patient chewed, swallowed partial bolus, continued chewing remaining bolus, and swallowed again until the oral cavity was cleared. Complete clearance noted on liquid and semi-solid. Pharyngeal swallow trigger initiated as the bolus head reached the posterior laryngeal surface of the epiglottis. There was trace contrast escaping between the soft palate and pharyngeal wall, no escape to the nasopharynx. Partial laryngeal elevation with complete epiglottic inversion, but partial laryngeal vestibular closure. There was trace penetration seen episodically on rapid sequential sips of thin liquid. A trace amount of contrast entered the airway above the vocal folds, and immediately and spontaneously cleared from the airway. No evidence of aspiration during this exam. Very trace residue on the tongue base and in the valleculae completely cleared with subsequent swallows. The following compensatory strategies have not been used until today's study, but when employed, improved swallowing function: Additional Swallow(s) per Bolus eliminated Oral Residue, Pharyngeal Residue Liquid Intake Recommendation: Thin Liquid Intake Strategies: Small Sips Dietary Recommendations: Minced and Moist Medication Administration: Whole with Liquid Please contact the pharmacy regarding appropriate crushable or liquid drug formulations that are available whenever modified delivery is recommended. Compensatory Strategies Recommended: Sitting Upright (90 deg), Small Bites and Sips, Alternate Liquids/Solids, Rate of Ingestion Change, Avoid Specific Foods Supervision during eating and or drinking: Direct Supervision (1:1) Recommended Treatments: Compens. Strategy Educat. Recommendation for Speech Therapy: Outpatient Speech Therapy Text Comment: Intake Recommendations: Route: PO Diet Grade: IDDSI Levels: 5-Minced & Moist Liquid Consistencies: Thin Post-Study Functional Oral Intake Scale (FOIS): 5- Total oral intake of multiple consistencies requiring special preparation Patient presents with mild oropharyngeal dysphagia, with more notable impairments of the oral phase, likely secondary to edentulous status, including disorganized chewing pattern, piece meal clearing, swallowing of whole pieces of food, and delayed AP transport. Risk of aspiration associated with reduced cognitive status secondary to underlying intellectual disability. There was flash penetration seen on sequential sips of thin liquid intermittently. No evidence of aspiration during this exam. Good pharyngeal clearance. Recommend MINCED AND MOIST diet (IDDSI 5) for ease of mastication (equivalent to GROUND/MECHANICALLY ALTERED (NDD2)) and THIN liquids. Per LTC staff, patient does well taking her pills whole with liquid. The following strategies are recommended to maximize safety: -Take small bites of food -Remind patient as needed to chew food well -Moisten food w/ sauces/gravies -Alternate bite of food with sip of liquid -Wait to take another bite of food until the oral cavity is cleared -Ensure upright 90 degree positioning while eating and drinking -Avoid foods which are overly tough or hard to chew Recommend 1-2 follow-up visits with TEXTILE TECHNICAL OFFICER for further education in regards to recommended diet and feeding strategies. Therapy Recommendations: Therapy will be initiated Frequency per Week: 1 Number of Weeks: 2 The following compensatory strategies and/or therapeutic exercises will be part of the upcoming therapy/management plan: Additional Swallow(s) per Bolus Public Area Attendant Goals: ? The patient will tolerate the least restrictive diet with a safe/efficient swallow to maintain adequate nutrition and hydration. ? The patient and/or family will participate in further education for swallowing goals. Short Term Goals: ? Diet - The patient will tolerate a minced and moist diet with thin liquids without signs or symptoms of penetration/aspiration 100% of the time. ? Guidelines - The patient will comply with/recall the following guidelines/strategies 100% of the time with maximum cuing: Bolus Volume Change, Rate of Ingestion Change, Liquid Wash, Additional Swallow(s) per Bolus. ? Education - The patient, caregiver will verbalize/demonstrate understanding of the results of this evaluation, the above recommendations, and the swallowing guidelines. Frequency/Duration: 1-2 f/u Date Range for Service Requested: Timeline to reassess: PRN Clinician - Supplemental, Miscellaneous Communication: It is important to note MBSS objective studies are snapshots in time and Patient function might vary with factors such as time of day or concomitant medical conditions. For this reason, the final treatment plan for this patient should rest with their medical care team. Additional recommendations should be considered with the totality of the Patient in mind. Thank for the opportunity to participate in the care of this patient. If you have any questions about the content of this report, please contact the [facility] at [facility]. Education: Education regarding findings from today's study and plans for therapy were provided to Patient and family/caregiver through Verbal Instruction. Understanding was expressed by the Patient and family/caregiver. Locomotive Switch Operator Clinician/Clinical Fellow: No Supervisory Statement: N/A Speech Language Pathologist: Kim Hankins M.A., [facility]-TEXTILE TECHNICAL OFFICER
== END 2024-11-03 10:19 | disposition home or self-care (01) ==
LOC: HO.XRAY 10:18
PROVIDERS: Visit Provider Internal Medicine
DX: R13.10 Dysphagia, unspecified (principal)
CPT/HCPCS: 74230; 92611

== ENCOUNTER → 2024-11-03 10:30 | Outpatient (BNV) | payer MEDICARE, MEDICAID, SELFPAY | PROVIDERS: Visit Provider Radiology Diagnostic Radiology | DX: R13.10 Dysphagia, unspecified (principal) | CPT/HCPCS: 74230 ==

== ENCOUNTER 2024-11-10 09:01 | Outpatient (RCR) | payer MEDICARE, MEDICAID, SELFPAY | END 2024-11-15 11:39 | disposition home or self-care (01) | LOC: HO.SH 09:01 | PROVIDERS: Visit Provider Internal Medicine | DX: R13.10 Dysphagia, unspecified (principal) | CPT/HCPCS: 92526 ==

== ENCOUNTER 2024-12-07 09:54 | Outpatient (AMB) | payer MEDICARE, MEDICAID, SELFPAY ==
--- OUTSIDE RECORDS SUMMARY | 2024-05-27 07:00 | XMS_ITS ---
Author Organization [facility] Address [address] [place] [phone] Care Team Providers Care Director Of Retail Name Role Phone Bony JUAREZ, Karina Primary Care Provider Yusuf Bains [phone] REASON FOR VISIT Patient presents today for a COLON SCREENING Encounters Encounter Location Date Provider Diagnosis [facility] [address] [place] [phone] 05/27/2024 Yusuf Barraza Plan Of Treatment Next Appt Details Provider Name:Yusuf Sherie Christi , 12/22/2024 11:30:00 AM, [address] [place] [address], [id number], Provider Name:Yusuf Barraza , 01/12/2025 02:00:00 PM, [address] [place] [address], Suite [facility], [place], [phone], Progress Notes * GRAEME NICKERSONDOB:[birth year] (59 yo F)Acc No.[id number]:05/27/2024 Progress Notes Patient: GRAEME ADLER Provider: Hayder Barraza MD :1965 A ge:59 Y S ex:Female Date:05/27/2024 Address:[address] [place], [place] [id number] Pcp:Karina Lovett MD Subjective: * Chief Complaints: * 1 . Patient presents today for a COLON SCREENING. * Medical History: Objective: * Vitals: Assessment: Plan: * Treatment: * * The named appointment provid er may or may not be the originator of this progress note, and it is not deemed complete until electronically signed by the appointment provider. Sign off status: Pending * Provider: Hayder Barraza MD Date: 0 05/27/2024 Generated for Brenda cruz/Gorge/Rupaitting on: 0 12/07/2024 10:40 AM EDT
[2024-12-07 10:00] VITALS: BP 110/64; PULSE 101; O2SAT 94; BMI 22.7
--- NOTE | 2024-12-07 10:00 | MHC.PC.OV ---
Vital Signs 12/07/24 10:00 Height 4 ft 8 in Weight 101 lb 6.602 oz BMI 22.7 BP 110/64 Blood Pressure Location Lt brachial Position Sitting Pulse 101 H Pulse Source Pulse Oximeter Pulse Oximetry (%) 94 Oxygen Delivery Method Room Air Intake Visit Reasons: [facility] fall 09/27 Rail Engineer Required: No Accompanied by: Self / Same As Patient Allergies No Known Allergies Allergy (Verified 12/07/24 10:35) Medication List - Last Reconciled 12/07/24 by Maog Baker MD acetaminophen 500 mg PO Q6H PRN 30 days atorvastatin 40 mg PO BEDTIME 90 days cholecalciferol (vitamin D3) 50 mcg PO DAILY 90 days clonazepam 1 mg PO BEDTIME diaper,brief,adult,disposable As directed diphenhydramine HCl (Banophen) 25 mg PO TID PRN 30 days fluoxetine 20 mg PO DAILY 90 days Gait belt As directed guaifenesin (Litzy-Tussin) 200 mg (10 mL) PO Q4H PRN 30 days imipramine HCl 20 mg (2 x 10 mg) PO BID 30 days lacosamide (Vimpat) 100 mg PO BID lactulose 10 grams (15 mL) PO BID PRN 30 days lamotrigine 200 mg PO BID levetiracetam 500 mg PO BID 30 days miscellaneous medical supply [facility]OSPITAL BED WITH MATTRESS phenobarbital 97.2 mg PO BEDTIME polyethylene glycol 3350 (Miralax) 17 grams PO DAILY PRN 30 days Tobacco use date assessed: 12/07/24 Dental Screening Dental Screen Date: 12/07/24 Did you have a dental visit in the last 12 months?: No Did you have a dental problem in the last 6 months where you did not have access to dental care?: No Was dental information given to patient?: No HPI HPI Comments History of Present Illness Details The patient is a 59-year-old female presenting with a history of a fall two months ago. She has a developmental delay and does not follow verbal commands, requiring assistance from staff members for daily activities and medication administration. The patient has a seizure disorder managed by neurology and is currently on Keppra, Lamotrigine, and Phenobarbital. She experiences occasional constipation and mild major depression with anxiety, for which she is on SSRIs. The fall did not result in loss of consciousness or any known neurological deficits, and she is reportedly doing well now. Her PHQ-9 score is negative today, indicating no acute depressive symptoms. [facility] Medical History Epilepsy Insomnia OCD (obsessive compulsive disorder) Obsessive compulsive disorder Chronic static encephalopathy Resides in residential care facility COVID-19 vaccine series completed Seizures Anxiety Chronic idiopathic constipation Difficult bowel movements Screening for breast cancer Screening for colon cancer Screening for diabetes mellitus Screening for hyperlipidemia Incontinence of urine in female Conjunctivitis Mentally challenged Status epilepticus Surgical History H/O tooth extraction Family History Father No problems noted. Mother Diabetes Cancer Social History Household Members Other:: resides in jail Housing: Other Housing Other:: jail Are you a primary career information specialist to a significant other at home: No Do you presently have visiting nurse or other home services: Yes (as above noted) Alcohol intake: never Patient Tobacco Use Status: Never used Tobacco e-Cigarette/Vaping Use: Never Used Second Hand Smoke Exposure: No service: No Current occupational status: disabled Cognitive needs: No Hearing needs: No Vision needs: No Questionnaire PHQ-9 Over the last 2 weeks, how often have you been bothered by any of the following problems? 1. Little interest or pleasure in doing things: not at all 2. Feeling down, depressed, or hopeless: not at all 3. Trouble falling or staying asleep, or sleeping too much: not at all 4. Feeling tired or having little energy: not at all 5. Poor appetite or overeating: not at all 6. Feeling bad about yourself - or that you are a failure or have let yourself or your family down: not at all 7. Trouble concentrating on things, such as reading the newspaper or watching television: not at all 8. Moving or speaking so slowly that other people could have noticed. Or the opposite - being so fidgety or restless that you have been moving around a lot more than usual: not at all 9. Thoughts that you would be better off or of hurting yourself in some way: not at all Total score: 0 Depression Screening Interpretation: Negative Depression Screening Done: Yes 06854 - PHQ-9 Billing: Yes Source: Developed by Drs. Yusuf Landin, Abi Gallardo, Deyvi Lomeli and colleagues, with an educational javi from [employer]. Thrive Questionnaire Date Thrive assessed: 12/07/24 I am a: Parent/Caregiver What is your living situation today?: I have a steady place to live Within the past 12 months, did the food you bought not last and you didn't have the money to get more?: I choose not to answer this question Within the past 12 months, did you worry whether your food would run out before you got money to buy more?: I choose not to answer this question Do you have trouble paying for medicines?: I choose not to answer this question Do you have trouble getting transportation to medical appointments?: I choose not to answer this question Do you have trouble paying your heating and electricity bill?: I choose not to answer this question Do you have trouble taking care of your child, family member or friend?: I choose not to answer this question Do you have trouble with day-to-day activities such as bathing, preparing meals, shopping, managing finances, etc.?: I choose not to answer this question Are you currently unemployed and looking for a job?: I choose not to answer this question Are you interested in more education?: I choose not to answer this question Please select the resources that you would like help with: None Currently or been in a relationship where the following occur: I choose not to answer THRIVE Score: 0 AUDIT C Alcohol Use Questionnaire (AUDIT-C) 1. How often do you have a drink containing alcohol?: Never 3. How often do you have six or more drinks on one occasion?: Never Total Score: 0 JAMES-7 AMB Questionnaire JAMES-7 Date JAMES - 7 assessed: 12/07/24 Feeling nervous, anxious, or on edge: 0 = Not at all Not being able to stop or control worryin = Not at all Worrying too much about different things: 0 = Not at all Trouble relaxin = Not at all Being so restless that it is hard to sit still: 0 = Not at all Becoming easily annoyed or irritable: 0 = Not at all Feeling afraid as if something awful might happen: 0 = Not at all Total JAMES-7 score (0-4 normal; 5-9 mild; 10-14 moderate; 15-21 severe): 0 Source: Developed by Drs. Yusuf Landin, Abi Gallardo, Deyvi Lomeli and colleagues, with an educational javi from [employer]. JAMES-7 Assessment Billing JAMES-7 Assessment Tool: JAMES-7 Assessment 48395 Review of Systems Const All systems reviewed & are unremarkable except as noted in HPI and below Card Denies chest pain at rest, Denies chest pain with activity, Denies edema, Denies irregular heart rhythm, Denies claudication, Denies dyspnea, Denies dyspnea on exertion, Denies orthopnea, Denies paroxysmal nocturnal dyspnea and Denies slow heart rate Resp Denies cough, Denies dyspnea and Denies dyspnea on exertion Physical exam (Primary Care) Vital Signs: Last Vital Signs Pulse 101 H 12/07/24 10:00 BP 110/64 12/07/24 10:00 Pulse Ox 94 12/07/24 10:00 Oxygen Delivery Method Room Air 12/07/24 10:00 BMI result Body Mass Index 22.7 Tobacco/Smoking Status: Tobacco use Status Tobacco use date assessed 12/07/24 12/07/24 10:08 Patient Tobacco Use Status Never used Tobacco 12/07/24 10:08 e-Cigarette/Vaping Use Never Used 12/07/24 10:08 PHQ-9: PHQ-9 Score PHQ-9: Total score 0 12/07/24 10:38 Depression Screening Interpretation: Negative Thrive Assessment: Date of Thrive Assessment Date Thrive assessed 12/07/24 12/07/24 10:08 Currently or been in a relationship where the following occur: I choose not to answer Resp Effort & Inspection: normal respiratory effort Auscultation: clear to auscultation bilaterally Cardio Jugular venous distension: no JVD Rate: regular rate Rhythm: regular rhythm Heart sounds: S1 normal heart sound present and S2 normal heart sound present Extrem General: Yes full ROM Coding Level of Care Code Est Pt Level 4 (09371) Complex EM visit Add On G2211 Diagnoses Status post fall Z91.81 Anxiety F41.9 Mixed hyperlipidemia E78.2 Chronic idiopathic constipation K59.04 Seizures R56.9 Additional Codes JAMES-7 Assessment Billing - JAMES-7 Assessment Tool: JAMES-7 Assessment 16552 ([id number]) PHQ-9 - 84897 - PHQ-9 Billing: Yes ([id number]) Time Spent (min) 20 Assessment & Plan Assessment & Plan (1) Status post fall: Code(s): Z91.81 - History of falling Category: Medical (2) Anxiety: Code(s): F41.9 - Anxiety disorder, unspecified Category: Medical (3) Mixed hyperlipidemia: Code(s): E78.2 - Mixed hyperlipidemia Category: Medical (4) Chronic idiopathic constipation: Code(s): K59.04 - Chronic idiopathic constipation Category: Medical (5) Seizures: Comment: last seizure 06/26/21-full body tremors-lasted 10 seconds Code(s): R56.9 - Unspecified convulsions Category: Medical Plan Plan Patient was informed and verbally consented to the use of an ambient scribe for clinic note documentation during this visit. 1. 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 2. Epilepsy, unspecified, not intractable, without status epilepticus G40.909 HCC 79 The patient is managed by neurology and is on Keppra, Lamotrigine, and Phenobarbital for seizure control. 3. Constipation, unspecified K59.00 The patient experiences occasional constipation, which is being monitored. 4. Major depressive disorder, recurrent, unspecified F33.9 HCC 59 The patient is on SSRIs for management of depression and anxiety, with a negative PHQ-9 score today indicating no acute symptoms. 5. 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
--- OUTSIDE RECORDS SUMMARY | 2024-12-07 10:40 | XMS_ITS | Clinical Summary ---
Author Organization [address] [facility] Address [address] [place] [address] Phone Care Team Providers Care Patent Chemist Name Role Phone Mago Baker MD Primary Care Provider [phone] Allergies No known active allergies Medications atorvastatin [...] Encounters Date Type Department Care Team Description 11/23/2024 11:00 AM EDT Office Visit Orthopedic Surgery [facility] [address] [phone] Blayne Castillo DPM Arthritis of both feet (Primary Dx); Hammertoes of both feet; Cellulitis of left toe; Dermatophytosis, nail from Last 3 Months Social [...] Care Team (Late st Contact Info) Description 02/23/2025 11:00 AM EST Office Visit Orthopedic Surgery [facility] [address] [phone] Blayne Castillo DPM [address] [place] [phone] Health Maintenance Due Date Last Done Comments Breast Cancer Screening 1965 Cervical Cancer Screening: Pap Smear 1985 Pneumococcal Vaccine: 50+ Years (1 of 1 - PCV) 2014 DTaP,Tdap,and Td Vaccines (2 - Td or Tdap) 09/09/2022 09/09/2012 Zoster Vaccines (2 of 2) 10/21/2023 08/26/2023 COVID-19 Vaccine ( - season) 2023 06/08/2020, 05/11/2020 Depression Screening 04/14/2024 Colorectal Cancer Screening: Colonoscopy 08/04/2024 HIV Screening 08/04/2024 Hepatitis C Screening 08/04/2024 Medicare Annual Wellness Visit 08/04/2024 Social Influencers of Health Screening 08/04/2024 Influenza Vaccine (#1) 2024 4, 02/03/2023, 02/20/2022, Additional history exists RSV Immunization [...] Insurance MEDICARE MEDICAID - [place] Care Teams Patent Chemist Relationship Specialty Start Date End Date Mago Baker MD [address] [facility] , [address] [facility] D/B/A: [facility] ANICETO Cook PCP - General Internal Medicine 08/03/24
--- OUTSIDE RECORDS SUMMARY | 2024-12-07 10:41 | XMS_ITS | Patient Health Record ---
Author Organization [facility] Address [address] [place] [phone] Care Team Providers Care Drama Director Name Role Phone Bony JUAREZ, [facility] Primary Care Provider Yusuf Bains [phone] Allergies No Known Allergies Reason For Referral [...] Notes: Nonsmoker; no alcohol Buzz Rojas, brother [phone] Lesley Eden Structural Test Engineer [phone] Nonsmoker; no alcohol Buzz Rojas, brother [phone] Tori Escobedo Structural Test Engineer [phone] Problems Problem Type SNOMED Code ICD Code Onset Dates Problem Status W/U Status Risk Notes Problem 452996660 Encounter for screening for malignant neoplasm of colon (Z12.11) Active confirmed Problem 990329022346703 Preprocedural examination (Z01.818) Active confirmed Problem 82085809 Constipation, unspecified constipation type (K59.00) Active confirmed Problem Diverticulosis of colon (158986248) Diverticulosis of colon (K57.30) Active confirmed Problem Tubulovillous adenoma of colon (2611279590) Tubulovillous adenoma of colon (D12.6) Active confirmed Vital Signs Temperature 97.5 degrees Fahrenheit 09/30/2024 Blood pressure diastolic 01 mm Hg 09/30/2024 Height 58 in 09/30/2024 Blood pressure systolic 001 mm Hg 09/30/2024 Weight 120 lbs 09/30/2024 BMI 25.08 kg/m2 09/30/2024 Procedures Procedure Date Ordered Date Performed Result Body Sit e COLONOSCOPY 09/30/2024 N/A Encounters Encounter Location Date Provider Diagnosis [facility] [address] [place] [address] 09/30/2024 Yusuf Barraza Preprocedural examination Z01.818 ; Tubulovillous adenoma of colon D12.6 and Encounter for screening for malignant neoplasm of colon Z12.11 [facility] [address] [place] [address] 05/26/2024 Yusuf Barraza [facility] [address] [place] [address] 09/30/2024 Yusuf Barraza Assessments Encounter Date Diagnosis [...] Name:Yusuf Barraza , 12/22/2024 11:30:00 AM, [address] [facility] , [place], [place], [phone], Provider Name:Yusuf Barraza , 01/12/2025 02:00:00 PM, [address] [place] [address], [address], [place], [address], Insurance Providers Payer Name Payer Address Payer Phone Subscriber Number Group Number Insured Name Patient Relationship to Insured Coverage Start Date Coverage End Date MEDICARE OF [place] [address] [place] [address] [id number] GRAEME ROJAS Self - patient is the insured MEDICAID OF [facility] [address] [place] [address] [id number] GRAEME ROJAS Self - patient is the insured Medical (General) History Medical History History ICD Code Cognitive delay Seizures OCD Insomnia Screening colonoscopy in August 2021--2 tubulovillous adenomas removed from the cecum. Consent have been obtained from her brother Buzz, who is her legal guardian Surgical History Surgery Date(Month/Year) Oral surgery
== END 2024-12-07 10:43 | disposition home or self-care (01) ==
LOC: HO.HMCH 09:55
PROVIDERS: Visit Provider Internal Medicine
DX: R56.9 Unspecified convulsions (principal); Z91.81 History of falling; F41.9 Anxiety disorder, unspecified; E78.2 Mixed hyperlipidemia; K59.04 Chronic idiopathic constipation

== ENCOUNTER → 2024-12-07 09:54 | Outpatient (BNVA) | payer MEDICARE, MEDICAID, SELFPAY | PROVIDERS: Visit Provider Internal Medicine | DX: F41.9 Anxiety disorder, unspecified (principal); E78.2 Mixed hyperlipidemia; K59.04 Chronic idiopathic constipation; R56.9 Unspecified convulsions; Z91.81 History of falling | CPT/HCPCS: 96127; 99212 ==

== ENCOUNTER 2024-12-22 10:25 | Day surgery (SDC) | payer MEDICARE, MEDICAID, SELFPAY ==
--- OUTSIDE RECORDS SUMMARY | 2024-12-14 14:24 | XMS_ITS | Clinical Summary ---
Author Organization [facility] Address [address] [place] [address] Phone Care Team Providers Care Shafting Worker Name Role Phone Mago Baker MD Primary Care Provider [phone] Allergies No known active allergies Medications atorvastatin [...] 11:00 AM EDT Office Visit Orthopedic Surgery [facility] [address] [phone] Blayne Castillo DPM Arthritis of both feet [...] 11:00 AM EST Office Visit Orthopedic Surgery [facility] [address] [phone] Blayne Castillo DPM [address] [address] Health Maintenance Due Date Last Done Comments Breast Cancer Screening 1965 Cervical Cancer Screening: Pap Smear 1985 Pneumococcal Vaccine: 50+ Years (1 of 1 - PCV) 2014 DTaP,Tdap,and Td Vaccines (2 - Td or Tdap) 09/09/2022 09/09/2012 Zoster Vaccines (2 of 2) 10/21/2023 08/26/2023 Depression Screening 04/14/2024 Colorectal Cancer Screening: Colonoscopy 08/04/2024 HIV Screening 08/04/2024 Hepatitis C Screening 08/04/2024 Medicare Annual Wellness Visit 08/04/2024 Social Influencers of Health Screening 08/04/2024 COVID-19 Vaccine ( season) 2024 06/08/2020, 05/11/2020 Influenza Vaccine (#1) 2024 , 02/03/2023, 02/20/2022, [...] Insurance MEDICARE MEDICAID - [place] Care Teams Shafting Worker Relationship Specialty Start Date End Date Mago Baker MD [address] [facility] , [address] [facility] D/B/A: [facility] [place] PCP - General Internal Medicine 08/03/24
--- NOTE | 2024-12-21 08:29 | P.CONAN_ITS ---
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 Stable at 10/2024 office visit with no seizure for 6 months senior care resident, Guardian for consents Overstim/loud noises can cause stress induced seizures PMFSH Active Problems Active Problems: All Active Problems Dysphagia (Acute) Removal of staple (Acute) Chronic idiopathic constipation (Acute) Tubulovillous adenoma of colon (Acute) Hypovitaminosis D (Acute) Dyslipidemia (Acute) Weight loss (Acute) Mixed hyperlipidemia (Acute) Cellulitis of arm, left (Acute) Fall (Acute) Hospital discharge follow-up (Acute) Occipital scalp laceration (Acute) Left conjunctivitis (Acute) Gait instability (Acute) Knee injury (Acute) Left ankle sprain (Acute) Abrasion of right shoulder (Acute) Status post fall (Acute) Irritation of eyelid (Acute) Head injury (Acute) Physical exam (Acute) Encounter for Medicare annual wellness exam (Acute) Paronychia of fourth toe of left foot (Acute) Paronychia (Acute) Adult general medical exam (Acute) Cervical cancer screening (Acute) Epilepsy (Acute) OCD (obsessive compulsive disorder) (Acute) Obsessive compulsive disorder (Acute) Chronic static encephalopathy (Acute) Seizures (Acute) Anxiety (Acute) Chronic idiopathic constipation (Acute) Difficult bowel movements (Acute) Screening for breast cancer (Acute) Screening for colon cancer (Acute) Screening for diabetes mellitus (Acute) Screening for hyperlipidemia (Acute) Incontinence of urine in female (Acute) Conjunctivitis (Acute) Mentally challenged (Acute) Past Medical History Medical History Epilepsy Insomnia OCD (obsessive compulsive disorder) Obsessive compulsive disorder Chronic static encephalopathy Resides in skilled nursing care facility COVID-19 vaccine series completed Seizures Anxiety Chronic idiopathic constipation Difficult bowel movements Screening for breast cancer Screening for colon cancer Screening for diabetes mellitus Screening for hyperlipidemia Incontinence of urine in female Conjunctivitis Mentally challenged Status epilepticus Family History Family History Father No problems noted. Mother Diabetes Cancer Family history of problems with anesthesia: No Surgical History Surgical History (Updated 12/20/24 @ 15:04 by Tamie Eid RN) Hx of colonoscopy (08/2021) H/O tooth extraction History of Problems with Anesthesia: No Social History Social History Household Members Other:: resides in long-term Housing: Other Housing Other:: long-term Are you a primary day care supervisor to a significant other at home: No Do you presently have visiting nurse or other home services: Yes (as above noted) Alcohol intake: never Patient Tobacco Use Status: Never used Tobacco e-Cigarette/Vaping Use: Never Used Second Hand Smoke Exposure: No Advance Directives: No Advance Directives Information Provided: Yes service: No Current occupational status: disabled Cognitive needs: No Hearing needs: No Vision needs: No Meds Allergies Allergy/AdvReac Type Severity Reaction Status Date / Time No Known Allergies Allergy Verified 12/07/24 10:35 Home Medications ?Medication ?Instructions ?Recorded ?Confirmed ?Last Taken ?Type clonazepam 1 mg tablet 1 mg PO BEDTIME 03/20/20 Unknown History lamotrigine 200 mg tablet 200 mg PO BID 03/20/2012/07 Unknown History lacosamide 100 mg tablet (Vimpat) 100 mg PO BID 12/07/24 08/15/21 08:00 History Assessment and Plan Assessment Anesthesia Assessment: Chart Reviewed Final Anesthetic Review Family History of Problems with Anesthesia: No History of Problems with Anesthesia: No Documented by User: Rasheeda Mercado MD 12/22/24 10:53 [facility] Past Medical History Medical History Epilepsy Insomnia OCD (obsessive compulsive disorder) Obsessive compulsive disorder Chronic static encephalopathy Resides in intermediate school teacher care facility COVID-19 vaccine series completed Seizures Anxiety Chronic idiopathic constipation Difficult bowel movements Screening for breast cancer Screening for colon cancer Screening for diabetes mellitus Screening for hyperlipidemia Incontinence of urine in female Conjunctivitis Mentally challenged Status epilepticus Family History Family History Father No problems noted. Mother Diabetes Cancer Surgical History Surgical History (Updated 12/20/24 @ 15:04 by Tamie Eid RN) Hx of colonoscopy (08/2021) H/O tooth extraction Social History Social History Household Members Other:: resides in long-term Housing: Other Housing Other:: long-term Are you a primary day care supervisor to a significant other at home: No Do you presently have visiting nurse or other home services: Yes (as above noted) Alcohol intake: never Patient Tobacco Use Status: Never used Tobacco e-Cigarette/Vaping Use: Never Used Second Hand Smoke Exposure: No Advance Directives: No Advance Directives Information Provided: Yes service: No Current occupational status: disabled Cognitive needs: No Hearing needs: No Vision needs: No Meds Allergies Allergy/AdvReac Type Severity Reaction Status Date / Time No Known Allergies Allergy Verified 12/07/24 10:35 Home Medications ?Medication ?Instructions ?Recorded ?Confirmed ?Last Taken ?Type clonazepam 1 mg tablet 1 mg PO BEDTIME 03/20/20 Unknown History lamotrigine 200 mg tablet 200 mg PO BID 03/20/2012/07 Unknown History lacosamide 100 mg tablet (Vimpat) 100 mg PO BID 12/07/24 08/15/21 08:00 History Exam Airway Mallampati Class: I (edentulous) TM Dist: >3cm Neck ROM: Full Heart: rrr Lungs: cta Assessment and Plan Assessment Anesthesia Assessment: Anesthesia Plan Discussed Final Anesthetic Review NPO: Yes ASA Class: III Final Preanesthetic Review: No Changes in Pt Med Stat, Meds/Allgs Chart Reviewed and Consent Obtained/Reviewed Patient Risk: Low Procedure Risk: Low Anesthetic Plan Anesthetic Plan: MAC: Disposition: Standard PACU
[2024-12-22 10:57] VITALS: BP 143/77; PULSE 93; RESP 15; TEMP 36.7; O2SAT 98; BMI 20.7
[2024-12-22] MEDS: Lactated Ringers 1,000 ML 100 ML IVCONT (11:11)
[2024-12-22 12:36] VITALS: BP 120/71; PULSE 68; RESP 14; TEMP 36.2; O2SAT 100
--- NOTE | 2024-12-22 12:38 | PM.OP ---
Brief Operative Note Date of Service: 12/22/24 Pre-op diagnosis: Screening, History of polyps Post-op diagnosis: other (Diverticulosis) Procedure: Colonoscopy to the cecum and TI Surgeon: Yusuf Barraza MD Anesthesia: MAC Was an Vice President Payment used for this Procedure?: No Estimated blood loss (mL): 0 Pathology: none sent Condition: stable Disposition: PACU
[2024-12-22 12:51] VITALS: BP 130/73; PULSE 75; RESP 18; TEMP 36.3; O2SAT 100
--- NOTE | 2024-12-22 13:17 | OP_ITS ---
DATE OF SERVICE: 12/22/2024 SURGEON: Yusuf Barraza MD INDICATIONS: The patient presents for evaluation of colorectal cancer screening and personal history of tubulovillous adenomas of the colon. Full consent has been obtained from her brother, Buzz, including risks of bleeding and perforation. PREOPERATIVE DIAGNOSIS: POSTOPERATIVE DIAGNOSIS: PROCEDURE PERFORMED: Colonoscopy to the cecum and terminal ileum. ESTIMATED BLOOD LOSS: COMPLICATIONS: ANESTHESIA: Medication used, monitored anesthesia care. ASSISTANTS: SPECIMENS: PREOPERATIVE DIAGNOSES: Colorectal cancer screening and personal history of tubulovillous adenoma of the colon. POSTOPERATIVE DIAGNOSES: Colorectal cancer screening and personal history of tubulovillous adenoma of the colon, diverticulosis, and internal hemorrhoids. DESCRIPTION OF PROCEDURE: The patient was placed in the left lateral decubitus position. The digital rectal exam revealed no abnormalities. The Olympus video pediatric colonoscope was entered into the rectum and advanced easily to the cecum. Once in the cecum, I did identify a normal-appearing cecal pouch with appendiceal orifice and a normal-appearing ileocecal valve. The terminal ileum was cannulated and appeared normal. Scope was withdrawn back in the colon. The entire cecum and ileocecal valve appeared normal. The scope was slowly withdrawn assessing all mucosal surfaces carefully. Preparation was excellent. I did not visualize any sign of polyps, colitis, nor angiodysplasia. There was a mild amount of sigmoid diverticulosis. In the rectum, scope was retroflexed visualizing internal hemorrhoids but no other pathology. The rectal mucosa appeared normal. The scope was straightened and withdrawn from the patient. She tolerated the procedure well and was returned to the recovery area in stable condition. IMPRESSION: 1. Diverticulosis. 2. Internal hemorrhoids. PLAN: Given her previous history and today's negative exam, I would recommend a followup coloscopy in 5 years for further screening and surveillance. She will otherwise see me on a p.r.n. basis. This has been discussed with her brother Buzz. MD MILLA Feng/GEOFF / [phone] MTDDez
--- NOTE | 2024-12-22 13:23 | PC.NURSE ---
THIS RN CONTACTED THE PATIENT'S GUARDIAN, MATEUS NICKERSON, AND OBTAINED PERMISSION TO SIGN OFF ON THE DISCHARGE PAPERS. / SOCO ALSO CONTACTED THE GUARDIAN. HOSEA WITH HER NET LEAD ARCHITECT, JOCELYNE RAMÍREZ.
== END 2024-12-22 13:30 | disposition home or self-care (01) ==
PROVIDERS: PCP Internal Medicine; Visit Provider Internal Medicine
PROC: 0DJD8ZZ Inspection of Lower Intestinal Tract, Via Natural or Artificial Opening Endoscopic (ICD-10-PCS; CPT 45378; principal; 2024-12-22 11:30)
DX: Z12.11 Encounter for screening for malignant neoplasm of colon (principal); D12.6 Benign neoplasm of colon, unspecified; K57.30 Diverticulosis of large intestine without perforation or abscess without bleeding; K64.8 Other hemorrhoids; Z86.0101 Personal history of adenomatous and serrated colon polyps; Z79.899 Other long term (current) drug therapy
CPT/HCPCS: G0105; J2704

== ENCOUNTER 2025-02-04 15:52 | Outpatient (AMB) | payer MEDICARE, MEDICAID, SELFPAY ==
--- OUTSIDE RECORDS SUMMARY | 2024-05-27 07:00 | XMS_ITS ---
Author Organization [facility] Address [address] [place] [phone] Care Team Providers Care Medical Receptionist Medical Assistant Name Role Phone Bony JUAREZ, Karina Primary Care Provider Yusuf Bains [phone] REASON FOR VISIT Patient presents today for a COLON SCREENING Encounters Encounter Location Date Provider Diagnosis [facility] [address] [place] [phone] 05/27/2024 Yusuf Barraza Plan Of Treatment No Information Progress Notes * GRAEME NICKERSONDOB:[birth year] (59 yo F)Acc No.[id number]:05/27/2024 Progress Notes Patient: GRAEME ADLER Provider: Hayder Barraza MD :1965 A ge:59 Y S ex:Female Date:05/27/2024 Address:[address] [place], [place] [id number] Pcp:Karina Lovett MD Subjective: * Chief Complaints: [...] Barraza MD Date: 0 05/27/2024 Generated for Betseyi nancy/Fasunilg/eTransmitting on: 05:05 PM EDT
--- OUTSIDE RECORDS SUMMARY | 2024-12-22 07:30 | XMS_ITS ---
Author Organization [facility] Address [address] [place] [phone] Care Team Providers Care Director Of Medical Education Name Role Phone Bony JUAREZ, Karina Primary Care Provider Yusuf Bains [phone] REASON FOR VISIT screening, hx polyps Encounters Encounter Location Date Provider Diagnosis [facility] Outpatient [address] [place] [phone] 12/22/2024 Yusuf Barraza Plan Of Treatment No Information Progress Notes * CHANDA NICKERSONJAVONDOB:[birth year] (59 yo F)Acc No.[id number]:12/22/2024 COLON WITH MAC Patient: GRAEME ADLER Provider: Hayder Barraza MD :1965 A ge:59 Y S ex:Female Date:12/22/2024 Address:[address] [place], [place] [id number] Pcp:Karina Lovett MD Subjective: * Chief Complaints: * 1 . Screening, hx polyps. * Medical History: Objective: * Vitals: Assessment: Plan: * Treatment: * * The named appointment provid er may or may not be the originator of this progress note, and it is not deemed complete until electronically signed by the appointment provider. Sign off status: Pending * Provider: Hayder Barraza MD Date: 0 12/22/2024 Generated for Brenda cruz/Gorge/eTransmitting on: 1 05:06 PM EDT
--- OUTSIDE RECORDS SUMMARY | 2025-01-12 10:00 | XMS_ITS ---
Author Organization [facility] Address [address] [place] [phone] Care Team Providers Care Buying Intern Name Role Phone Bony JUAREZ, Karina Primary Care Provider Yusuf Bains [phone] REASON FOR VISIT Patient presents today for burning, Encounters Encounter Location Date Provider Diagnosis [facility] [address] [place] [phone] 01/12/2025 Yusuf Barraza Plan Of Treatment No Information Progress Notes * GRAEME NICKERSONDOB:[birth year] (59 yo F)Acc No.[id number]:01/12/2025 Progress Notes Patient: GRAEME ADLER Provider: Hayder Barraza MD :1965 A ge:59 Y S ex:Female Date:01/12/2025 Address:[address] [place], [place] [id number] Pcp:Karina Lovett MD Subjective: * Chief Complaints: * 1 . Patient presents today for burning,. * Medical History: Objective: * Vitals: Assessment: Plan: * Treatment: * * The named appointment provid er may or may not be the originator of this progress note, and it is not deemed complete until electronically signed by the appointment provider. Sign off status: Pending * Provider: Hayder Barraza MD Date: Generated for Betseyi ng/Fasunilg/eTransmitting on: 05:05 PM EDT
[2025-02-04 15:57] VITALS: BP 140/80; PULSE 93; RESP 18; TEMP 36.2; O2SAT 100; BMI 21.0
--- NOTE | 2025-02-04 15:57 | A.OFFPC_ITS ---
Vital Signs 3 02/04/25 15:57 Height 4 ft 10 in Weight 100 lb 6 oz BMI 21.0 BP 140/80 H Blood Pressure Location Lt brachial Position Sitting Respiration 18 Pulse 93 Pulse Source Pulse Oximeter Temp 97.1 F Temp Source Temporal Artery Scan Pulse Oximetry (%) 100 Oxygen Delivery Method Room Air Intake Visit Reasons: [facility] 01/25 fall [employer] Required: No Accompanied by: Self / Same As Patient Allergies No Known Allergies Allergy (Verified 02/04/25 15:58) Tobacco use date assessed: 02/04/25 Dental Screening Dental Screen Date: 02/04/25 Did you have a dental visit in the last 12 months?: No Did you have a dental problem in the last 6 months where you did not have access to dental care?: No Was dental information given to patient?: No HPI HPI Comments 2 History of Present Illness0 Details 59 y/o Female patient who presents to [facility] today for EDF. Pt was admitted at [facility] on 01/25/25 for an evaluation after a Fall. Pt is accompanied by a Care-taker who provides history - Pt has Autism Spectrum disorder. Pt had a Small Laceration repaired in the ED with 5-0 Plain Gut absorbable suture. No concerns today. [facility] Medical History Epilepsy Insomnia OCD (obsessive compulsive disorder) Obsessive compulsive disorder Chronic static encephalopathy Resides in rn long term care care facility COVID-19 vaccine series completed Seizures Anxiety Chronic idiopathic constipation Difficult bowel movements Screening for breast cancer Screening for colon cancer Screening for diabetes mellitus Screening for hyperlipidemia Incontinence of urine in female Conjunctivitis Mentally challenged Status epilepticus Surgical History Hx of colonoscopy (08/2021) H/O tooth extraction Family History Father No problems noted. Mother Diabetes Cancer Social History Household Members Other:: [facility] Housing: Other Housing Other:: [facility] Are you a primary medicare compliance auditor to a significant other at home: No Do you presently have visiting nurse or other home services: Yes (as above noted) Alcohol intake: never Patient Tobacco Use Status: Never used Tobacco e-Cigarette/Vaping Use: Never Used Second Hand Smoke Exposure: No service: No Current occupational status: disabled Cognitive needs: No Hearing needs: No Vision needs: No Questionnaire Thrive Questionnaire Date Thrive assessed: 09/22/24 I am a: Parent/Caregiver What is your living situation today?: I have a steady place to live Within the past 12 months, did the food you bought not last and you didn't have the money to get more?: I choose not to answer this question Within the past 12 months, did you worry whether your food would run out before you got money to buy more?: I choose not to answer this question Do you have trouble paying for medicines?: I choose not to answer this question Do you have trouble getting transportation to medical appointments?: I choose not to answer this question Do you have trouble paying your heating and electricity bill?: I choose not to answer this question Do you have trouble taking care of your child, family member or friend?: I choose not to answer this question Do you have trouble with day-to-day activities such as bathing, preparing meals, shopping, managing finances, etc.?: I choose not to answer this question Are you currently unemployed and looking for a job?: I choose not to answer this question Are you interested in more education?: I choose not to answer this question Please select the resources that you would like help with: None Currently or been in a relationship where the following occur: I choose not to answer THRIVE Score: 0 JAMES-7 AMB Questionnaire JAMES-7 Date JAMES - 7 assessed: 12/07/24 Source: Developed by Drs. Yusuf Landin, Abi Gallardo, Deyvi Lomeli and colleagues, with an educational javi from [employer]. Review of Systems Const All systems reviewed & are unremarkable except as noted in HPI and below Physical exam (Primary Care) Vital Signs: Last Vital Signs Temp 97.1 F 02/04/25 15:57 Pulse 93 02/04/25 15:57 Resp 18 02/04/25 15:57 BP 140/80 H 02/04/25 15:57 Pulse Ox 100 02/04/25 15:57 Oxygen Delivery Method Room Air 02/04/25 15:57 BMI result Body Mass Index 21.0 Tobacco/Smoking Status: Tobacco use Status Tobacco use date assessed 02/04/25 02/04/25 16:07 Patient Tobacco Use Status Never used Tobacco 02/04/25 16:07 e-Cigarette/Vaping Use Never Used 02/04/25 16:07 Thrive Assessment: Date of Thrive Assessment Date Thrive assessed 09/22/24 02/04/25 16:07 Currently or been in a relationship where the following occur: I choose not to answer Const General: no acute distress Nutritional Appearance: well nourished Limitations: behavioral limitations [facility] Face images: 2 1. A small, well-healed scar noted ? flat, non-tender, and without erythema or induration. Eyes Pupils: Equal, round and reactive pupils present EOM: EOMs intact bilaterally Neuro General: gait normal and moves all extremities Cranial nerves: Yes Equal, round and reactive pupils present Coding Level of Care Code Est Pt Level 4 (00073) Diagnoses Fall, initial encounter W19.XXXA Encounter type: initial encounter Time Spent (min) 20 Assessment & Plan Assessment & Plan (1) Fall: Code(s): W19.XXXA - Unspecified fall, initial encounter Category: Medical Qualifiers: Encounter type: initial encounter Qualified Code(s): W19.XXXA - Unspecified fall, initial encounter Plan: A small, well-healed scar noted ? flat, non-tender, and without erythema or induration. No sutures present. No concerns today.
--- OUTSIDE RECORDS SUMMARY | 2025-02-04 17:05 | XMS_ITS | Clinical Summary ---
Author Organization [address] [facility] Address [address] [place] [address] Phone Care Team Providers Care Burial Vault Setter Name Role Phone Mago Baker MD Primary Care Provider [phone] Allergies No known active allergies Medications atorvastatin [...] 11:00 AM EDT Office Visit [facility] [address] [address] Blayne Castillo DPM Arthritis of both feet [...] 11:00 AM EST Office Visit [facility] [address] [phone] Blayne Castillo DPM [address] [address] Health Maintenance Due Date Last Done Comments Breast Cancer Screening 1965 Colorectal Cancer Screening: Colonoscopy 1965 Cervical Cancer Screening: Pap Smear 1985 Pneumococcal Vaccine: 50+ Years (1 of 1 - PCV) 2014 DTaP,Tdap,and Td Vaccines (2 - Td or Tdap) 09/09/2022 09/09/2012 Zoster Vaccines (2 of 2) 10/21/2023 08/26/2023 Depression Screening 04/14/2024 HIV Screening 08/04/2024 Hepatitis C Screening 08/04/2024 [...] Insurance MEDICARE MEDICAID - [place] Care Teams Burial Vault Setter Relationship Specialty Start Date End Date Mago Baker MD [facility] , [address] [facility] [place] PCP - General Internal Medicine 08/03/24
--- OUTSIDE RECORDS SUMMARY | 2025-02-04 17:06 | XMS_ITS | Patient Health Record ---
Author Organization [facility] Address [address] [place] [phone] Care Team Providers Care Belt Cleaner Name Role Phone Bony JUAREZ, Asma Primary Care Provider Yusuf Bains [phone] Allergies No Known Allergies Reason For Referral No Information Medications Medication SIG (Take, Route, Frequency, Duration) Notes Start Date End Date Status Lactulose 10 GM 1 packet as needed O rally Once a day Active clonazePAM 1 MG Oral; Duration: 30 Active lamoTRIgine 200 MG 1 tablet Orally twic e a day Active MiraLax (colon prep) 17 GM/SCOOP 1 238 Gm bottle mixed with Gatorade or Crystal Light orally begin at 5:00 p.m. the day before the procedure; Duration: 1 days 10/09/2024 Active Ensure - as directed Orally A ctive Dulcolax (colon prep) 5 MG take 2 tablet s at 3:00 p.m and 7:00p.m. Orally two tablets twice a day for one day; Duration: 1 days 10/09/2024 Active Acetaminophen 500 MG 1 capsule as needed Orally every 6 hrs Active Vitamin D-3 25 MCG (1000 UT) 1 capsule Orally Once a day Active Ammonium Lactate 12 % 1 application Exte rnally Twice a day Active Vimpat 100 MG Oral; Duration: 30 Active Banophen 25 MG 1 tablet at bedtime as needed Orally Once a day Active PHENobarbital 97.2 MG Oral; Duration: 30 Active Fycompa 2 MG Oral; Duration: 30 Active levETIRAcetam ER 500 MG 1 tablet Orally Once a day Active Lacosamide 100 MG 1 tablet Orally Twic e a day Active Atorvastatin Calcium 40 MG 1 tablet Oral ly Once a day Active LORazepam 0.5 MG Oral; Duration: 30 Active Polyethylene Glycol - as directed Active FLUoxetine HCl 10 MG Oral; Duration: 30 Active Immunizations Vaccine Route Administration Date [...] Notes: Nonsmoker; no alcohol Buzz Rojas, brother [phone] Lesley Eden Element Winding Machine Tender [phone] Nonsmoker; no alcohol mike Valdezer [phone] Tori Escobedo [employer]inding Machine Tender [phone] Problems Problem Type SNOMED Code ICD Code Onset Dates Problem Status W/U Status Risk Notes Problem Screening for malignant neoplasm of colon (590962521) Encounter for screening for malignant neoplasm of colon (Z12.11) Active confirmed Problem Preprocedural examination (033789721090704) Preprocedural examination (Z01.818) Active confirmed Problem Constipation (66058101) Constipation, unspecified constipation type (K59.00) Active confirmed Problem Diverticulosis of colon (399366329) Diverticulosis of colon (K57.30) Active confirmed Problem Tubulovillous adenoma of colon (5698871463) Tubulovillous adenoma of colon (D12.6) Active confirmed Vital Signs Temperature 97.5 degrees Fahrenheit 09/30/2024 Blood pressure diastolic 01 mm Hg 09/30/2024 Height 58 in 09/30/2024 Blood pressure systolic 001 mm Hg 09/30/2024 Weight 120 lbs 09/30/2024 BMI 25.08 kg/m2 09/30/2024 Procedures Procedure Date Ordered Date Performed Result Body Sit e COLONOSCOPY 09/30/2024 N/A Encounters Encounter Location Date Provider Diagnosis [facility] Outpatient [address] [place] [phone] 12/22/2024 Yusuf Barraza [facility] [address] [place] [address] 09/30/2024 Yusuf Barraza Preprocedural examination Z01.818 ; Tubulovillous adenoma of colon D12.6 and Encounter for screening for malignant neoplasm of colon Z12.11 [facility] [address] [place] [address] 01/12/2025 Yusuf Barraza [facility] [address] [place] [address] 05/26/2024 Yusuf Barraza [facility] [address] [place] [address] 09/30/2024 Yusuf Barraza [facility] [address] [place] [address] 12/17/2024 Yusuf Barraza Assessments Encounter Date Diagnosis (ICD [...] Test Test Name Order Date COLONOSCOPY 06/26/2021 Insurance Providers Payer Name Payer Address Payer Phone Subscriber Number Group Number Insured Name Patient Relationship to Insured Coverage Start Date Coverage End Date MEDICARE OF [place] [address] [place] [address] [phone] [id number] GRAEME ROJAS Self - patient is the insured MEDICAID OF [facility] [address] [place] [address] [id number] GRAEME ROJAS Self - patient is the insured Medical (General) History Medical History History ICD Code Cognitive delay Seizures OCD Insomnia Screening colonoscopy in August 2021--2 tubulovillous adenomas removed from the cecum. Consent have been obtained from her brother Buzz, who is her legal guardian Surgical History Surgery Date(Month/Year) Oral surgery
== END 2025-02-04 16:20 | disposition home or self-care (01) ==
LOC: HO.HMCH 15:52
PROVIDERS: PCP Internal Medicine; Visit Provider Nurse Practitioner Family
DX: S01.112A Laceration without foreign body of left eyelid and periocular area, initial encounter (principal); W19.XXXA Unspecified fall, initial encounter

== ENCOUNTER → 2025-02-04 15:52 | Outpatient (BNVA) | payer MEDICARE, MEDICAID, SELFPAY | PROVIDERS: PCP Internal Medicine; Visit Provider Nurse Practitioner Family | DX: Z09 Encounter for follow-up examination after completed treatment for conditions other than malignant neoplasm (principal); W19.XXXA Unspecified fall, initial encounter | CPT/HCPCS: 99212 ==